=== PATIENT | female | born 1970 | race Caucasian/White ===

== ENCOUNTER 2025-04-21 22:04 | Inpatient (IN) | payer MEDICARE, SELFPAY ==
--- OUTSIDE RECORDS SUMMARY | 2025-03-25 06:20 | XMS_ITS ---
Author Organization [facility] Address [address] [place] [phone] Care Team Providers Care Education Associate Name Role Phone Brenden MENDEZ, Krysta Primary Care Provider Unavailab florentin MirandacolinRaul negron Unavailable [phone] Deandra Riley Unavailable [phone] REASON FOR VISIT hepatic lesion Encounters Encounter Location Date Provider Diagnosis [facility] [address] [place] [phone] 03/25/2025 Deandra Riley Plan Of Treatment No Information Progress Notes * Gloria ST ADOB: [birth year] (54 yo F)Acc No.[id number]:03/25/2025 Progress Notes Patient: Gloria MONTILLA Provider: BABS Calderón :1970 A ge:54 Y S ex:Female Date:03/25/2025 Phone: Address:[address] [place] [address], [address] [place], [place] [phone] Pcp:Krysta Wilcox NP Subjective: * Chief Complaints: * 1 . Hepatic lesion. * Medical History: * Implants: Objective: * Vitals: * Physical Examination: Assessment: Plan: * Treatment: * * Electronic signature of BABS Pulliam on 04/22/2025 at 12:15 AM EDT Sign off status: Pending * Provider: BABS Calderón Date: 0 03/25/2025 Generated for Bronson mark/Azalia/eTransmitting on: 0 04/22/2025 12:15 AM EDT
--- OUTSIDE RECORDS SUMMARY | 2025-04-03 05:30 | XMS_ITS ---
Author Organization [facility] Address [address] [place] [phone] Care Team Providers Care Stick Feeder Name Role Phone Brenden MENDEZ, Krysta Primary Care Provider Unavailab florentin Raul Rust Unavailable [phone] Alka Gonzalez Unavailable [phone] REASON FOR VISIT [facility] 03/11 SOB, [facility] DC 03/24 Encounters Encounter Location Date Provider Diagnosis [facility] [address] [place] [phone] 04/03/2025 Alka Gonzalez Plan Of Treatment No Information Progress Notes * Gloria ST ADOB: [birth year] (54 yo F)Acc No.[id number]:04/03/2025 Patient: Gloria MONTILLA Provider: Nixon Gonzalez NP :1970 A ge:54 Y S ex:Female Date:04/03/2025 Phone: Address:[address] [place] [address], [address] [place] [phone] Pcp:Krysta Wilcox NP Subjective: * Chief Complaints: * 1 . [facility] 03/11 SOB, [facility] DC 03/24. * Medical History: * Implants: Objective: * Vitals: * Physical Examination: Assessment: Plan: * Treatment: * * Electronic signature of DENEEN Dickson, [id number] on 04/22/2025 at 12:15 AM EDT Sign off status: Pending * Provider: Nixon Gonzalez NP Date: 0 04/03/2025 Generated for Bronson mark/Azalia/Jamie on: 0 04/22/2025 12:15 AM EDT
--- OUTSIDE RECORDS SUMMARY | 2025-04-09 06:00 | XMS_ITS ---
Author Organization [facility] Address [address] [place] [phone] Care Team Providers Care Cable Puller Name Role Phone Brenden MENDEZ, Krysta Primary Care Provider Unavailab florentin MirandacolinRaul negron Unavailable [phone] Deandra Riley Unavailable [phone] REASON FOR VISIT hepatic lesion Encounters Encounter Location Date Provider Diagnosis [facility] [address] [place] [phone] 04/09/2025 Deandra Riley Plan Of Treatment No Information Progress Notes * Gloria ROSE ADOB: [birth year] (54 yo F)Acc No.[id number]:04/09/2025 Progress Notes Patient: Gloria MONTILLA Provider: BABS Calderón :1970 A ge:54 Y S ex:Female Date:04/09/2025 Phone: Address:[address] [place] [address], [address] [place], [place] [phone] Pcp:Krysta Wilcox NP Subjective: * Chief Complaints: * 1 . Hepatic lesion. * Medical History: * Implants: Objective: * Vitals: * Physical Examination: Assessment: Plan: * Treatment: * * Electronic signature of BABS Pulliam on 04/22/2025 at 12:14 AM EDT Sign off status: Pending * Provider: BABS Calderón Date: 0 04/09/2025 Generated for Bronson mark/Azalia/eTransmitting on: 04/22/2025 12:14 AM EDT
[2025-04-21 22:12] VITALS: BP 145/106; PULSE 114; PULSE 115; RESP 18; TEMP 37.3; O2SAT 98; BMI 45.5
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
[2025-04-21 22:55] VITALS: RESP 16
[2025-04-21 23:19] LABS: MANUAL DIFF FLAG NO
[2025-04-21 23:20] LABS: Hematocrit 40.1 % (37.0-47.0); Hemoglobin 13.1 g/dl (12.0-16.0); Imm Gran Abs Auto 0.09 X10*3/uL (0.00-0.03); Imm Gran Pct Auto 0.7 % (0.0-0.4); Lymphocytes Absolute Auto 2.2 X10*3/uL (1.2-4.9); Mean Corpuscular HGB Conc 32.7 g/dl (31.0-35.0); Mean Corpuscular Hemoglobin 27.5 pg (27.0-33.0); Mean Corpuscular Volume 84.2 fL (80.0-98.0); NRBC Abs Auto 0.000 X10*3/uL (0.0-0.012); NRBC Pct Auto 0.0 /100WBC (0.0-0.2); Platelet Count 265 X10*3/uL (160-400); Red Blood Count 4.76 X10*6/uL (4.20-5.50); White Blood Count 12.5 X10*3/uL (4.8-10.8)
[2025-04-21 23:23] LABS: Appearance Urine Clear; Glucose Urine UA Negative (Negative); PH 5.5 (5.0-9.0); Specific Gravity - Urine 1.015 (1.005-1.025); UMIC TRIGGER UACC YES
[2025-04-21 23:28] LABS: UACC Culture Trigger YES
[2025-04-21 23:32] LABS: UPreg QC Valid YES
[2025-04-21 23:33] LABS: Cannabinoid Screen Urine Not Detected (Not Detect)
[2025-04-21 23:35] LABS: Alanine Aminotransferase 28 U/L (0-31); Albumin Level 4.3 g/dL (3.5-5.0); Alkaline Phosphatase 137 U/L (39-117); Anion Gap 16 (12-20); Aspartate Amino Transferase 29 U/L (5-31); Blood Urea Nitrogen 16 mg/dL (9-16); Calcium 9.7 mg/dL (8.4-10.2); Carbon Dioxide 25 mmol/L (22-29); Chloride 101 mmol/L (96-108); Creatinine Clr Calc Pharmacy 76.9; Estimated Glomerular Filt Rate 53; Potassium 3.5 mmol/L (3.3-5.1); Sodium 138 mmol/L (135-145); Total Protein 7.3 g/dL (6.5-8.0)
--- OUTSIDE RECORDS SUMMARY | 2025-04-22 00:11 | XMS_ITS | Encounter Summary ---
Author Organization Nataliya Finch [facility] Address [address] [place] [address] Care Team Providers Care Snow Removing Supervisor Name Role Phone Estela Oglesby Primary Care Provider [phone] Encounter Details Date Type Department Care Team (Late st Contact Info) Description 01/03/2024 Lab [facility] Orders Alicia Hood MD [address] [place] [phone] Social History Tobacco Use Types Packs/Day Years Used Date Smoking Tobacco: Never Assessed Comments Unknown Sex and Gender Information Value Date Recorded Sex Assigned at Not on file Legal Sex Female 5:26 PM EST Gender Identity Not on file Sexual Orientation Not on file documented as of this encounter Plan of Treatment Not on file documented as of this encounter Procedures Procedure Name Priority Date/Time Associated Diagnosis Comments CULTURE, AEROBIC, URINE Routine 01/03/2024 11:40 AM EDT documented in this encounter Results * Culture, Aerobic, Urine (01/03/2024 11:40 AM EDT) Culture 10,000-50,000 CFU/mL mixed urogenital dmitri, probable contamination JORDAN 01/04/2024 12:42 PM EDT [facility] Urine MID-STREAM URINE SPECIMEN / Unknown 01/03/2024 11:40 AM EDT 01/03/2024 3:49 PM EDT us Alicia Hood MD MICROBIOLOGY - GENERAL ORDER MACKENZIE Final Result [facility] [address] [place] [address], documented in this encounter Visit Diagnoses Not on filedocumented in this encounter Care Teams Snow Removing Supervisor Relationship Specialty Start Date End Date Estela Oglesby [address] [place] [phone] PCP - General 01/02/24 documented as of this encounter
--- OUTSIDE RECORDS SUMMARY | 2025-04-22 00:11 | XMS_ITS | Encounter Summary ---
Author Organization [facility] Address [address] [place] [address] Care Team Providers Care Storage Consultant Name Role Phone Jaylyn Andrews MD Unavailable [phone] Irena Rodriguez MD Unavailable Ashtyn Love RN Unavailable Grupo Albarran NP Primary Care Provider [phone] Krysta Wilcox NP Primary Care Provider [phone] Encounter Details Date Type Department Care Team (Late st Contact Info) Description 01/27/2025 Lab Requisition [address] [address] Daniel Springer NP [address] [place] [phone] Major depressive disorder, recurrent severe without psychotic features (HCC) Social History Tobacco Use Types Packs/Day Years Used Date Smoking Tobacco: Former Cigarettes Q uit: 12/20/1990 Smokeless Tobacco: Never Alcohol Use Standard Drinks/Week Comments Never 0 (1 standard drink = 0.6 oz pur e alcohol) Housing Stability - SDOH Screener Answer Date Recorded What is your living situation today? Steady hous ing 04/11/2024 Do you need help with Housing/Prison resources? Not on file 04/11/2024 Patient indicated no issues from the most recent SDOH questionnaire Not on file 04/11/2024 Homeless diagnosis active in problem list or in an encounter in the past year? Not on file 04/11/2024 Transportation - SDOH Screener Answer D ate Recorded Do you have trouble getting transportation to medical appointments? No 04/11/2024 Do you need help with Transp ortation to medical appointments? Not on file 04/11/2024 Patient indicated no issues from the most recent SDOH questionnaire Not on file 04/11/2024 Food Insecurity - SDOH Screener Answer Date Recorded Within the past 12 months, t he food you bought just didn't last and you didn't have money to get more? Sometimes true Within the past 12 months, y ou worried whether your food would run out before you got money to buy more? Sometimes true 2023 Do you need help with Food resources? Not on shay e 04/11/2024 Patient indicated no issues from the most recent SDOH questionnaire Not on file 04/11/2024 Utilities - SDOH Screener Answer Date R ecorded Do you have trouble paying y our heating and/or electricity bill? No 04/11/2024 Do you need help with Utilities? Not on file 04/11/2024 Patient indicated no issues from the most recent SDOH questionnaire Not on file 04/11/2024 Comments No Sex and Gender Information Value Date Recorded Sex Assigned at Female 03/17/2024 11:06 AM EDT Legal Sex Female 7:42 PM EDT Gender Identity Female 03/17/2024 11:06 AM EDT Sexual Orientation Straight 03/17/2024 11 :06 AM EDT documented as of this encounter Plan of Treatment Upcoming Encounters Date Type Department Care Team (Late st Contact Info) Description 06/25/2025 9:40 AM EDT Office Visit [facility] [address] [place] [address] Arnel Causey MD [address] [place] [address] documented as of this encounter Procedures Procedure Name Priority Date/Time Associated Diagnosis Comments LIPID PROFILE, REFLEX DIRECT LDL Routine 01/27/2025 6:15 AM EDT TSH WITH REFLEX TO FREE T4 Routine 01/27/2025 6:15 AM EDT HEMOGLOBIN A1C Routine 01/27/2025 6:15 AM EDT URINE COMPLETE Routine 01/26/2025 12:40 PM EDT Major depressive disorder, recurrent severe without psychotic features (HCC) URINE CULTURE AND COLONY COUNT Routine 01/26/2025 12:40 PM EDT Major depressive disorder, recurrent severe without psychotic features (HCC) documented in this encounter Results * TSH with reflex to Free T4 (01/27/2025 6:15 AM EDT) TSH 1.973 0.550 - 4.780 uIU/mL 01/27/2025 9:59 AM EDT [facility] Blood Venipuncture / Unknown 01/27/2025 6:15 AM EDT 01/27/2025 9:06 AM EDT Narrative [facility] - 01/27/2025 9:59 AM EDT NOTE: Effective 10/28/24, the reference range has changed as follows: Old reference ranges: 0 up to 2 Years: 0.870-6.150 uIU/mL 2 Years up to 12 Years: 0.670-4.160 uIU/mL 12 Years up to 18 Years: 0.480-4.170 uIU/mL 18 Years +: 0.340-4.820 uIU/mL New Reference ranges: 0 up to 2 Years: 0.870-6.150 uIU/mL 2 Years up to 13 Years: 0.670-4.160 uIU/mL 13 Years up to 21 Years: 0.480-4.170 uIU/mL 21 Years +: 0.550-4.780 uIU/mL us Daniel [facility] LAB BLOOD ORDERABLES Final R esult [facility] [address] [place] [address] * Hemoglobin A1c (01/27/2025 6:15 AM EDT) Hemoglobin A1C 5.2 4.0 - 6.0 % 01/27/2025 10:06 AM EDT [facility] Estimated Average Glucose eAG 102.5 85.0 - 126.0 mg/dL 01/27/2025 10:06 AM EDT [facility] Blood Venipuncture / Unknown 01/27/2025 6:15 AM EDT 01/27/2025 9:06 AM EDT [facility] LAB BLOOD ORDERABLES Final R esult Performing Organization Address City/[facility] de Phone Number [facility] [address] [place] [phone] * (ABNORMAL) Lipid profile, reflex direct LDL (01/27/2025 6:15 AM EDT) Cholesterol 137 <200 mg/dL 01/27/2025 9:59 AM EDT [facility] Triglycerides 108 <150 mg/dL 01/27/2025 9:59 AM EDT [facility] HDL 34.2(L) >=60.0 mg/dL 01/27/2025 9:59 AM EDT [facility] LDL Calculated 81 0 - 100 mg/dL 01/27/2025 9:59 AM EDT [facility] Cardiac Risk Factor 4.0 0.0 - 4.4 01/27/2025 9:59 AM EDT [facility] Blood Venipuncture / Unknown 01/27/2025 6:15 AM EDT 01/27/2025 9:06 AM EDT Narrative [facility] - 01/27/2025 9:59 AM EDT Cardiac Risk Factor: Males Females 2x Average Risk 9.6 7.1 3x Average Risk 23.4 11.0 [facility] LAB BLOOD ORDERABLES Final R esult Performing Organization Address [facility] Co de Phone Number [facility] [address] [place] [phone] * Urine Culture and [place] Count (01/26/2025 12:40 PM EDT) Culture 10,000 - 50,000 colonies/ml Mixed Gram Positive Organisms SUSCEPTIBIL ITY TESTING 01/28/2025 11:01 AM EDT [facility] Urine Urine specimen obtained by clean catch procedure / Unknown Collection / Unknown 01/26/2025 12:40 PM EDT 01/27/2025 9:51 AM EDT Narrative [facility] - 01/28/2025 11:01 AM EDT Unable to determine if a potential pathogen is present due to the presence of multiple colonizing Organisms. If Clinically indicated, a Repeat Culture is recommended. Daniel Springer NP MICROBIOLOGY - GENERAL ORDER [place]ACK[place]ZIE Final Result [facility] [address] [place] [address] * (ABNORMAL) Urine Complete (01/26/2025 12:40 PM EDT) Clarity, UA Turbid(A) Clear 01/27/2025 9:51 AM EDT [facility] Color Yellow Colorless, Yellow, Light-Yello w, Dark-Yellow 01/27/2025 9:51 AM EDT [facility] Specific [place] 1.018 1.000 - 1.025 01/27/2025 9:51 AM EDT [facility] pH 5.5 5.0 - 8.0 01/27/2025 9:51 AM EDT [facility] Protein Negative Negative, 10 , 20 mg/dL 01/27/2025 9:51 AM EDT [facility] Glucose Normal Normal, 30 , 50 mg/dL 01/27/2025 9:51 AM EDT [facility] Ketones Negative Negative, Trace mg/dL 01/27/2025 9:51 AM EDT [facility] Blood Negative Negative, 0.03 mg/dL 01/27/2025 9:51 AM EDT [facility] Bilirubin UA Negative Negative mg/dL 01/27/2025 9:51 AM EDT [facility] Urobilinogen Normal Normal mg/dL 01/27/2025 9:51 AM EDT [facility] Nitrite Negative Negative 01/27/2025 9:51 AM EDT [facility] Leukocyte Esterase 75(A) Negative, 25 Yoon/uL 01/27/2025 9:51 AM EDT [facility] WBC 6-10(A) 0 - 2 HPF 01/27/2025 9:51 AM EDT [facility] RBC 0-2 0-2 HPF HPF 01/27/2025 9:51 AM EDT [facility] Squam Epithelial Moderate(A) Few HPF 025 9:51 AM EDT [facility] Mucus Few Few HPF 01/27/2025 9:51 AM EDT [facility] Bacteria Few(A) None Seen HPF 01/27/2025 9:51 AM EDT [facility] Urine Urine specimen obtained by clean catch procedure / Unknown Collection / Unknown 01/26/2025 12:40 PM EDT 01/27/2025 9:06 AM EDT Narrative [facility] - 01/27/2025 9:51 AM EDT A urine culture is being performed on this specimen due to established reflex criteria [facility] DOUBLE END TENONER OPERATOR URINE ORDERABLES Final Resul t [facility] [address] [place] [phone] documented in this encounter Visit Diagnoses Diagnosis Major depressive disorder, recurrent severe without psychotic features (HCC) documented in this encounter Care Teams Storage Consultant Relationship Specialty Start Date End Date Ha-Jaylyn Saunders MD PCP - Family Medicine 03/01/14 Grupo Goncalves NP [address] [place] [address] PCP - General Nurse Practitioner 11/10/23 03/22/25 Krysta Wilcox NP [address] [place] [address] PCP - General Family Medicine 03/23/25 Irena Rodriguez MD [address] [place] [address] [place] [address] Physician Hematology and Oncology 12/27/21 Ashtyn Love, RN Registered Nurse 12/27/21 documented as of this encounter
--- OUTSIDE RECORDS SUMMARY | 2025-04-22 00:11 | XMS_ITS | Clinical Summary ---
Author Organization [facility] Address [address] [place] [id number] Care Team Providers Care Formula Mixer Name Role Phone Estela Oglesby Primary Care Provider [phone] Allergies Active Allergy Reactions Criticality Noted Date Comments Ciprofloxacin Hives Identified As: From Cipro Iodinated Contrast Media Anaphylaxis Identified As: Contrast, CT, iodinated Olanzapine Swelling Identified As: From Zyprexa Ondansetron Rash Identified As: From Zofran Penicillins Rash Risperidone Hives Identified As: From Risperdal Sertraline Other (See Comments) Identified As: From Zoloft; Other Reaction(s): Depression Shellfish Derived Anaphylaxis Sulfamethoxazole Rash Identified As: From Bactrim Trimethoprim Rash Identified As: From Bactrim Medications isosorbide mononitrate ER (IMDUR) 30 MG 24 hr tablet 30 MG PO QAM 4 Active carvediloL (COREG) 6.25 MG tablet 6.25 MG PO DAILY 4 Active bumetanide (BUMEX) 2 MG tablet 2 MG PO DAILY 4 Active atorvaSTATin (LIPITOR) 40 MG tablet 40 MG PO QPM 4 Active ezetimibe (ZETIA) 10 mg tablet 10 MG PO QAM 4 Active aspirin 81 MG EC tablet 81 MG PO DAILY 4 Active budesonide-glyco pyr-formoterol (BREZTRI AEROSPHERE) 160-9-4.8 mcg/actuation HFAA 1 INH INHALATION BID 4 Active spironolactone (ALDACTONE) 25 MG tablet 25 MG PO QAM 4 Active ARIPiprazole (ABILIFY) 10 MG tablet 25 MG PO QAM 4 Active nitroglycerin (NITROSTAT) 0.4 MG SL tablet 0.4 MG SUBLINGUAL Q5M PRN Chest Pain 4 Active pantoprazole (PROTONIX) [address] tablet 40 MG PO QAM 4 Active Active Problems Problem Noted Date Diagnosed Date Depression, unspecified 01/02/2024 Social History Tobacco Use Types Packs/Day Years Used Date Smoking Tobacco: Never Assessed Comments Unknown Sex and Gender Information Value Date Recorded Sex Assigned at Not on file Legal Sex Female 5:26 PM EST Gender Identity Not on file Sexual Orientation Not on file Last Filed Vital Signs Vital Sign Reading Time Taken Comments Blood Pressure - - Pulse - - Temperature - - Respiratory Rate - - Oxygen Saturation - - Inhaled Oxygen Concentration - - Weight 121 kg (266 lb 12.1 oz) 01/02/2024 4:09 P M EDT Height 152.4 cm (5') 01/02/2024 4:09 PM EDT Body Mass Index 52.1 01/02/2024 4:09 PM EDT Plan of Treatment Health Maintenance Due Date Last Done Comments Blood Pressure 1971 Lipid Panel 1971 Depression Screening 1975 Hepatitis C Screening 1989 DTaP,Tdap,and Td Vaccines (1 - Tdap) 1990 Pap Smear 1992 Cervical Cancer Screening 2001 HPV/Cotest 2001 Breast Cancer Screening 2011 CT Colonography 2016 Colonoscopy 2016 Colorectal Cancer Screening 2016 FIT 2016 FOBT 2016 Multitarget Stool DNA (Cologuard) 2016 Sigmoidoscopy 2016 Pneumococcal Vaccine (1 of 1 - PCV) 2021 Zoster Vaccine (1 of 2) 2021 COVID-19 Vaccine ( - 2023-2 5 season) 2024 Influenza Vaccine (#1) 2025 Meningococcal B Vaccines Aged Out No longer eligible based on patient's age to complete this topic Meningococcal Vaccines Aged Out No lo nger eligible based on patient's age to complete this topic Pneumococcal Vaccine: Pediat rics (0 to 5 Years) and At-Risk Patients (6 to 64 Years) Aged Out No longer eligible b ased on patient's age to complete this topic Care Teams Formula Mixer Relationship Specialty Start Date End Date Estela Oglesby [address] [place] [phone] PCP - General 01/02/24
--- OUTSIDE RECORDS SUMMARY | 2025-04-22 00:11 | XMS_ITS | Encounter Summary ---
Author Organization [facility] Address [address] [place] [address] Care Team Providers Care Stone Spreader Operator Name Role Phone Jaylyn Andrews MD Unavailable [phone] Irena Rodriguez MD Unavailable Ashtyn Love RN Unavailable Grupo Albarran NAPHTHA WASHING SYSTEM OPERATOR Primary Care Provider [phone] Krysta Wilcox NAPHTHA WASHING SYSTEM OPERATOR Primary Care Provider [phone] Encounter Details Date Type Department Care Team (Late st Contact Info) Description 03/18/2025 Pharmacy Visit [facility] [address] [place] [address] Social History Tobacco Use Types Packs/Day Years Used Date Smoking Tobacco: Former Cigarettes Q uit: 12/20/1990 Smokeless Tobacco: Never Alcohol Use Standard Drinks/Week Comments Never 0 (1 standard drink = 0.6 oz pur e alcohol) Housing Stability - SDOH Screener Answer Date Recorded What is your living situation today? Steady hous ing 03/17/2025 Do you need help with Housing/Mcc resources? Not on file 03/17/2025 Patient indicated no issues from the most recent SDOH questionnaire Not on file 03/17/2025 Homeless diagnosis active in problem list or in an encounter in the past year? Not on file 03/17/2025 Transportation - SDOH Screener Answer D ate Recorded Do you have trouble getting transportation to medical appointments? No 03/17/2025 Do you need help with Transp ortation to medical appointments? Not on file 03/17/2025 Patient indicated no issues from the most recent SDOH questionnaire Not on file 03/17/2025 Food Insecurity - SDOH Screener Answer Date Recorded Within the past 12 months, t he food you bought just didn't last and you didn't have money to get more? Often true 03/17/2025 Within the past 12 months, y ou worried whether your food would run out before you got money to buy more? Often true 2024 Do you need help with Food resources? Not on shay e 03/17/2025 Patient indicated no issues from the most recent SDOH questionnaire Not on file 03/17/2025 Utilities - SDOH Screener Answer Date R ecorded Do you have trouble paying y our heating and/or electricity bill? No 03/17/2025 Do you need help with Utilities? Not on file 03/17/2025 Patient indicated no issues from the most recent SDOH questionnaire Not on file 03/17/2025 Comments No Sex and Gender Information Value [...] Description 06/25/2025 9:40 AM EDT Office Visit [facility] [address] [place] [address] Arnel Causey MD [address] [place] [address] documented as of this encounter Visit Diagnoses Not on filedocumented in this encounter Care Teams Stone Spreader Operator Relationship Specialty Start Date End Date Jaylyn Andrews MD PCP - Family Medicine 03/01/14 Grupo Goncalves NP [address] [place] [address] PCP - General Nurse Practitioner 11/10/23 03/22/25 Krysta Wilcox NP [address] [place] [address] PCP - General Family Medicine 03/23/25 Irena Rodriguez MD [address] [place] [address] [place] [address] Physician Hematology and Oncology 12/27/21 Ashtyn Love, RN Registered Nurse 12/27/21 documented as of this encounter
--- OUTSIDE RECORDS SUMMARY | 2025-04-22 00:12 | XMS_ITS | Encounter Summary ---
Author Organization [facility] Address [address] [place] [address] Phone Care Team Providers Care Histologic Aide Name Role Phone Luci Chilel MD Primary Care Provider Luz Mccartney MD Unavailable Unavailable Krysta Wilcox NP Unavailable Encounter Details Date Type Department Care Team (Late st Contact Info) Description 05/28/2018 Orders Only [facility] [address] [place] [id number] Luz Mccartney MD Malignant neoplasm of central portion of right female breast, unspecified estrogen receptor status (Primary Dx) Social History Tobacco Use Types Packs/Day Years Used Date Smoking Tobacco: Never Smokeless Tobacco: Never Alcohol Use Standard Drinks/Week Comments No 0 (1 standard drink = 0.6 oz pur e alcohol) sober since 10/2013 Comments Unknown Sex and Gender Information Value Date Recorded Sex Assigned at Female 01/05/2025 9:33 AM EDT Legal Sex Female 7:09 PM EST Gender Identity Female 01/05/2025 2:04 PM EDT Sexual Orientation Straight 01/05/2025 2: 04 PM EDT documented as of this encounter Plan of Treatment Scheduled Orders Name Type Priority Associated Diagnoses Orde r Schedule SURGICAL PATHOLOGY SPECIMEN EXAM Pathology and Cytology STAT Malignant neoplasm of central portion of right female breast, unspecified estrogen receptor status 1 Occurrences starting 05/28/2018 until 05/28/2019 documented as of this encounter Visit Diagnoses Diagnosis Malignant neoplasm of central portion of right female breast, unspecified estrogen receptor status- Primary documented in this encounter Care Teams Histologic Aide Relationship Specialty Start Date End Date Luci Chilel MD PCP - General Internal Medicine 04/11/18 02/10/23 Krysta Wilcox NP [address] [place] [address] PCP - Insurance 01/05/25 Luz Mccartney MD Resident Oncology 05/28/18 documented as of this encounter
--- OUTSIDE RECORDS SUMMARY | 2025-04-22 00:12 | XMS_ITS | Encounter Summary ---
Author Organization [facility] Address [address] [facility] 7[address] [place] [address] Care Team Providers Care Staff Registered Nurse Name Role Phone WilcoxKrysta aldridge [facility] Primary Care Provider Reason for Visit * Reason Onset Date Comments Shortness of Breath 03/06/2025 Encounter Details Date Type Department Care Team (Late st Contact Info) Description 03/06/2025 Telephone HF [facility] [address] [facility], [address] [place] [address] Krysta iWlcox [facility] [address] [place] [address] Shortness of Breath Social History Tobacco Use Types Packs/Day Years Used Date Smoking Tobacco: Never Smokeless Tobacco: Never Alcohol Use Standard Drinks/Week Comments Never 0 (1 standard drink = 0.6 oz pur e alcohol) Alcohol Answer Date Recorded Q1: How often do you have a drink containing alc ohol? 1 12/09/2024 Q2: How many drinks containi ng alcohol do you have on a typical day when you are drinking? 0 12/09/2024 Q3: How often do you have six or more drinks on one occasion? 1 12/09/2024 Depression Answer Date Recorded Patient Health Questionnaire-9 Score 6 10/31/2023 Patient Health Questionnaire-9 Score 6 10/31/2023 Last PHQ-9: Questionnaire Data Not on file 0 10/31/2023 Housing Stability Answer Date Recorded What is your housing situation today? I have grace sparrow 02/16/[address] you li ve. Do you have problems with any of the following? None of the above 02/16/2025 Food Insecurity Answer Date Recorded Within the past 12 months, y ou worried that your food would run out before you got money to buy more: Never True 02/16/2025 Within the past 12 months,th e food you bought just didn't last and you didn't have enough money to get more: Never True Transportation Answer Date Recorded In the past 12 months, has l ack of transportation kept you from medical appts, meetings, work or from getting things needed for daily living? No 02/16/2025 Utilities Answer Date Recorded In the past 12 months, has t he electric, gas, oil or water company threatened to shut off services in your home? No 02/16/2025 Depression Answer Date Recorded Patient Health Questionnaire-2 Score 1 11/28/2024 Internet Access Answer Date Recorded Internet Access Q1 Yes 02/16/2025 Internet Access Q2 Not on file 02/16/2025 Comments No Sex and Gender Information Value Date Recorded Sex Assigned at Female 07/30/2023 12:25 PM EST Legal Sex Female 9:27 AM EDT Gender Identity Female 07/30/2023 12:25 PM EST Sexual Orientation Don't know 07/30/2023 12 :25 PM EST documented as of this encounter Miscellaneous Notes * Telephone Encounter - Ester Quintero LPN - 03/06/2025 5:06 PM EDT Patient walked into clinic just now asking for appointment of which none were available at this time. She states she was just discharged from [facility] in [place] this morning. States on discharge her BP was 150/86. She believes she has a CHF exacerbation and states she is swollen.Patients Pulse 117 but she is moving around the waiting room at this time and is obese. O2 96. States she has no had her inhaler all week due to hospitalization but she does have it now. Advised her to use albuterol inhaler at this time, she also takes carvidolol which she has not yet taken. She will take her medications, does not wish to go to ER at this time. Patient given appointment for tomorrow morning and is aware if chest pain, or SOB not relieved by inhaler to report to ED via 911. documented in this encounter Plan of Treatment Not on file documented as of this encounter Visit Diagnoses Not on filedocumented in this encounter Additional Health Concerns Assessment Noted Time PHQ-9 Depression Total Score: 6 10/31/19 24 11:02 AM EST documented as of this encounter Care Teams Staff Registered Nurse Relationship Specialty Start Date End Date Krysta Wilcox FNP- [address] [place] [phone] PCP - General Family Medicine 06/11/23 documented as of this encounter
--- OUTSIDE RECORDS SUMMARY | 2025-04-22 00:12 | XMS_ITS | Encounter Summary ---
Author Organization [facility] Address [address] [facility] 7[address] [place] [address] Care Team Providers Care Gluer And Wedger Name Role Phone WilcoxKrysta aldridge [facility] Primary Care Provider Encounter Details Date Type Department Care Team (Late st Contact Info) Description 02/16/2025 Results Follow-Up HF [facility] PRIMARY/PEDS [address] [facility], [address] [place] [address] Krysta Wilcox FNP-BC [address] [place] [address] NT-proBNP, Hepatitis A Antibody, Total Social History Tobacco Use Types Packs/Day Years [...] PM EST documented as of this encounter Plan of Treatment Not on file documented as of this encounter Visit Diagnoses Not on filedocumented in this encounter Additional Health Concerns Assessment Noted Time PHQ-9 Depression Total Score: 6 10/31/19 24 11:02 AM EST documented as of this encounter Care Teams Gluer And Wedger Relationship Specialty Start Date End Date Krysta Wilcox FNP- [address] [place] [address] PCP - General Family Medicine 06/11/23 documented as of this encounter
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
--- OUTSIDE RECORDS SUMMARY | 2025-04-22 00:12 | XMS_ITS | Encounter Summary ---
Author Organization [facility] r Address [address] [place] [address] Phone Care Team Providers Care Size Painter Name Role Phone Luci Chilel MD Primary Care Provider [phone] Luz Mccartney MD Unavailable Unavailable Krysta Wilcox NP Unavailable Encounter Details Date Type Department Care Team (Late st Contact Info) Description 12/13/2016 Orders Only [facility] [address] [place] [phone] Luz Mccartney MD Social History Tobacco Use Types Packs/Day Years Used Date Smoking Tobacco: Never Comments Unknown Sex and Gender Information Value Date Recorded Sex Assigned at Female 01/05/2025 9:33 AM EDT Legal Sex Female 7:09 PM EST Gender Identity Female 01/05/2025 2:04 PM EDT Sexual Orientation Straight 01/05/2025 2: 04 PM EDT documented as of this encounter Plan of Treatment Not on file documented as of this encounter Procedures Procedure Name Priority Date/Time Associated Diagnosis Comments PATHOLOGY, OUTSIDE CONSULT Routine 12/13/2016 12:00 AM EDT documented in this encounter Results * Pathology, Outside Consult (12/13/2016 12:00 AM EDT) Surgical Pathology Consultation Report Date Taken: 12/13/2016 Date Received: 05/28/2018 Physicians: Luz Mccartney MD Outside Institution: [facility] DEPARTMENT OF PATHOLOGY [address] [place] [address] Specimen(s) Received RIGHT BREAST ASPIRATE MASS @ 9 O'CLOCK, 5.0 cm FROM NIPPLE, CYTOSPIN AND CELL BLOCK ([id number]) Final Diagnosis RIGHT BREAST ASPIRATE MASS @ 9 O'CLOCK, 5.0 cm FROM NIPPLE, CYTOSPIN AND CELL BLOCK ([id number]): NECROINFLAMMATORY DEBRIS. NEGATIVE FOR MALIGNANCY. CYTOKERATIN IMMUNOHISTOCHEMICAL STAIN PERFORMED AT OUTSIDE INSTITUTION SUPPORTS THE DIAGNOSIS. Report Electronically Signed Robert Teague MD Clinical diagnosis and History Right breast seroma/mass @ 9 o'clock, 5.0 cm from nipple Slide Block Description Received from [facility] thru the office of Dr. Luz Mccartney are three slides labeled ([id number]) belonging to the above named patient with their pathology report. By the signature above, the senior pathologist certifies that s/he personally conducted the evaluation of the described specimen(s) and rendered the diagnosis(es) related thereto. COPATH 12/13/2016 05/28/2018 5:4 6 PM EDT us Luz Mccartney MD PATHOLOGY/CYTOLOGY ORDERABLES Fi nal Result [facility] Department of Anatomic Pathology CLIA:[id number] [address] [place] [address], documented in this encounter Visit Diagnoses Not on filedocumented in this encounter Care Teams Size Painter Relationship Specialty Start Date End Date Luci Chilel MD PCP - General Internal Medicine 04/11/18 02/10/23 Krysta Wilcox NP [address] [place] [address] [address] [place] [address] PCP - Insurance 01/05/25 Luz Mccartney MD Resident Oncology 05/28/18 documented as of this encounter
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
--- OUTSIDE RECORDS SUMMARY | 2025-04-22 00:12 | XMS_ITS | Encounter Summary ---
Author Organization [employer] Address [address] [facility] 7t [place] [address] Care Team Providers Care Assistant Project Manager Name Role Phone WilcoxKrysta aldridge [facility] Primary Care Provider [phone] Reason for Visit * Reason Onset Date Comments Referral 02/11/2025 Encounter Details Date Type Department Care Team (Late st Contact Info) Description 02/11/2025 Telephone HF [facility] PRIMARY/PEDS [address], [address] [place] [address] Krysta [facility] [address] [place] [address] Referral Social History Tobacco Use Types Packs/Day Years [...] What is your housing situation today? I do not have housing (Staying with others, in a hotel, in a chcf, living outside on the street, on a beach, in a car, or in a park 01/10/[address] you li ve. Do you have problems with any of the following? None of the above 01/10/2024 Food Insecurity Answer Date Recorded Within the past 12 months, y ou worried that your food would run out before you got money to buy more: Sometimes True 2023 Within the past 12 months,th e food you bought just didn't last and you didn't have enough money to get more: Sometimes True 01/10/2024 Transportation Answer Date Recorded In the past 12 months, has l ack of transportation kept you from medical appts, meetings, work or from getting things needed for daily living? No 10/31/2023 Utilities Answer Date Recorded In the past 12 months, has t he electric, gas, oil or water company threatened to shut off services in your home? No 10/31/2023 Depression Answer Date Recorded Patient Health Questionnaire-2 Score 1 11/28/2024 Comments No Sex and Gender Information Value Date Recorded Sex Assigned at Female 07/30/2023 12:25 PM EST Legal Sex Female 9:27 AM EDT Gender Identity Female 07/30/2023 12:25 PM EST Sexual Orientation Don't know 07/30/2023 12 :25 PM EST documented as of this encounter Miscellaneous Notes * Telephone Encounter - Alisha Bender NP - 02/17/2025 1:16 PM EDT Reviewing labs that were ordered at her last visit with m 12/19/24. I saw note pt was seen in ER forchest pain. Has follow up with you scheduled on 03/16. * Telephone Encounter - Ester Quintero LPN - 02/17/2025 10:49 AM EDT Patient has an appointment with Juanita on 03/17/25. Does she need us to place a new referral for this? * Telephone Encounter - Chelo Dudley - 02/11/2025 9:00 AM EDT Patient calling requesting new referral for PSY therapy. Pt last saw Dulce Valdes And Sara Hansen documented in this encounter Plan of Treatment Not on file documented as of this encounter Visit Diagnoses Not on filedocumented in this encounter Additional Health Concerns Assessment Noted Time PHQ-9 Depression Total Score: 6 10/31/19 24 11:02 AM EST documented as of this encounter Care Teams Assistant Project Manager Relationship Specialty Start Date End Date Krysta Wilcox FNP-BC [address] [place] [address] PCP - General Family Medicine 06/11/23 documented as of this encounter
--- OUTSIDE RECORDS SUMMARY | 2025-04-22 00:13 | XMS_ITS | Encounter Summary ---
Author Organization [email or web address] Address [address] [facility] 7t [place] [address] Care Team Providers Care Parts Control Clerk Name Role Phone Krysta Wilcox [facility] Primary Care Provider Encounter Details Date Type Department Care Team (Late st Contact Info) Description 02/17/2025 Results Follow-Up [facility] PRIMARY/PEDS [address], [address] [place] [address] Alisha Puckett I., COMMUNITY SERVICE TECHNICIAN [address] [place] [address] Hepatitis B Surface Antigen, Hepatitis B Core Antibody, Total, Hepatitis C Ab w/Reflex to HCV Quant NAAT if Positive, Additional followed-up results: 3 Social History Tobacco Use Types Packs/Day Years [...] documented as of this encounter Care Teams Parts Control Clerk Relationship Specialty Start Date End Date Krysta Wilcox FNP-REJI [address] [place] [address] PCP - General Family Medicine 06/11/23 documented as of this encounter
--- OUTSIDE RECORDS SUMMARY | 2025-04-22 00:13 | XMS_ITS | Encounter Summary ---
Author Organization [email or web address] Address [address] [facility] 7t [place] [address] Care Team Providers Care Information Systems Director Name Role Phone WilcoxrKysta aldridge [facility] Primary Care Provider Encounter Details Date Type Department Care Team (Late st Contact Info) Description 04/21/2025 Telephone HF [facility] PRIMARY/PEDS [address] [address] [facility], [address] [place] [address] Krysta Wilcox FNP-BC [address] [place] [address] Social History Tobacco Use Types Packs/Day Years [...] encounter Miscellaneous Notes * Telephone Encounter - Zahida Marquez - 04/21/2025 11:46 AM EDT Working on work queue Called multiple times but was declined each time Will be sending letter to home documented in this encounter Plan of Treatment Not on file documented as of this encounter Visit Diagnoses Not on filedocumented in this encounter Additional Health Concerns Assessment Noted Time PHQ-9 Depression Total Score: 6 10/31/19 24 11:02 AM EST documented as of this encounter Care Teams Information Systems Director Relationship Specialty Start Date End Date Krysta Wilcox FNP-BC [address] [place] [address] PCP - General Family Medicine 06/11/23 documented as of this encounter
--- OUTSIDE RECORDS SUMMARY | 2025-04-22 00:13 | XMS_ITS | Encounter Summary ---
Author Organization [facility] Address [address] [place] [address] Care Team Providers Care Cement Mixer Name Role Phone Jaylyn Andrews MD Unavailable Irena Rodriguez MD Unavailable Ashtyn Love RN Unavailable [facility] Krysta Ordoñez UNDERWRITING SALES REPRESENTATIVE Primary Care Provider [employer] UNDERWRITING SALES REPRESENTATIVE Primary Care Provider [phone] Krysta Wilcox UNDERWRITING SALES REPRESENTATIVE Primary Care Provider Encounter Details Date Type Department Care Team (Late st Contact Info) Description 08/30/2023 Ancillary Orders [facility] [address] [place] [address] Ian Jose MD [address] [place] [address] - Rad. [place], [place] [id number] Encounter for medical screening examination (Primary Dx) Social History Tobacco Use Types Packs/Day Years Used Date Smoking Tobacco: Former Cigarettes Q uit: 12/20/1990 Smokeless Tobacco: Never Alcohol Use Standard Drinks/Week Comments Never 0 (1 standard drink = 0.6 oz pur e alcohol) Comments No Sex and Gender Information Value [...] Description 06/25/2025 9:40 AM EDT Office Visit [facility] [address] [place] [address] Arnel Causey MD [address] [place] [address] documented as of this encounter Results * ARLEEN outside imaging (08/30/2023 2:06 PM EST) Narrative SYSTEMGENERATED, DOCUMENTATION - 08/30/2023 2:06 PM EST If you receive this notification, it is due to a request to upload outside imaging from another organization. The date of this result may or may not coincide with your last visit to our organization. There is no need for any action on your part. us Ian Jose MD IMG MAMMOGRAPHY ORDERABLES Final Result documented in this encounter Visit Diagnoses Diagnosis Encounter for medical screening examination Encounter for medical screening examination- Primary documented in this encounter Additional Health Concerns Infection Onset Date Last Indicated Resolved Time PUI COVID 01/23/2025 01/24/2025 01/24/2025 12:4 2 AM EDT documented as of this encounter Care Teams Cement Mixer Relationship Specialty Start Date End Date Ha-Jaylyn Saunders MD PCP - Family Medicine 03/01/14 Krysta Wilcox UNDERWRITING SALES REPRESENTATIVE [address] [place] [address] PCP - General Family Medicine 09/03/23 11/09/23 Grupo Goncalves NP [address] [place] [address] PCP - General Nurse Practitioner 11/10/23 03/22/25 Krysta Wilcox NP [address] [place] [address] PCP - General Family Medicine 03/23/25 Irena Rodrigeuz MD [address] [place] [address] [place] [address] Physician Hematology and Oncology 12/27/21 Ashtyn Love, RN Registered Nurse 12/27/21 documented as of this encounter
--- OUTSIDE RECORDS SUMMARY | 2025-04-22 00:13 | XMS_ITS | Clinical Summary ---
Author Organization [facility] Address [address] [facility] [address] [place] [address] Phone Care Team Providers Care Phlebotomy Technician Name Role Phone Self-Referred, Patient Unavailable Unavailab Danie Penny MD Unavailable Estela Oglesby DO Primary Care Provider Active Problems Problem Noted Date Diagnosed Date Malignant neoplasm of centra l portion of right female breast 10/31/2016 Social History Tobacco Use Types Packs/Day Years Used Date Smoking Tobacco: Never Assessed Education Answer Date Recorded Are you interested in more education? Not on shay e 01/06/2023 Are you concerned about learning? Not on file 01/06/2023 No 01/06/2023 No 01/06/2023 Digital Access Answer Date Recorded No 01/21/2023 No 01/21/2023 No 01/21/2023 Reliable internet access at home? Not on file 01/21/2023 Device with a working camera? Not on file Comments Unknown Sex and Gender Information Value Date Recorded Sex Assigned at Female 01/16/2022 1:07 PM EDT Legal Sex Female 7:00 PM EST Gender Identity Female 01/16/2022 1:07 PM EDT Sexual Orientation Straight 01/16/2022 1: 07 PM EDT Plan of Treatment Health Maintenance Due Date Last Done Comments LIPID PANEL 1971 DEPRESSION SCREENING 1983 SMOKING Hx and SMOKELESS TOBACCO SCREENING 1984 HIV ONE-TIME SCREENING (18-6 5 YEARS) 1989 PNEUMOCOCCAL VACCINES (50+ years) (1 of 2 - PCV) 1990 ZOSTER VACCINES (1 of 2) 1990 PAP SMEAR 1992 COLOGUARD 2016 COLONOSCOPY 2016 COLORECTAL CANCER SCREENING 2016 FIT TEST 2016 FOBT 2016 SIGMOIDOSCOPY 2016 VIRTUAL COLONOSCOPY 2016 Adult Td,Tdap Booster 07/31/2017 07/31/2007 MAMMOGRAM 12/17/2020 12/17/2018, 08/07/2007 COVID-19 VACCINE (2023-2 5 season) 2024 05/23/2021, 04/22/2021 HEPATITIS C SCREENING Completed 06/02/2018 HEPATITIS A VACCINES Aged Out No long er eligible based on patient's age to complete this topic HIB VACCINES Aged Out No longer eligi ble based on patient's age to complete this topic MENINGOCOCCAL VACCINES (ACWY) Aged Out No longer eligible based on patient's age to complete this topic MENINGOCOCCAL VACCINES (B) Aged Out N o longer eligible based on patient's age to complete this topic Medical Devices Not on file Procedures Procedure Name Priority Date/Time Associated Diagnosis Comments BI MAMMOGRAM DIAGNOSTIC (BILATERAL) Routine 08/07/2007 11:03 AM EST from Last 3 Months or Most Recently Relevant to Health Maintenance Results * Mammogram Diagnostic No CAD (Bilateral) (08/07/2007 11:03 AM EST) Anatomical Region Laterality Modality Breast Left, Breast Right, Breast Bilateral Bila teral Mammography 08/07/2007 11:0 3 AM EST Narrative 08/07/2007 11:03 AM EST Exam Number: [id number] Report Status: Signed Type: SONAM DIGITAL DX MAMMOGRAM Date/Time: 08/07/2007 11:03 Ordering Provider: Associated Reports: [id number]: ADD ON CODE DIAGNOSTIC CAD [id number]: BREAST ULTRASOUND CARL ROSE [id number] DR REYNALDO HUNG [facility] [id number] UNIDENTIFIED, 1970 36 08/07/2007 1312-83 : Reason For Today's Visit? RIGHT BREAST MASS EXAM# TYPE/EXAM RESULT [id number] ARLEEN/SONAM DIGITAL DX MAMMOGRAM BIRADS 2 BENIGN FINDINGS [id number] ARLEEN/ADD ON CODE DIAGNOSTIC CAD BIRADS 2 BENIGN FINDINGS [id number] ARLEEN/BREAST ULTRASOUND BIRADS 2 BENIGN FINDINGS BILATERAL DIGITAL MAMMOGRAM WITH CAD: The patient presents for her baseline mammogram as well as for evaluation of a palpable lump at 7 o'clock in the right breast. Digital mammograms were obtained. The films were reviewed with the [employer] Computer Aided Detection Scanner (Version 5.3). No previous films are available for comparison. A BB was placed to joe the palpable finding in the inferolateral right breast and in addition to the routine views, a laterally exaggerated CC view of the left breast was performed. The breast tissue is heterogeneously dense, an appearance which lowers the sensitivity of mammography. There are no suspicious masses, suspicious clustered microcalcifications, areas of distortion or other signs of malignancy. BILATERAL BREAST ULTRASOUND: Ultrasound examination of the right breast was performed for followup of the palpable lump. On physical exam, there is soft nodularity, but I could not palpate a discrete mass. The ultrasound showed dense fibroglandular tissue. There was no evidence of a discrete solid mass. Ultrasound of the lateral left breast was performed for followup of dense breast tissue shown on the mammogram. Again, the ultrasound showed dense fibroglandular tissue with no focal solid lesions. IMPRESSION: Dense breast tissue. No evidence of malignancy. No abnormality was identified mammographically nor on followup ultrasound exam of the right breast. The patient will schedule a followup appointment with Dr. Sargnet for a followup physical exam. BIRADS 2 - Benign findings. The results were conveyed to the patient today at the time of the appointment and a letter given explaining the findings and follow up recommendation. [Dictation ID#[id number]] Reported By: BRADFORD FIELDS MD CC: Procedure Note Sys, Conversion Provider Not In - 05/25/2015 Exam Number: [id number] Report Status: Signed Type: SONAM DIGITAL DX MAMMOGRAM Date/Time: 08/07/2007 11:03 Ordering Provider: Associated Reports: [id number]: ADD ON CODE DIAGNOSTIC CAD [id number]: BREAST ULTRASOUND CARL ROSE [id number] DR REYNALDO HUNG [facility] [id number] [place], 1970 37 08/07/2007 1312-83 : Reason For Today's Visit? RIGHT BREAST MASS EXAM# TYPE/EXAM RESULT [id number] ARLEEN/SONAM DIGITAL DX MAMMOGRAM BIRADS 2 BENIGN FINDINGS [id number] [facility]/ADD ON CODE DIAGNOSTIC CAD BIRADS 2 BENIGN FINDINGS [id number] ARLEEN/BREAST ULTRASOUND BIRADS 2 BENIGN FINDINGS BILATERAL DIGITAL MAMMOGRAM WITH CAD: The patient presents for her baseline mammogram as well as for evaluation of a palpable lump at 7 o'clock in the right breast. Digital mammograms were obtained. The films were reviewed with the [employer] Computer Aided Detection Scanner (Version 5.3). No previousfilms are available for comparison. A BB was placed to joe the palpable finding in the inferolateral right breast and in addition to the routine views, a laterally exaggerated CC view of the left breast was performed. The breast tissue is heterogeneously dense, an appearance which lowers the sensitivity of mammography. There are no suspicious masses,suspicious clustered microcalcifications, areas of distortion or other signsof malignancy. BILATERAL BREAST ULTRASOUND: Ultrasound examination of the right breast was performed for followup of the palpable lump. Onphysical exam, there is soft nodularity, but I could not palpate a discrete mass. The ultrasound showed dense fibroglandular tissue. Therewas no evidence of a discrete solid mass. Ultrasound of the lateralleft breast was performed for followup of dense breast tissue shown onthe mammogram. Again, the ultrasound showed dense fibroglandulartissue with no focal solid lesions. IMPRESSION: Dense breast tissue. No evidence of malignancy. No abnormality was identified mammographically nor on followupultrasound exam of the right breast. The patient will schedule a followup appointment with Dr. Sargent for a followup physical exam. BIRADS 2 - Benign findings. The results were conveyed to the patient today at the time of the appointment and a letter given explaining the findings and followup recommendation. [Dictation ID#[id number]] Reported By: BRADFORD FIELDS MD CC: us Conversion Provider Not In Sys IMG MG EXAMS F inal Result from Last 3 Months or Most Recently Relevant to Health Maintenance Insurance MEDICARE PART A & B [facility] MEDICARE PART A & B [place] & B HEALTH MEDICARE PART A & [place] & B Member Subscriber Plan / Payer (Ef fective 2011-Present) Name:Carl Rose Member ID:[id number] Relation to Subscriber:Self Name:Carl Rose Subscriber ID:[id number] Payer ID:[id number] Group ID:Not on file Type:Medicare Address: [employer] [place] [phone] [place] Care Teams Phlebotomy Technician Relationship Specialty Start Date End Date Estela Oglesby DO [address] [place] [id number] [email or web address] PCP - General Internal Medicine 01/16/22 Self-Referred, Patient Referring Physician 03/14/18 Danie Garcia MD [address] [place] [id number] [email or web address] Primary Oncologist Oncology 03/19/18 Additional Source Comments The information contained in this document represents components of the legal health record. It is not the complete legal health record.[facility]
--- OUTSIDE RECORDS SUMMARY | 2025-04-22 00:13 | XMS_ITS | Encounter Summary ---
Author Organization [facility] Address [address] [place] [address] Care Team Providers Care Link Knitting Machine Operator Name Role Phone Jaylyn Andrews MD Unavailable Irena Rodriguez MD Unavailable Ashtyn Love RN Unavailable [facility] Krysta Ordoñez NETEZZA ARCHITECT Primary Care Provider [phone] Grupo Goncalves NETEZZA ARCHITECT Primary Care Provider [phone] Krysta Wilcox NETEZZA ARCHITECT Primary Care Provider Encounter Details Date Type Department Care Team (Late st Contact Info) Description 08/30/2023 Ancillary Orders [facility] - [facility] [address] [place] [address] Ian Jose MD [address] [place] [address] - Rad. [place], [place] [phone] Encounter for medical screening examination (Primary Dx) [...] Description 06/25/2025 9:40 AM EDT Office Visit [facility] [address] [place] [address] Arnel Causey MD [address] [place] [address] documented as of this encounter Results * Ultrasound outside imaging (08/30/2023 2:06 PM EST) Narrative [...] your part. us Ian Jose MD IMG US ORDERABLES Final Res ult documented in this encounter Visit Diagnoses Diagnosis Encounter for medical screening examination- Primary Encounter for medical screening examination documented in this encounter Additional Health Concerns Infection Onset Date Last Indicated Resolved Time PUI COVID 01/23/2025 01/24/2025 01/24/2025 12:4 2 AM EDT documented as of this encounter Care Teams Link Knitting Machine Operator Relationship Specialty Start Date End Date Jaylyn Andrews MD PCP - Family Medicine 03/01/14 Krysta Wilcox NP [address] [place] [address] PCP - General Family Medicine 09/03/23 11/09/23 Grupo Goncalves NP [address] [place] [address] PCP - General Nurse Practitioner 11/10/23 03/22/25 Krysta Wilcox NP [address] [place] [address] PCP - General Family Medicine 03/23/25 Irena Rodriguez MD [address] [place] [address] - [place] [address] Physician Hematology and Oncology 12/27/21 Ashtyn Love, RN Registered Nurse 12/27/21 documented as of this encounter
--- OUTSIDE RECORDS SUMMARY | 2025-04-22 00:13 | XMS_ITS | Patient Health Record ---
Author Organization [facility] Address [address] [place] [address] Care Team Providers Care Policy Loan Calculator Name Role Phone Brenden MENDEZ, Krysta Primary Care Provider Unavailab Raul Ruiz Unavailable [phone] Alka Gonzalez Unavailable [phone] Deandra Riley Unavailable [phone] Allergies Allergen (clinical drug ingredient) Drug/Non Drug Allergy documented on EMR Reaction Allergy Type Onset Date Status sulfamethoxazole / trimethoprim bactrim (uncoded) rash Allergy Active ct prep (uncoded) Unknown Allergy Active dye used scans (uncoded) anaphylaxis Allergy Active nuclear dye (uncoded) anaphylectic Allergy Active risperidone risperidal (uncoded) boils Allergy Active Shellfish (FN) shellfish (uncoded) anaphylaxis Allergy Active stress test dye (uncoded) anaphylectic Allergy Active sertraline zoloft (uncoded) Unknown Allergy Ac tive olanzapine zyprexa (uncoded) lower extremity edema Allergy Active Penicillin anaphylaxis Drug Allergy Acti ve Medications Medication SIG (Take, Route, Frequency, Duration) Notes Start Date End Date Status Isosorbide Mononitrate ER 30 MG 1 tablet in the morning Orally Once a day; Duration: 90 days Active Nitroglycerin 0.4 MG as directed Sublingual Active Meclizine HCl 12.5 MG 2 tablets as neede d Orally Once a day; Duration: 30 day(s) Active Bumetanide 1 MG 1 tablet Orally twic e a day; Duration: 90 days Active ARIPiprazole 20 MG 1 tablet Orally Once a day 08/30/2015 Active Ezetimibe 10 MG 1 tablet Orally Once a day; Duration: 90 days Active Doxazosin Mesylate 4 MG TAKE 1 TABLET BY MOUTH AT BEDTIME FOR PTSD; Duration: 30 Active Aspirin 81mg 1 tablet orally once daily Active Breztri Aerosphere 160-9-4.8 MCG/ACT Inhalation; Duration: 60 Days Active Atorvastatin Calcium 40 MG 1 tablet Oral ly Once a day; Duration: 30 day(s) Active Immunizations Vaccine Route Administration Date Status Comme nts Flu Given Out of Office Unknown 06/06/2015 Administered @ [facility] reported by patient Social History Tobacco use other than smoking: Question Answer Notes Are you an other tobacco user? No Section Notes: pt is unemployed. pt is unemployed. pt is unemployed. pt is unemployed. pt is unemployed. pt is unemployed. pt is unemployed. pt is unemployed. pt is unemployed. pt is unemployed. pt is unemployed. Problems Problem Type SNOMED Code ICD Code Onset Dates Problem Status W/U Status Risk Notes Problem Leukocytosis (249885517) Leukocytosis (D72.829) Active confirmed Problem Constipation by delayed colonic transit (34809666) Constipation by delayed colonic transit (K59.01) Active confirmed Problem Asthma (898814628) Asthma (J45.909) Active conf irmed Problem Morbid obesity (814428467) Morbid obesity with BMI of 45.0-49.9, adult (E66.01) Active confirmed Problem Body mass index 40+ - severely obese (416673792) BMI 45.0-49.9, adult (Z68.42) Active confirmed Problem Morbid obesity (734865847) Morbid obesity (E66.01) Active confirmed Problem Personal history of primary malignant neoplasm of breast (867068983) History of breast cancer (Z85.3) Active confirmed Problem Body mass index 40+ - severely obese (648749239) Body mass index (BMI) of 45.0-49.9 in adult (Z68.42) Active confirmed Problem Morbid obesity (disorder) (717702791) Morbid (severe) obesity due to excess calories (E66.01) Active confirmed Problem Hyperlipidaemia (33397367) HLD (hyperlipidemia) (E78.5) Active confirmed Problem Idiopathic urticaria (98048397) Idiopathic urticaria (L50.1) Active confirmed Problem Acute non-ST segment elevation myocardial infarction (198930007) NSTEMI (non-ST elevated myocardial infarction) (I21.4) Active confirmed Problem Anemia (646617128) Anemia, unspecified (D64.9) Active confirmed Problem Biliary sludge (disorder) (22374161) Biliary sludge determined by ultrasound (K83.8) Active confirmed Problem Abnormal uterine bleeding (25409282272335) Abnormal uterine and vaginal bleeding, unspecified (N93.9) Active confirmed Problem Allergy to drug (finding) (960938060) Drug allergy, antibiotic (Z88.1) Active confirmed Problem Morbid obesity (007831603) Morbid obesity due to excess calories (E66.01) Active confirmed Problem Malignant neoplasm of female breast (512788766) Malignant neoplasm of unspecified site of right female breast (C50.911) Active confirmed Problem Obesity (092804547) Obesity, unspecified (E66.9) Active confirmed Problem Affective psychosis (203323611) Unspecified mood [affective] disorder (F39) Active confirmed Problem Posttraumatic stress disorder (76566646) Post-traumatic stress disorder, chronic (F43.12) Active confirmed Problem Edema (99888566) Edema, unspecif ied (R60.9) Active confirmed Problem Allergy to penicillin (67342434) Allergy status to penicillin (Z88.0) Active confirmed Problem Gastroesophageal reflux disease without esophagitis (714596882) Gastroesophageal reflux disease without esophagitis (K21.9) Active confirmed Problem Lesion of liver (391944129) Liver lesion (K76.9) Active confirmed Problem Atherosclerotic heart disease of [place] coronary artery without angina pectoris (480355309752878) Coronary artery disease involving [place] coronary artery of [place] heart without angina pectoris (I25.10) Active confirmed Problem Severe obesity (43896840664690) Severe obesity (E66.01) Active confirmed Problem Acute exacerbation of chronic congestive heart failure (disorder) (196810153) Acute on chronic heart failure with preserved ejection fraction (I50.33) Active confirmed Encounters Encounter Location Date Provider Diagnosis [facility] [address] [place] [address], [place] [id number] 07/08/2024 Raul Rust [facility] [address], [place] [id number] 03/13/2025 Deandra Riley Plan Of Treatment Pending Test Test Name Order Date MAMMOGRAM SCREENING 04/22/2014 Urinalysis Dipstick w/ Reflex to Micro a nd Culture ([facility]) 11/05/2014 Urinalysis Non-Microscopic ([facility]) Office 11/05/2014 Endometiral Biopsy 09/17/2014 Q-ATISSUE PATHOLOGY 09/17/2014 Vitamin D, 25 Hydroxy([facility]) 2014 CBC with Differential (AUTO) 08/12/2015 Future Test Test Name Order Date BMP([facility]) 06/29/2015 Lipid Profile ([facility]) 06/29/2015 Hemogram and Platelet([facility]) 2014 MRI ABDOMEN W/WO CONTRAST (04179) 2018 HIDA w/ CCK 09/04/2018 HELICOBACTER PYLORI AG, EIA, STOOL (H-PY RAFAEL) 04/16/2020 Skin Test, Penicillin---donovan penicillin test template (with or without oral challenge) 04/16/2020 Skin Test, Drug--I will send you the template (with or without oral challenge 04/16/2020 Skin Patch test--attach the patch test t emplate 04/16/2020 CMP/HEPATIC([facility]) 12/23/2021 CBC with Differential (AUTO) 12/23/2021 Hepatitis Panel ([facility]) 12/26/2021 REBECA IFA SCREEN W/REFL TO TITER AND PATTE RN, IFA 12/26/2021 IRON, TIBC AND FERRITIN PANEL ([facility]) 12/26/2021 [id number] QN 12/26/2021 MITOCHONDRIAL ANTIBODY W/REFL TITER 05/0 09/2021 SMOOTH MUSCLE AB W/REFL TITER 12/26/2021 CERULOPLASMIN 12/26/2021 Insurance Providers Payer Name Payer Address Payer Phone Subscriber Number Group Number Insured Name Patient Relationship to Insured Coverage Start Date Coverage End Date [facility] [address] [place] [phone] [id number] Gloria Rose Self - patient is the insured 3 Medicaid [address] [place] [address] [id number] Gloria Rose Self - patient is the insured [employer] [address] [place] [address] [id number] Gloria Rose Self - patient is the insured [place] [address] [place] [phone] [id number] Gloria Rose Self - patient is the insured 1 Medical (General) History Medical History History ICD Code anemia obesity anxiety depression substance abuse stress mood disorder cellulitis post traumatic stress disorder Surgical History Surgery Date(Month/Year) R breast reexcision 10/23/2017 partial mastectomy R breast partial lumpectomy 09/20/2016 section lt eye (staff infection) paritall abdominal hysterect yumi and bilateral salpingectomy [facility] Dr Ramya Malone 12/08/14 Hospitalization History Reason Date(Month/Year) angina [facility] 10/2017 [facility]- cellulitis of the right breast 12/14 16 depression , at [place] 04/2014 childbirth suicide attempt overdose on klonopin 2012
--- OUTSIDE RECORDS SUMMARY | 2025-04-22 00:13 | XMS_ITS | Encounter Summary ---
Author Organization [facility] [address] [place] [address] Care Team Providers Care Office Assistant Receptionist Name Role Phone Ha-Jaylyn Saunders MD Unavailable [phone] Irena Rodriguez MD Unavailable Ashtyn Love RN Unavailable [facility] Krysta Ordoñez DOUGHNUT FRYER Primary Care Provider Grupo Goncalves D[employer]NUT FRYER Primary Care Provider Krysta Wilcox DOUGHNUT FRYER Primary Care Provider Encounter Details Date Type Department Care Team (Late st Contact Info) Description 07/03/2023 Lab Requisition [address] [address] Rater, Pascual Hart MD [address] [place] [id number] Major depressive disorder, recurrent severe without psychotic features (HCC); Post-traumatic stress disorder, unspecified Social History Tobacco Use Types Packs/Day Years [...] Description 06/25/2025 9:40 AM EDT Office Visit [facility] [address] [place] [id number] Arnel Causey MD [address] [place] [address] documented as of this encounter Procedures Procedure Name Priority Date/Time Associated Diagnosis Comments LIPID PROFILE, REFLEX DIRECT LDL Routine 07/03/2023 8:40 AM EST Major depressive disorder, recurrent severe without psychotic features (HCC) Post-traumatic stress disorder, unspecified HEMOGLOBIN A1C Routine 07/03/2023 8:40 AM EST documented in this encounter Results * Hemoglobin A1c (07/03/2023 8:40 AM EST) Hemoglobin A1C 5.1 4.0 - 6.0 % 07/03/2023 10:50 AM EST [facility] Estimated Average Glucose eAG 99.7 85.0 - 126.0 mg/dL 07/03/2023 10:50 AM EST [facility] Blood Venipuncture / Unknown 07/03/2023 8:40 AM EST 07/03/2023 9:49 AM EST Pascual Burroughs MD LAB BLOOD ORDERABLES Kayla l Result [facility] [address] [place] [id number] * (ABNORMAL) Lipid profile, reflex direct LDL (07/03/2023 8:40 AM EST) Cholesterol 165 <200 mg/dL 07/03/2023 10:54 AM EST [facility] Triglycerides 122 <150 mg/dL 07/03/2023 10:54 AM EST [facility] HDL 47.3(L) >=60.0 mg/dL 07/03/2023 10:54 AM EST [facility] LDL Calculated 93 0 - 100 mg/dL 07/03/2023 10:54 AM EST [facility] Cardiac Risk Factor 3.5 0.0 - 4.4 07/03/2023 10:54 AM EST [facility] Blood Venipuncture / Unknown 07/03/2023 8:40 AM EST 07/03/2023 9:49 AM EST Narrative [facility] - 07/03/2023 10:54 AM EST Cardiac Risk Factor: Males Females 2x Average Risk 9.6 7.1 3x Average Risk 23.4 11.0 Pascual Burroughs MD LAB BLOOD ORDERABLES Kayla l Result [facility] [address] [place] [address] documented in this encounter Visit Diagnoses Diagnosis Major depressive disorder, recurrent severe without psychotic features (HCC) Post-traumatic stress disorder, unspecified documented in this encounter Additional Health Concerns Infection Onset Date Last Indicated Resolved Time PUI COVID 01/23/2025 01/24/2025 01/24/2025 12:4 2 AM EDT documented as of this encounter Care Teams Office Assistant Receptionist Relationship Specialty Start Date End Date Bonner-Jaylyn Saunders MD PCP - Family Medicine 03/01/14 Krysta Wilcox NP [address] [place] [address] PCP - General Family Medicine 09/03/23 11/09/23 Grupo Goncalves NP [address] [place] [address] PCP - General Nurse Practitioner 11/10/23 03/22/25 Krysta Wilcox NP [address] [place] [address] PCP - General Family Medicine 03/23/25 Irena Rodriguez MD [address] [place] [address] [place] [address] Physician Hematology and Oncology 12/27/21 Ashtyn Love, RN Registered Nurse 12/27/21 documented as of this encounter
--- OUTSIDE RECORDS SUMMARY | 2025-04-22 00:13 | XMS_ITS | Clinical Summary ---
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 1.0 - 2.3 02/16/2025 4:09 PM [facility] Bilirubin, Total 1.0 0.2 - 1.0 mg/dL 02/16/2025 4:09 PM [facility] AST 32 13 - 40 U/L 02/16/2025 4:09 PM [facility] Alkaline Phosphatase 160(H) 46 - 116 IU/L 02/16/2025 4:09 PM [facility] ALT 33 7 - 40 U/L 02/16/2025 4:09 PM [facility] Venous blood specimen / Unknown 02/16/2025 10:41 AM EDT 02/16/2025 3:02 PM EDT us Alisha Bender NP LAB BLOOD ORDERABLES Fin al Result [facility] [phone] [facility] [address] [place] [address] from Last 3 Months Insurance [facility] Care Teams Director Supplier Quality Relationship Specialty Start Date End Date Krysta Wilcox FNP-BC [address] [place] [address] [address] [place] [address] PCP - General Family Medicine 06/11/23
--- OUTSIDE RECORDS SUMMARY | 2025-04-22 00:13 | XMS_ITS | Encounter Summary ---
Author Organization [facility] [address] [place] [address] Care Team Providers Care Instrument Person Name Role Phone Ha-Jaylyn Saunders MD Unavailable Irena Rodriguez MD Unavailable Ashtyn Love RN Unavailable [facility] Krysta Ordoñez SHOP LEAD Primary Care Provider Grupo Goncalves SHOP LEAD Primary Care Provider [phone] Krysta Wilcox SHOP LEAD Primary Care Provider [phone] Encounter Details Date Type Department Care Team (Late st Contact Info) Description 08/30/2023 Lab Requisition [address] [address] Rater, Pascual Hart MD [address] [place] [address] Major depressive disorder, recurrent severe without psychotic [...] Description 06/25/2025 9:40 AM EDT Office Visit [facility] [address] [place] [phone] Arnel Causey MD [address] [place] [address] documented as of this encounter Procedures Procedure Name Priority Date/Time Associated Diagnosis Comments LIPID PROFILE, REFLEX DIRECT LDL Routine 08/30/2023 7:51 AM EST Major depressive disorder, recurrent severe without psychotic features (HCC) Post-traumatic stress disorder, unspecified HEMOGLOBIN A1C Routine 08/30/2023 7:51 AM EST VALPROIC ACID LEVEL Routine 08/30/2023 7 :51 AM EST documented in this encounter Results * (ABNORMAL) Valproic Acid Level (08/30/2023 7:51 AM EST) Valproic Acid <3.0(L) 50.0 - 100.0 ug/mL 08/30/2023 12:27 PM EST [facility] Blood Venipuncture / Unknown 08/30/2023 7:51 AM EST 08/30/2023 11:22 AM EST us Pascual Burroughs MD LAB BLOOD ORDERABLES Kayla l Result [facility] [address] [place] [address] * Hemoglobin A1c (08/30/2023 7:51 AM EST) Hemoglobin A1C 5.1 4.0 - 6.0 % 08/30/2023 1:57 PM EST [facility] Estimated Average Glucose eAG 99.7 85.0 - 126.0 mg/dL 08/30/2023 1:57 PM EST [facility] Blood 08/30/2023 7:51 AM EST 08/30/2023 11:22 AM EST Pascual Burroughs MD LAB BLOOD ORDERABLES Kayla l Result Performing Organization Address [facility] Co de Phone Number [facility] [address] [place] [address] * (ABNORMAL) Lipid profile, reflex direct LDL (08/30/2023 7:51 AM EST) Cholesterol 156 <200 mg/dL 08/30/2023 12:27 PM EST [facility] Triglycerides 119 <150 mg/dL 08/30/2023 12:27 PM EST [facility] HDL 48.2(L) >=60.0 mg/dL 08/30/2023 12:27 PM EST [facility] LDL Calculated 84 0 - 100 mg/dL 08/30/2023 12:27 PM EST [facility] Cardiac Risk Factor 3.2 0.0 - 4.4 08/30/2023 12:27 PM EST [facility] Blood Venipuncture / Unknown 08/30/2023 7:51 AM EST 08/30/2023 11:22 AM EST Narrative [facility] - 08/30/2023 12:27 PM EST Cardiac Risk Factor: Males Females 2x Average Risk 9.6 7.1 3x Average Risk 23.4 11.0 Pascual Burroughs MD LAB BLOOD ORDERABLES Kayla l Result Performing Organization Address [facility] Co de Phone Number [facility] [address] [place] [address] documented in this encounter Visit Diagnoses Diagnosis Major depressive disorder, recurrent severe without psychotic features (HCC) Post-traumatic stress disorder, unspecified documented in this encounter Additional Health Concerns Infection Onset Date Last Indicated Resolved Time PUI COVID 01/23/2025 01/24/2025 01/24/2025 12:4 2 AM EDT documented as of this encounter Care Teams Instrument Person Relationship Specialty Start Date End Date Jaylyn Andrews MD PCP - Family Medicine 03/01/14 Krysta Wilcox, SHOP LEAD [address] [place] [address] PCP - General Family Medicine 09/03/23 11/09/23 Grupo Goncalves NP [address] [place] [address] PCP - General Nurse Practitioner 11/10/23 03/22/25 Krysta Wilcox SHOP LEAD [address] [place] [address] PCP - General Family Medicine 03/23/25 Irena Rodriguez MD [address] [place] [address] [place] [address] Physician Hematology and Oncology 12/27/21 Ashtyn Love, RN Registered Nurse 12/27/21 documented as of this encounter
--- OUTSIDE RECORDS SUMMARY | 2025-04-22 00:14 | XMS_ITS | Encounter Summary ---
Author Organization [facility] [address] [place] [address] Care Team Providers Care Political Science Faculty Member Name Role Phone Ha-Jaylyn Saunders MD Unavailable [phone] Irena Rodriguez MD Unavailable Ashtyn Love RN Unavailable UnavailKrysta Laurent ASSOCIATE SOFTWARE DEVELOPER Primary Care Provider [phone] Encounter Details Date Type Department Care Team (Late st Contact Info) Description 03/29/2025 Lab Requisition [address] [phone] Lio Ruiz MD [address] [place] [phone] Alcohol abuse, in remission; Major depressive disorder, recurrent, severe with psychotic symptoms (HCC) Social History Tobacco Use Types Packs/Day Years Used Date Smoking Tobacco: Former Cigarettes Q uit: 12/20/1990 Smokeless Tobacco: Never Alcohol Use Standard Drinks/Week Comments Never 0 (1 standard drink = 0.6 oz pur e alcohol) Housing Stability - SDOH Screener Answer Date Recorded What is your living situation today? Steady hous ing 03/17/2025 Do you need help with Housing/Prison resources? Not on file 03/17/2025 Patient indicated [...] Description 06/25/2025 9:40 AM EDT Office Visit [facility] [address] [place] [phone] [place] [address] [place] [address] documented as of this encounter Procedures Procedure Name Priority Date/Time Associated Diagnosis Comments URINE CULTURE AND COLONY COUNT Routine 03/28/2025 6:00 AM EDT Alcohol abuse, in remission Major depressive disorder, recurrent, severe with psychotic symptoms (HCC) documented in this encounter Results * Urine Culture and [place] Count (03/28/2025 6:00 AM EDT) Culture 10,000 - 50,000 colonies/ml Mixed Gram Positive Organisms SUSCEPTIBIL ITY TESTING 03/30/2025 8:06 AM EDT [facility] Urine Urine specimen obtained by clean catch procedure / Unknown Non-SHG Collection / Unknown 03/28/2025 6:00 AM EDT 03/29/2025 10:40 AM EDT Narrative [facility] - 03/30/2025 8:06 AM EDT Greater than 3 organism types present. Organisms present in low colony counts are not considered significant. No further work up will be performed. Lio Ruiz MD MICROBIOLOGY - GENERAL ORDERABLE S Final Result [facility] [address] [place] [address] documented in this encounter Visit Diagnoses Diagnosis Alcohol abuse, in remission Nondependent alcohol abuse, in remission Major depressive disorder, recurrent, severe with psychotic symptoms (HCC) documented in this encounter Care Teams Political Science Faculty Member Relationship Specialty Start Date End Date Ha-Jaylyn Saunders MD PCP - Family Medicine 03/01/14 Krysta Wilcox ASSOCIATE SOFTWARE DEVELOPER [address] [place] [address] PCP - General Family Medicine 03/23/25 Irena Rodriguez MD [address] [place] [address] Cancer [place] [address] Physician Hematology and Oncology 12/27/21 Ashtyn Love, RN Registered Nurse 12/27/21 documented as of this encounter
--- OUTSIDE RECORDS SUMMARY | 2025-04-22 00:14 | XMS_ITS | Encounter Summary ---
Author Organization [facility] [address] [place] [address] Care Team Providers Care Veneer Matcher Name Role Phone Ha-Jaylyn Saunders MD Unavailable Irena Rodriguez MD Unavailable Ashtyn Love RN Unavailable [facility] Estela Oglesby MD Primary Care Provider Krysta Wilcox RASPER MACHINE OPERATOR Primary Care Provider Grupo Goncalves RASPER MACHINE OPERATOR Primary Care Provider Krysta Wilcox RASPER MACHINE OPERATOR Primary Care Provider Encounter Details Date Type Department Care Team (Late st Contact Info) Description 03/17/2022 Lab Requisition [address] [phone] Estela Oglesby MD [address] [facility] [place], [place] [phone] Congenital malformation of urinary system, unspecified Social History Tobacco Use Types Packs/Day [...] Description 06/25/2025 9:40 AM EDT Office Visit [facility] [address] [place] [phone] Arnel Causey MD [address] [place] [address] documented as of this encounter Procedures Procedure Name Priority Date/Time Associated Diagnosis Comments URINE CULTURE AND COLONY COUNT Routine 03/17/2022 8:05 AM EDT Congenital malformation of urinary system, unspecified documented in this encounter Results * Urine Culture and [place] Count (03/17/2022 8:05 AM EDT) Culture No Growth at 18-24 hrs. SUSCEPTIBILI TY TESTING 03/18/2022 8:21 AM EDT [facility] Urine specimen (specimen) Urine specimen / Unknown Collection / Unknown 03/17/2022 8:05 AM EDT 03/17/2022 12:48 PM EDT Narrative [facility] - 03/18/2022 8:21 AM EDT < 1,000 colonies/ml or No Growth us Estela Oglesby MD MICROBIOLOGY - GENERAL ORDERA BLES Final Result [facility] [address] [place] [address] documented in this encounter Visit Diagnoses Diagnosis Congenital malformation of urinary system, unspecified documented in this encounter Additional Health Concerns Infection Onset Date Last Indicated Resolved Time PUI COVID 11/19/2022 11/19/2022 11/19/2022 10:5 4 AM EDT PUI COVID 01/23/2025 01/24/2025 01/24/2025 12:4 2 AM EDT documented as of this encounter Care Teams Veneer Matcher Relationship Specialty Start Date End Date Jaylyn Andrews MD PCP - Family Medicine 03/01/14 Estela Oglesby MD [address] [facility] [place] [address] PCP - General Internal Medicine 02/03/22 02/18/23 Krysta Wilcox, RASPER MACHINE OPERATOR [address] [place] [address] PCP - General Family Medicine 09/03/23 11/09/23 Grupo Goncalves NP [address] [place] [address] PCP - General Nurse Practitioner 11/10/23 03/22/25 Krysta Wilcox, RASPER MACHINE OPERATOR [address] [place] [address] PCP - General Family Medicine 03/23/25 Irena Rodriguez MD [address] [place] [address] [place] [address] Physician Hematology and Oncology 12/27/21 Ashtyn Love, RN Registered Nurse 12/27/21 documented as of this encounter
--- OUTSIDE RECORDS SUMMARY | 2025-04-22 00:14 | XMS_ITS | Encounter Summary ---
Author Organization [facility] Address [address] [place] [address] Care Team Providers Care Citizen Participation Specialist Name Role Phone Ha-Jaylyn Saunders MD Unavailable [phone] Irena Rodriguez MD Unavailable Ashtyn Love RN Unavailable Estela Boyle MD Primary Care Provider Krysta Wilcox OPTICS ENGINEER Primary Care Provider [phone] Grupo Goncalves NP Primary Care Provider Krysta Wilcox OPTICS ENGINEER Primary Care Provider Encounter Details Date Type Department Care Team (Late st Contact Info) Description 03/21/2022 Orders Only [facility] [address] [facility], [address] [place] [address] Maureen Mesa NP [address] [place] [address] Social History Tobacco Use Types Packs/Day Years [...] Description 06/25/2025 9:40 AM EDT Office Visit [facility] [address] [place] [phone] Arnel Causey MD [address] [place] [address] documented as of this encounter Procedures Procedure Name Priority Date/Time Associated Diagnosis Comments STRESS TEST WITH MYOCARDIAL PERFUSION Routine 02/21/2021 CARDIAC ECHO COMPLETE Routine 02/19/2021 documented in this encounter Results * Nuclear Medicine Stress Test with SPECT (02/21/2021) Anatomical Region Laterality Modality Heart Other us Maureen Mesa NP CV STRESS ORDERABLES Final Result * Cardiac echo complete (02/19/2021) Anatomical Region Laterality Modality Heart (Echo) Ultrasound us Estela Oglesby MD CV ECHO ORDERABLES Final Resu lt documented in this encounter Visit Diagnoses Not on filedocumented in this encounter Additional Health Concerns Infection Onset Date Last Indicated Resolved Time PUI COVID 11/19/2022 11/19/2022 11/19/2022 10:5 4 AM EDT PUI COVID 01/23/2025 01/24/2025 01/24/2025 12:4 2 AM EDT documented as of this encounter Care Teams Citizen Participation Specialist Relationship Specialty Start Date End Date Ha-Jaylyn Saunders MD PCP - Family Medicine 03/01/14 Estela Oglesby MD [address] [place] [address] PCP - General Internal Medicine 02/03/22 02/18/23 Krysta Wilcox, OPTICS ENGINEER [address] [place] [address] PCP - General Family Medicine 09/03/23 11/09/23 Grupo Goncalves NP [address] [place] [address] PCP - General Nurse Practitioner 11/10/23 03/22/25 Krysta Wilcox NP [address] [place] [address] PCP - General Family Medicine 03/23/25 Irena Rodriguez MD [address] [place] [address] [place] [address] Physician Hematology and Oncology 12/27/21 Ashtyn Love, RN Registered Nurse 12/27/21 documented as of this encounter
--- OUTSIDE RECORDS SUMMARY | 2025-04-22 00:14 | XMS_ITS | Encounter Summary ---
Author Organization [facility] Address [address] [place] [address] Care Team Providers Care Wellness Specialist Name Role Phone Ha-Jaylyn Saunders MD Unavailable [phone] Irena Rodriguez MD Unavailable Ashtyn Love RN Unavailable UnavailKrysta Laurent COMPUTER SYSTEMS ENGINEER Primary Care Provider [phone] Encounter Details Date Type Department Care Team (Late st Contact Info) Description 04/02/2025 Lab Requisition [address] [phone] Pascual Quezada MD [address] [place] [address] Alcohol abuse, in remission; Major depressive disorder, [...] ing 03/17/2025 Do you need help with Housing/Care Home resources? Not on file 03/17/2025 Patient indicated [...] Description 06/25/2025 9:40 AM EDT Office Visit [facility] [address] [place] [phone] [place] [address] [place] [address] documented as of this encounter Procedures Procedure Name Priority Date/Time Associated Diagnosis Comments PROTIME-INR Routine 04/02/2025 6:20 AM EDT Alcohol abuse, in remission Major depressive disorder, recurrent, severe with psychotic symptoms (HCC) documented in this encounter Results * Protime-INR (04/02/2025 6:20 AM EDT) Protime 12.0 9.4 - 12.5 seconds 04/02/2025 10:25 AM EDT [facility] INR 1.03 0.79 - 1.06 04/02/2025 10:25 AM EDT [facility] Blood Venipuncture / Unknown 04/02/2025 6:20 AM EDT 04/02/2025 9:56 AM EDT Narrative [facility] - 04/02/2025 10:25 AM EDT New reference range reflects new method INR Recommendations for Oral Anticoagulant Therapy Populations INR Value Low Intensity OAC Therapy 1.5-2.0 Mod Intensity OAC Therapy 2.0-3.0 High Intensity OAC Therapy 2.5-4.0 us Pascual Quezada MD LAB BLOOD ORDERABLES Final Result Performing Organization Address City/State/[facility] Co de Phone Number [facility] [address] [place] [address] documented in this encounter Visit Diagnoses Diagnosis Alcohol abuse, in remission Nondependent alcohol abuse, in remission Major depressive disorder, recurrent, severe with psychotic symptoms (HCC) documented in this encounter Care Teams Wellness Specialist Relationship Specialty Start Date End Date Ha-Jaylyn Saunders MD PCP - Family Medicine 03/01/14 Krysta Wilcox COMPUTER SYSTEMS ENGINEER [address] [place] [address] PCP - General Family Medicine 03/23/25 Irena Rodriguez MD [address] [place] [address] - Cancer [facility] [place] [address] Physician Hematology and Oncology 12/27/21 Ashtyn Love, RN Registered Nurse 12/27/21 documented as of this encounter
--- OUTSIDE RECORDS SUMMARY | 2025-04-22 00:14 | XMS_ITS | Encounter Summary ---
Author Organization [facility] Address [address] [place] [address] Care Team Providers Care Director Stage Name Role Phone Ha-Jaylyn Saunders MD Unavailable [phone] Irena Rodriguez MD Unavailable Ashtyn Love RN Unavailable UnavailKrysta Laurent ROSE GROWER Primary Care Provider [phone] Encounter Details Date Type Department Care Team (Late st Contact Info) Description 04/02/2025 Lab Requisition [address] [address] Pascual Quezada MD [address] [place] [address] Alcohol abuse, in remission; Major depressive disorder, [...] ing 03/17/2025 Do you need help with Housing/Detention resources? Not on file 03/17/2025 Patient indicated [...] Description 06/25/2025 9:40 AM EDT Office Visit [facility] [address] [place] [phone] [place] [address] [place] [address] documented as of this encounter Procedures Procedure Name Priority Date/Time Associated Diagnosis Comments COMP METABOLIC PANEL W/ LIPASE Routine 04/02/2025 6:20 AM EDT Alcohol abuse, in remission Major depressive disorder, recurrent, severe with psychotic symptoms (HCC) documented in this encounter Results * (ABNORMAL) Comp Metabolic Panel W/ Lipase (04/02/2025 6:20 AM EDT) Sodium 141 136 - 145 mEq/L 04/02/2025 11:00 AM EDT [facility] Potassium 3.8 3.5 - 5.1 mEq/L 04/02/2025 11:00 AM EDT [facility] Chloride 103 98 - 109 mEq/L 04/02/2025 11:00 AM EDT [facility] CO2 26 20 - 31 mEq/L 04/02/2025 11:00 AM EDT [facility] Anion Gap 12 4 - 15 mEq/L 04/02/2025 11:00 AM EDT [facility] Glucose 79 70 - 100 mg/dL 04/02/2025 11:00 AM EDT [facility] Creatinine 0.85 0.50 - 1.00 mg/dL 04/02/2025 11:00 AM T [facility] eGFR (Female) >60 60 - 115 mL/min 04/02/2025 11:00 AM EDT [facility] BUN 7(L) 9 - 23 mg/dL 04/02/2025 11:00 AM EDT [facility] Calcium 9.1 8.3 - 10.6 mg/dL 04/02/2025 11:00 AM EDT [facility] Albumin 4.3 3.2 - 4.8 g/dL 04/02/2025 11:00 AM T [facility] A/G Ratio 1.7 1.0 - 2.3 04/02/2025 11:00 AM EDT [facility] Total Bilirubin 0.7 0.2 - 1.0 mg/dL 04/02/2025 11:00 AM EDT [facility] AST 28 13 - 40 U/L 04/02/2025 11:00 AM EDT [facility] Alkaline Phosphatase 105 46 - 116 IU/L 04/02/2025 11:00 AM EDT [facility] ALT 35 7 - 40 U/L 04/02/2025 11:00 AM EDT [facility] Lipase 45 12 - 53 U/L 04/02/2025 11:00 AM EDT [facility] Total Protein 6.8 5.7 - 8.2 g/dL 04/02/2025 11:00 AM EDT [facility] Blood Venipuncture / Unknown 04/02/2025 6:20 AM EDT 04/02/2025 9:57 AM EDT us Pascual Quezada MD LAB BLOOD ORDERABLES Final Result [facility] [address] [place] [address] documented in this encounter Visit Diagnoses Diagnosis Alcohol abuse, in remission Nondependent alcohol abuse, in remission Major depressive disorder, recurrent, severe with psychotic symptoms (HCC) documented in this encounter Care Teams Director Stage Relationship Specialty Start Date End Date Bonner-Jaylyn Saunders MD PCP - Family Medicine 03/01/14 Krysta Wilcox ROSE GROWER [address] [place] [address] PCP - General Family Medicine 03/23/25 Irena Rodriguez MD [address] [place] [address] - [place] [address] Physician Hematology and Oncology 12/27/21 Ashtyn Love, RN Registered Nurse 12/27/21 documented as of this encounter
--- OUTSIDE RECORDS SUMMARY | 2025-04-22 00:14 | XMS_ITS | Clinical Summary ---
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 Discharge Disposition: Home or Self Care 03/16/2025 Travel 03/12/2025 12:14 AM EDT - 03/12/2025 1:44 AM EDT Emergency [address] [phone] Veronica Narvaez NP Alves, Emily S, PA Peripheral edema (Primary Dx) Discharge Disposition: Home or Self Care 03/11/2025 Travel 02/24/2025 Social Work [facility] [address] [place] [phone] Divya Fields, HOUSEHOLD COOK 02/17/2025 2:16 AM EDT - 02/17/2025 3:59 AM EDT Emergency [address] [phone] Venecia West NP Larock, Alicia, NP Chest pain (Primary Dx); Bilateral lower extremity edema Discharge Disposition: Home or Self Care 02/16/2025 10:40 AM EDT Lab [facility] [address] [facility], [address] [place] [address] Encounter for screening for other viral diseases; Obesity, class 3; Body mass index (BMI) 50.0-59.9, adult (HCC); Mixed hyperlipidemia; Other specified soft tissue disorders; Other forms of dyspnea 02/16/2025 Travel 02/16/2025 Telephone [facility] [address] [place] [phone] Valerie Vieira LICSW 02/16/2025 Orders Only [address] [phone] Krysta Wilcox, PAPER PRODUCTS SUPERVISOR Other specified soft tissue disorders; Other forms of dyspnea 02/16/2025 Orders Only [address] [phone] Krysta Wilcox P, PAPER PRODUCTS SUPERVISOR Other specified soft tissue disorders 02/16/2025 Orders Only [address] [phone] Krysta Wilcox, PAPER PRODUCTS SUPERVISOR Other specified soft tissue disorders 02/16/2025 Orders Only [address] [phone] Krysta Wilcox, PAPER PRODUCTS SUPERVISOR Encounter for screening for other viral diseases 02/16/2025 Orders Only [address] [phone] Krysta Wilcox, PAPER PRODUCTS SUPERVISOR Encounter for screening for other viral diseases 02/16/2025 Orders Only [address] [phone] Krysta Wilcox, PAPER PRODUCTS SUPERVISOR Encounter for screening for other viral diseases 02/16/2025 Orders Only [facility] [address] [phone] Krysta Wilcox NP Encounter for screening for other viral diseases 02/16/2025 Orders Only [address] [phone] Krysta Wilcox NP Encounter for screening for other viral diseases 02/16/2025 Orders Only [address] [phone] Krysta Wilcox, ANDREA Encounter for screening for other viral diseases 01/27/2025 Lab Requisition [address] [phone] Daniel Springer NP Major depressive disorder, recurrent severe without psychotic features (HCC) 01/23/2025 11:27 PM EDT - 01/26/2025 6:27 AM EDT Hospital Encounter [address] [phone] Yaniv Post, Zahida Martínez, Girma Raymond MD Suicidal ideation (Primary Dx) Discharge Disposition: Psychiatric Hospital other [facility] 01/23/2025 Travel from Last 3 Months Immunizations Immunization Administration Dates Next Due MMR 07/31/2007 TDAP 07/31/2007 Family History Medical History Relation Name Comments Breast cancer Sister Relation Name Status Comments Sister Social History Tobacco Use Types Packs/Day Years Used Date Smoking Tobacco: Former Cigarettes Q uit: 12/20/1990 Smokeless Tobacco: Never Tobacco Cessation:Counseling Given: No Alcohol Use Standard Drinks/Week Comments Never 0 (1 standard drink = 0.6 oz pur e alcohol) Housing Stability - SDOH Screener Answer Date Recorded What is your living situation today? Steady hous ing 03/17/2025 Do you need help with Housing/Correction resources? Not on file 03/17/2025 Patient indicated [...] Orientation Straight 03/17/2024 11 :06 AM EDT Last Filed Vital Signs Vital Sign Reading Time Taken Comments Blood Pressure 135/82 04/10/2025 8:43 PM EDT Pulse 85 04/10/2025 8:43 PM EDT Temperature 36.9 C (98.4 F) 04/10/2025 12:37 PM EDT Respiratory Rate 18 04/10/2025 8:43 PM EDT Oxygen Saturation 99% 04/10/2025 8:43 PM EDT Inhaled Oxygen Concentration - - Weight 118 kg (260 lb) 04/09/2025 7:17 AM EDT Height 152.4 cm (5') 04/09/2025 7:17 AM EDT Body Mass Index 50.78 04/09/2025 7:17 AM EDT Plan of Treatment Upcoming Encounters Date Type Department Care Team (Late st Contact Info) Description 06/25/2025 9:40 AM EDT Office Visit [facility] [address] [place] [phone] Arnel Causey MD [address] [place] [address] Health Maintenance Due Date Last Done Comments Hepatitis B Screening [address] CT Colonography 2016 Colonoscopy 2016 Colorectal Cancer Screening 2016 FIT-DNA 2016 FOBT 2016 Sigmoidoscopy 2016 Breast Cancer Screening 03/14/2023 03/13/2022 COVID-19 Vaccine ( season) 2024 Influenza Vaccine (#1) 2025 12/18/2024 Annual Physical 12/09/2025 12/09/2024 Cholesterol Screening 03/30/2030 03/30/2025 , 02/16/2025, 01/27/2025, Additional history exists DTaP,Tdap,and Td Vaccines (3 - Td or Tdap) 12/18/2034 12/18/2024, 07/31/2007 Pneumococcal Vaccines 50+ yrs Completed 12/18/2024 Zoster Standard Vaccine Completed 02/16/2025, 12/18 HIB Vaccines Aged Out No longer eligi ble based on patient's age to complete this topic Hepatitis A Vaccine Aged Out No longe r eligible based on patient's age to complete this topic Procedures Procedure Name Priority Date/Time Associated Diagnosis Comments URINE MICROSCOPIC (SEDIMENT ONLY) STAT 04/10/2025 4:48 AM EDT URINALYSIS, REFLEX TO CULTURE STAT 04/10/2025 4:48 AM EDT URINE CULTURE AND COLONY COUNT STAT 04/10/2025 4:48 AM EDT ED CRITICAL CARE Routine 04/09/2025 3:48 PM EDT TOXICOLOGY SCREEN, URINE (NON FCU) STAT 04/09/2025 2:17 PM EDT TOXICOLOGY SCREEN, URINE STAT 04/09/2025 2:17 PM EDT SALICYLATE LEVEL STAT 04/09/2025 8:41 AM EDT ACETAMINOPHEN LEVEL STAT 04/09/2025 8 :41 AM EDT ETHANOL STAT 04/09/2025 8:41 AM EDT COMPREHENSIVE METABOLIC PANEL STAT 04/09/2025 8:41 AM EDT CBC AND AUTO DIFFERENTIAL STAT 04/09/2025 8:41 AM EDT ECG 12-LEAD STAT 04/08/2025 9:28 AM EDT XR CHEST 2 VW Urgent 04/08/2025 6:46 AM EDT MAGNESIUM STAT 04/07/2025 11:47 PM EDT HCG QUANTITATIVE SERUM STAT 04/07/2025 11:47 PM EDT PROTIME-INR STAT 04/07/2025 11:47 PM EDT TROPONIN I HIGH SENSITIVITY STAT 04/07/2025 11:47 PM EDT LIPASE STAT 04/07/2025 11:47 PM EDT COMPREHENSIVE METABOLIC PANEL STAT 04/07/2025 11:47 PM EDT CBC AND AUTO DIFFERENTIAL STAT 04/07/2025 11:47 PM EDT TROPONIN I HIGH SENSITIVITY STAT 04/07/2025 7:36 PM EDT HCG QUALITATIVE SERUM STAT 04/07/2025 7:36 PM EDT US VAS VENOUS DUPLEX LOWER EXTREMITY BILATERAL STAT 04/07/2025 5:48 PM EDT ECG 12-LEAD STAT 04/07/2025 4:14 PM EDT XR CHEST 2 VW Urgent 04/07/2025 4:11 PM EDT TROPONIN I HIGH SENSITIVITY STAT 04/07/2025 4:06 PM EDT NT-PROBNP STAT 04/07/2025 4:06 PM EDT MAGNESIUM STAT 04/07/2025 4:06 PM EDT LIPASE STAT 04/07/2025 4:06 PM EDT COMPREHENSIVE METABOLIC PANEL STAT 04/07/2025 4:06 PM EDT CBC AND AUTO DIFFERENTIAL STAT 04/07/2025 4:06 PM EDT US VAS VENOUS DUPLEX LOWER EXTREMITY BILATERAL STAT 04/02/2025 10:32 PM EDT PROTIME-INR STAT 04/02/2025 9:43 PM EDT MAGNESIUM STAT 04/02/2025 9:43 PM EDT LIPASE STAT 04/02/2025 9:43 PM EDT COMPREHENSIVE METABOLIC PANEL STAT 04/02/2025 9:43 PM EDT CBC AND AUTO DIFFERENTIAL STAT 04/02/2025 9:43 PM EDT COMP METABOLIC PANEL W/ LIPASE Routine 04/02/2025 6:20 AM EDT Alcohol abuse, in remission Major depressive disorder, recurrent, severe with psychotic symptoms (HCC) PROTIME-INR Routine 04/02/2025 6:20 AM EDT Alcohol abuse, in remission Major depressive disorder, recurrent, severe with psychotic symptoms (HCC) HIV 1/2 AG+AB (4TH GEN) W/ REFLEX Routine 03/30/2025 7:13 AM EDT Alcohol abuse, in remission Major depressive disorder, recurrent, severe with psychotic symptoms (HCC) TSH WITH REFLEX TO FREE T4 Routine 03/30/2025 7:13 AM EDT HEMOGLOBIN A1C Routine 03/30/2025 7:13 AM EDT LIPID PROFILE, REFLEX DIRECT LDL Routine 03/30/2025 7:13 AM EDT Alcohol abuse, in remission Major depressive disorder, recurrent, severe with psychotic symptoms (HCC) URINE CULTURE AND COLONY COUNT Routine 03/28/2025 6:00 AM EDT Alcohol abuse, in remission Major depressive disorder, recurrent, severe with psychotic symptoms (HCC) CBC AND AUTO DIFFERENTIAL Routine 03/26/2025 8:49 AM EDT BASIC METABOLIC PANEL Routine 03/26/2025 8:49 AM EDT CARDIAC ECHO COMPLETE Routine 03/25/2025 1:15 PM EDT US VAS VENOUS DUPLEX LOWER EXTREMITY BILATERAL Urgent 03/25/2025 10:46 AM EDT CBC AND AUTO DIFFERENTIAL Routine 03/25/2025 9:24 AM EDT BASIC METABOLIC PANEL Routine 03/25/2025 9:24 AM EDT RED TOP Routine 03/24/2025 12:26 PM EDT EXTRA TUBES Routine 03/24/2025 12:26 PM EDT CBC AND AUTO DIFFERENTIAL Routine 03/24/2025 12:26 PM EDT PROTIME-INR Routine 03/24/2025 12:26 PM EDT BASIC METABOLIC PANEL Routine 03/24/2025 12:26 PM EDT TROPONIN I HIGH SENSITIVITY STAT 03/24/2025 12:26 PM EDT NM LUNG SCAN PERFUSION PARTICULATE Routine 03/24/2025 10:52 AM EDT OXYGEN VIA NASAL CANNULA (0-6 LPM) Routine 03/24/2025 5:11 AM EDT XR CHEST 2 VW Urgent 03/24/2025 4:17 AM EDT URINALYSIS, REFLEX TO CULTURE STAT 03/24/2025 3:08 AM EDT ECG 12-LEAD STAT 03/24/2025 2:34 AM EDT MAGNESIUM Add-On 03/23/2025 11:48 PM EDT NT-PROBNP STAT 03/23/2025 11:48 PM EDT TROPONIN I HIGH SENSITIVITY STAT 03/23/2025 11:48 PM EDT COMPREHENSIVE METABOLIC PANEL STAT 03/23/2025 11:48 PM EDT CBC AND AUTO DIFFERENTIAL STAT 03/23/2025 11:48 PM EDT OXYGEN VIA NASAL CANNULA (0-6 LPM) STAT 03/23/2025 11:31 PM EDT LAVENDER TOP Routine 03/20/2025 8:10 AM EDT EXTRA TUBES Routine 03/20/2025 8:10 AM EDT MAGNESIUM Routine 03/20/2025 8:10 AM EDT BASIC METABOLIC PANEL Routine 03/20/2025 8:10 AM EDT URINE MICROSCOPIC (NO REFLEX TO URINE CULT) Routine 03/19/2025 10:04 AM EDT URINALYSIS (NO REFLEX TO CULTURE) Routine 03/19/2025 10:04 AM EDT MAGNESIUM Routine 03/19/2025 6:04 AM EDT BASIC METABOLIC PANEL Routine 03/19/2025 6:04 AM EDT XR RIBS BILATERAL 4+ VW W PA CHEST Routine 03/18/2025 3:14 PM EDT LAVENDER TOP Routine 03/18/2025 7:13 AM EDT EXTRA TUBES Routine 03/18/2025 7:13 AM EDT MAGNESIUM Routine 03/18/2025 7:13 AM EDT BASIC METABOLIC PANEL Routine 03/18/2025 7:13 AM EDT LAVENDER TOP Routine 03/17/2025 6:28 AM EDT EXTRA TUBES Routine 03/17/2025 6:28 AM EDT MAGNESIUM Timed 03/17/2025 6:28 AM EDT BASIC METABOLIC PANEL Timed 03/17/2025 6:28 AM EDT RESPIRATORY MULTIPLEX PANEL - SARS/FLU/RSV Routine 03/17/2025 2:10 AM EDT BLOOD CULTURE Routine 03/17/2025 12:31 AM EDT BLOOD CULTURE Routine 03/17/2025 12:25 AM EDT US VAS VENOUS DUPLEX LOWER EXTREMITY BILATERAL STAT 03/16/2025 8:09 PM EDT XR CHEST 2 VW Urgent 03/16/2025 7:28 PM EDT ECG 12-LEAD STAT 03/16/2025 6:52 PM EDT LIGHT BLUE TOP STAT 03/16/2025 2:56 PM EDT D-DIMER QUANTITATIVE STAT 03/16/2025 2:56 PM EDT LAVENDER TOP STAT 03/16/2025 2:55 PM EDT RED TOP STAT 03/16/2025 2:55 PM EDT GREEN PST TOP STAT 03/16/2025 2:55 PM EDT NT-PROBNP STAT 03/16/2025 2:55 PM EDT EXTRA TUBES STAT 03/16/2025 2:55 PM EDT TROPONIN I HIGH SENSITIVITY STAT 03/16/2025 2:55 PM EDT LIPASE STAT 03/16/2025 2:55 PM EDT COMPREHENSIVE METABOLIC PANEL STAT 03/16/2025 2:55 PM EDT CBC AND AUTO DIFFERENTIAL STAT 03/16/2025 2:55 PM EDT XR CHEST 2 VW Urgent 03/12/2025 1:04 AM EDT RED TOP Routine 03/11/2025 7:41 PM EDT EXTRA TUBES Routine 03/11/2025 7:41 PM EDT NT-PROBNP STAT 03/11/2025 7:37 PM EDT LIPASE STAT 03/11/2025 7:37 PM EDT COMPREHENSIVE METABOLIC PANEL STAT 03/11/2025 7:37 PM EDT CBC AND AUTO DIFFERENTIAL STAT 03/11/2025 7:37 PM EDT TROPONIN I HIGH SENSITIVITY STAT 02/17/2025 3:11 AM EDT XR CHEST 1 VW PORTABLE Urgent 02/17/2025 2:52 AM EDT ECG 12-LEAD STAT 02/17/2025 1:37 AM EDT NT-PROBNP STAT 02/16/2025 6:56 PM EDT TROPONIN I HIGH SENSITIVITY STAT 02/16/2025 6:56 PM EDT NT-PROBNP Routine 02/16/2025 10:41 AM EDT Other specified soft tissue disorders Other forms of dyspnea HEPATITIS B SURFACE ANTIBODY Routine 02/16/2025 10:41 AM EDT Encounter for screening for other viral diseases HEPATITIS A ANTIBODY TOTAL Routine 02/16/2025 10:41 AM EDT Encounter for screening for other viral diseases HIV 1/2 AG+AB (4TH GEN) W/ REFLEX Routine 02/16/2025 10:41 AM EDT Encounter for screening for other viral diseases LIPID PANEL Routine 02/16/2025 10:41 AM EDT Mixed hyperlipidemia CBC AND AUTO DIFFERENTIAL Routine 02/16/2025 10:41 AM EDT Obesity, class 3 Body mass index (BMI) 50.0-59.9, adult (HCC) COMPREHENSIVE METABOLIC PANEL Routine 02/16/2025 10:41 AM EDT Obesity, class 3 Body mass index (BMI) 50.0-59.9, adult (HCC) HEPATITIS C AB W/REFLEX TO HCV QUANT NAAT IF POSITIVE Routine 02/16/2025 10:41 AM EDT Encounter for screening for other viral diseases HEPATITIS B CORE ANTIBODY TOTAL Routine 02/16/2025 10:41 AM EDT Encounter for screening for other viral diseases HEPATITIS B SURFACE ANTIGEN Routine 02/16/2025 10:41 AM EDT Encounter for screening for other viral diseases TSH WITH REFLEX TO FREE T4 Routine 01/27/2025 6:15 AM EDT HEMOGLOBIN A1C Routine 01/27/2025 6:15 AM EDT LIPID PROFILE, REFLEX DIRECT LDL Routine 01/27/2025 6:15 AM EDT URINE COMPLETE Routine 01/26/2025 12:40 PM EDT Major depressive disorder, recurrent severe without psychotic features (HCC) URINE CULTURE AND COLONY COUNT Routine 01/26/2025 12:40 PM EDT Major depressive disorder, recurrent severe without psychotic features (HCC) TOXICOLOGY SCREEN, URINE (NON FCU) STAT 01/24/2025 5:01 AM EDT TOXICOLOGY SCREEN, URINE STAT 01/24/2025 5:01 AM EDT XR CHEST 2 VW Urgent 01/24/2025 12:10 AM EDT RESPIRATORY MULTIPLEX PANEL - SARS/FLU/RSV STAT 01/24/2025 12:03 AM EDT LAVENDER TOP STAT 01/23/2025 11:12 PM EDT RED TOP STAT 01/23/2025 11:12 PM EDT GREEN PST TOP STAT 01/23/2025 11:12 PM EDT COMPREHENSIVE METABOLIC PANEL STAT 01/23/2025 11:12 PM EDT CBC AND AUTO DIFFERENTIAL STAT 01/23/2025 11:12 PM EDT HCG QUANTITATIVE SERUM STAT 01/23/2025 11:12 PM EDT SALICYLATE LEVEL STAT 01/23/2025 11:1 2 PM EDT ACETAMINOPHEN LEVEL STAT 01/23/2025 1 1:12 PM EDT ETHANOL STAT 01/23/2025 11:12 PM EDT EXTRA TUBES STAT 01/23/2025 11:12 PM EDT ARLEEN JUDITH DIAGNOSTIC LEFT Routine 03/13/2022 12:07 PM EDT Abnormal mammogram of left breast from Last 3 Months or Most Recently Relevant to Health Maintenance Results * (ABNORMAL) Urine Microscopic (sediment only) (04/10/2025 4:48 AM EDT) WBC 21-30(A) 0 - 2 HPF 04/10/2025 6:15 AM EDT [facility] RBC 3-5(A) 0-2 HPF HPF 04/10/2025 6:15 AM EDT [facility] Squam Epithelial Many(A) Few HPF 04/10/2025 6:15 AM EDT [facility] Mucus Few Few HPF 04/10/2025 6:15 AM EDT [facility] Bacteria Few(A) None Seen HPF 04/10/2025 6:15 AM EDT [facility] Ca Oxalate Crystals Few(A) None Seen HPF 04/10/2025 6:15 AM EDT [facility] Urine Urine specimen obtained by clean catch procedure / Unknown Collection / Unknown 04/10/2025 4:48 AM EDT 04/10/2025 5:41 AM EDT us Toi Mcelroy MD URINE ORDERABLES Final Result [facility] [address] [place] [phone] * (ABNORMAL) Urinalysis, Reflex to Culture (04/10/2025 4:48 AM EDT) Only the most recent of2 resultswithin the time period is included. Color Yellow Colorless, Yellow, Light-Yellow , Dark-Yellow 04/10/2025 5:59 AM EDT [facility] Clarity, UA Turbid(A) Clear 04/10/2025 5:59 AM EDT [facility] Specific [place] 1.026(H) 1.000 - 1.025 04/10/2025 5:59 AM EDT [facility] pH 5.0 5.0 - 8.0 04/10/2025 5:59 AM EDT [facility] Protein Negative Negative, 10 , 20 mg/dL 04/10/2025 5:59 AM EDT [facility] Glucose Normal Normal, 30 , 50 mg/dL 04/10/2025 5:59 AM EDT [facility] Ketones Negative Negative, Trace mg/dL 04/10/2025 5:59 AM EDT [facility] Blood Negative Negative, 0.03 mg/dL 04/10/2025 5:59 AM EDT [facility] Bilirubin UA Negative Negative mg/dL 04/10/2025 5:59 AM EDT [facility] Urobilinogen Normal Normal mg/dL 04/10/2025 5:59 AM EDT [facility] Nitrite Negative Negative 04/10/2025 5:59 AM EDT [facility] Leukocyte Esterase 500(A) Negative, 25 Yoon/uL 04/10/2025 5:59 AM EDT [facility] Urine Urine specimen obtained by clean catch procedure / Unknown Collection / Unknown 04/10/2025 4:48 AM EDT 04/10/2025 5:41 AM EDT [facility] - 04/10/2025 5:59 AM EDT A urine culture is being performed on this specimen due to established reflex criteria us Toi Mcelroy MD URINE ORDERABLES Final Result Performing Organization Address [facility] de Phone Number [facility] [address] [place] [phone] * Urine Culture and [place] Count (04/10/2025 4:48 AM EDT) Only the most recent of3 resultswithin the time period is included. Culture < 10,000 colonies/ml Mixed Gram Positive Organisms SUSCEPTIBIL ITY TESTING 04/11/2025 8:33 AM EDT [facility] Urine Urine specimen obtained by clean catch procedure / Unknown Collection / Unknown 04/10/2025 4:48 AM EDT 04/10/2025 5:59 AM EDT Narrative [facility] - 04/11/2025 8:33 AM EDT Organisms present in low colony counts are not considered significant. No further work up will be performed. us Toi Mcelory MD MICROBIOLOGY - GENERAL ORDERABLE S Final Result Performing Organization Address [facility] Phone Number [facility] [address] [place] [phone] * Critical Care (04/09/2025 3:48 PM EDT) Narrative Pascual Reyez MD - 04/09/2025 3:48 PM EDT Pascual Reyez MD 04/09/2025 3:48 PM Critical Care Performed by: Pascual Reyez MD Authorized by: Pascual Reyez MD Critical Care Provider Statement: Critical care time (minutes): 30 Additional Notes and Comments: 30 minutes, excluding billable procedures. The high probability of sudden, clinically significant, or life-threatening deterioration required my full and direct attention, intervention and personal management while the patient was critical. I provided critical care services including: Interpreting diagnostic studies; Medication orders and management; Vital sign assessment monitoring and review; Re-evaluation; Obtaining additional history from family / physician / EMS; Documentation time; Old chart review; Order Packer Or Packager collaboration on finding and tx options; Chart data review. The aggregate critical time was 30 minutes in direct care for this patient either at the bedside or elsewhere in the Emergency Department. This time is in addition to time spent performing other reported procedures. us Pascual Reyez MD PROCEDURE/MINOR SURGICAL OR DERABLES Final Result * Toxicology screen, urine (04/09/2025 2:17 PM EDT) Only the most recent of2 resultswithin the time period is included. Amphetamine Qualitative, Ur None Detected None Detected 04/09/2025 3:24 PM EDT [facility] Barbiturates Qualitative, Ur None Detected None Detected 04/09/2025 3:24 PM EDT [facility] Benzodiazepines Qualitative, Ur None Detected None Detected 04/09/2025 3:24 PM EDT [facility] Methadone Qualitative, Ur None Detected None Detected 04/09/2025 3:24 PM EDT [facility] Opiates Qualitative, Ur None Detected None Detected 04/09/2025 3:24 PM EDT [facility] Cannabinoids Qualitative, Ur None Detected None Detected 04/09/2025 3:24 PM EDT [facility] Cocaine Qualitative, Ur None Detected None Detected 04/09/2025 3:24 PM EDT [facility] Oxycodone Qualitative Urine None Detected None Detected 04/09/2025 3:24 PM EDT [facility] Buprenorphine Qualitative Urine None Detected None Detected 04/09/2025 3:24 PM EDT [facility] Fentanyl Qualitative, Ur None Detected None Detected 04/09/2025 3:24 PM EDT [facility] Creatinine, Urine 81.0 20.0 - 400.0 mg/dL 04/09/2025 3:24 PM EDT [facility] Urine Collection / Unknown 04/09/2025 2:17 PM EDT 04/09/2025 2:30 PM EDT Narrative [facility] - 04/09/2025 3:24 PM EDT This urine immunoassay drug method is for medical SCREENING only and should not be used for non-medical (employment,legal) purposes. The test result(s) may be affected by dietary and over the counter medications. Negative cut-offs for these tests are set to detect DRUG ABUSE. Therapeutic levels of these drugs may not be detected. (The negative cut-offs for the drug classes are: Cocaine, Methadone, Opiates 300 ng/ml; Barbituates, Benzodiazepines 200 ng/ml; Amphetamines 1000 ng/ml; Cannabinoids 50 ng/ml; Buprenorphine 5 ng/ml; Oxycodone 100 ng/ml; Fentanyl 1 ng/ml). As this is a screening methodology, any positive results are UNCONFIRMED. Confirmation of positive results may be requested from the laboratory within 5 days. All test results should be interpreted in context of the patient's clinical condition. us Pascual Reyez MD URINE ORDERABLES Final Resu lt [facility] [address] [place] [address] * (ABNORMAL) CBC and Auto Differential (04/09/2025 8:41 AM EDT) Only the most recent of12 resultswithin the time period is included. WBC 9.1 4.8 - 11.2 10*3/ L 04/09/2025 9:43 AM EDT [facility] RBC 4.41 3.60 - 5.40 10*6/ L 04/09/2025 9:43 AM EDT [facility] HGB 12.5 12.0 - 15.8 g/dL 04/09/2025 9:43 AM EDT [facility] HCT 37.9 36.0 - 48.0 % 04/09/2025 9:43 AM EDT [facility] MCV 85.9 82.0 - 98.0 fL 04/09/2025 9:43 AM EDT [facility] MCH 28.3 27.0 - 35.0 pg 04/09/2025 9:43 AM EDT [facility] MCHC 33.0 32.0 - 37.0 g/dL 04/09/2025 9:43 AM EDT [facility] RDW 15.1(H) 12.0 - 15.0 % 04/09/2025 9:43 AM EDT [facility] PLT 210 150 - 400 10*3/ L 04/09/2025 9:43 AM EDT [facility] Comment:This is an appended report. These results have been appended to a previously preliminary verified report. MPV 11.5 7.0 - 14.0 fL 04/09/2025 9:43 AM EDT [facility] Neut % 71.6 45.0 - 85.0 % 04/09/2025 9:43 AM EDT [facility] Immature Granulocytes % 0.4 0 - 5.0 % 04/09/2025 9:43 AM EDT [facility] Lymph % 18.4 15.0 - 45.0 % 04/09/2025 9:43 AM EDT [facility] [place] % 6.3 0.0 - 12.0 % 04/09/2025 9:43 AM EDT [facility] Eos % 2.9 0.0 - 7.0 % 04/09/2025 9:43 AM EDT [facility] Baso % 0.4 0.0 - 3.0 % 04/09/2025 9:43 AM EDT [facility] NRBC% 0 0 /100 WBC /100 WBC 04/09/2025 9:43 AM EDT [facility] Neut # 6.5 2.2 - 9.5 10*3/ L 04/09/2025 9:43 AM EDT [facility] Immature Granulocytes Absolute 0.04 0.00 - 0.56 10*3/ L 04/09/2025 9:43 AM EDT [facility] Lym # 1.7 0.7 - 5.0 10*3/ L 04/09/2025 9:43 AM EDT [facility] [place] # 0.6 0.0 - 1.3 10*3/ L 04/09/2025 9:43 AM EDT [facility] Eos # 0.3 0.0 - 0.4 10*3/ L 04/09/2025 9:43 AM EDT [facility] Baso # 0.0 0.0 - 0.3 10*3/ L 04/09/2025 9:43 AM EDT [facility] Blood Structure of part of left upper limb / Unknown Venipuncture / Unknown 04/09/2025 8:41 AM EDT 04/09/2025 8:44 AM EDT Narrative [facility] - 04/09/2025 9:43 AM EDT Checked by review of manley smear Pascual Reyez MD LAB BLOOD ORDERABLES Final Result Performing Organization Address [facility] de Phone Number [facility] [address] [place] [phone] * Ethanol (04/09/2025 8:41 AM EDT) Only the most recent of2 resultswithin the time period is included. Ethanol Lvl <3 <10 mg/dL 04/09/2025 9:25 AM EDT [facility] Blood Structure of part of left upper limb / Unknown Venipuncture / Unknown 04/09/2025 8:41 AM EDT 04/09/2025 8:44 AM EDT Pascual Reyez MD LAB BLOOD ORDERABLES Final Result Performing Organization Address [facility] de Phone Number [facility] [address] [place] [address] [phone] * (ABNORMAL) Acetaminophen level (04/09/2025 8:41 AM EDT) Only the most recent of2 resultswithin the time period is included. Acetaminophen Level <2(L) 10 - 20 ug/mL 04/09/2025 9:25 AM EDT [facility] Blood Structure of part of left upper limb / Unknown Venipuncture / Unknown 04/09/2025 8:41 AM EDT 04/09/2025 8:44 AM EDT Pascual Reyez MD LAB BLOOD ORDERABLES Final Result Performing Organization Address [facility] de Phone Number [facility] [address] [place] [phone] * Salicylate level (04/09/2025 8:41 AM EDT) Only the most recent of2 resultswithin the time period is included. Salicylate 5.0 <30.0 mg/dL 04/09/2025 9:25 AM EDT [facility] Blood Structure of part of left upper limb / Unknown Venipuncture / Unknown 04/09/2025 8:41 AM EDT 04/09/2025 8:44 AM EDT us Pascual Reyez MD LAB BLOOD ORDERABLES Final Result [facility] [address] [place] [address] [phone] * (ABNORMAL) Comprehensive metabolic panel (04/09/2025 8:41 AM EDT) Only the most recent of9 resultswithin the time period is included. Sodium 138 136 - 145 mEq/L 04/09/2025 9:25 AM EDT [facility] Potassium 3.8 3.5 - 5.1 mEq/L 04/09/2025 9:25 AM EDT [facility] Chloride 101 98 - 109 mEq/L 04/09/2025 9:25 AM EDT [facility] CO2 28 20 - 31 mEq/L 04/09/2025 9:25 AM EDT [facility] Anion Gap 9 4 - 15 mEq/L 04/09/2025 9:25 AM EDT [facility] Glucose 109(H) 70 - 100 mg/dL 04/09/2025 9:25 AM EDT [facility] Creatinine 0.95 0.50 - 1.00 mg/dL 04/09/2025 9:25 AM EDT [facility] eGFR (Female) >60 60 - 115 mL/min 04/09/2025 9:25 AM EDT [facility] BUN 15 9 - 23 mg/dL 04/09/2025 9:25 AM EDT [facility] Calcium 9.2 8.3 - 10.6 mg/dL 04/09/2025 9:25 AM EDT [facility] Total Protein 6.3 5.7 - 8.2 g/dL 04/09/2025 9:25 AM EDT [facility] Albumin 4.2 3.2 - 4.8 g/dL 04/09/2025 9:25 AM EDT [facility] A/G Ratio 2.0 1.0 - 2.3 04/09/2025 9:25 AM EDT [facility] Total Bilirubin 1.9(H) 0.2 - 1.0 mg/dL 04/09/2025 9:25 AM EDT [facility] AST 47(H) 13 - 40 U/L 04/09/2025 9:25 AM EDT [facility] Alkaline Phosphatase 125(H) 46 - 116 IU/L 04/09/2025 9:25 AM EDT [facility] ALT 34 7 - 40 U/L 04/09/2025 9:25 AM EDT [facility] Blood Structure of part of left upper limb / Unknown Venipuncture / Unknown 04/09/2025 8:41 AM EDT 04/09/2025 8:44 AM EDT Pascual Reyez MD LAB BLOOD ORDERABLES Final Result [facility] [address] [place] [address] [phone] * ECG 12-LEAD (04/08/2025 9:28 AM EDT) Only the most recent of5 resultswithin the time period is included. Narrative Deandra Read MD - 04/08/2025 9:28 AM EDT Deandra Read MD 04/08/2025 9:29 AM EKG electrocardiogram Date/Time: 04/08/2025 9:28 AM Performed by: Deandra Read MD Authorized by: Triage Protocol EmergencyMD Measurements: BPM: 82 Findings: Rate: normal Rhythm: Sinus rhythm Normal intervals noted Conduction: normal ST Segments: normal T Waves: normal Clinical impression: normal ECG Interpreted by ED physician Comparison to Previous ECG: Comparison from 04/07/2025 similar to previous ECG Triage Protocol Emergency ECG ORDERABLES Fin al Result * X-ray chest 2 views (04/08/2025 6:46 AM EDT) Only the most recent of6 resultswithin the time period is included. Anatomical Region Laterality Modality Chest, Ortho Chest Digital Radio graphy 04/08/2025 9:26 AM EDT Impressions 04/08/2025 9:27 AM EDT IMPRESSION: 1. No acute intrathoracic pathology. RS: [id number] Narrative 04/08/2025 9:27 AM EDT HISTORY: sob TECHNIQUE: Frontal and lateral views of the chest. COMPARISON: 04/07/2025 FINDINGS: Lines/tubes: None. Lungs: The lungs are well inflated and clear. There is no evidence of pneumonia or pulmonary edema. Pleura: There is no pleural effusion or pneumothorax. Heart and mediastinum: The heart and the mediastinum are normal. Bones: No acute abnormality. Procedure Note Yaniv Gordon MD - 04/08/2025 HISTORY: sob TECHNIQUE: Frontal and lateral views of the chest. COMPARISON: 04/07/2025 FINDINGS: Lines/tubes: None. Lungs: The lungs are well inflated and clear. There is no evidence ofpneumonia or pulmonary edema. Pleura: There is no pleural effusion or pneumothorax. Heart and mediastinum: The heart and the mediastinum are normal. Bones: No acute abnormality. IMPRESSION: 1. No acute intrathoracic pathology. RS: [id number] us Triage Protocol Emergency MD IMG DIAGNOSTIC IMAG ING ORDERABLES Final Result * Troponin I High Sensitivity (04/07/2025 11:47 PM EDT) Only the most recent of8 resultswithin the time period is included. Troponin I High Sensitivity 3 0 - 34 pg/mL 04/08/2025 12:34 AM EDT [facility] Blood Structure of part of left upper limb / Unknown Venipuncture / Unknown 04/07/2025 11:47 PM EDT 04/08/2025 12:08 AM EDT Narrative [facility] - 04/08/2025 12:34 AM EDT Definite Rule Out 0 Hour: <3 pg/mL Definite Rule In 0 Hour: >=120 pg/mL Low Risk: <10 pg/mL OR Change of <20 at 1 Hour for patients below the reference range Moderate Risk: Change of <15 at 1 Hour if 0 Hour Result was as below: Female 34-115 pg/mL Male 53-115 pg/mL High Risk: >115 OR Change of >=15 at 1 hour from 0 hour result. Correlate with ECG, HEART Score, and clinical findings. us Triage Protocol Emergency MD LAB BLOOD ORDERABLE S Final Result Performing Organization Address [facility] de Phone Number [facility] [address] [place] [address] * Protime-INR (04/07/2025 11:47 PM EDT) Only the most recent of4 resultswithin the time period is included. Protime 12.1 9.4 - 12.5 seconds 04/08/2025 12:52 AM EDT [facility] INR 1.04 0.79 - 1.06 04/08/2025 12:52 AM EDT [facility] Blood Structure of part of left upper limb / Unknown Venipuncture / Unknown 04/07/2025 11:47 PM EDT 04/08/2025 12:09 AM EDT Narrative [facility] - 04/08/2025 12:52 AM EDT New reference range reflects new method INR Recommendations for Oral Anticoagulant Therapy Populations INR Value Low Intensity OAC Therapy 1.5-2.0 Mod Intensity OAC Therapy 2.0-3.0 High Intensity OAC Therapy 2.5-4.0 us Triage Protocol Emergency MD LAB BLOOD ORDERABLE S Final Result Performing Organization Address [facility] Co de Phone Number [facility] [address] [place] [address] * hCG, quantitative, (04/07/2025 11:47 PM EDT) Only the most recent of2 resultswithin the time period is included. Beta-hCG, Total 3.4 <4.2 mIU/ml 04/08/2025 12:38 AM EDT [facility] Blood Structure of part of left upper limb / Unknown Venipuncture / Unknown 04/07/2025 11:47 PM EDT 04/08/2025 12:08 AM EDT Narrative [facility] - 04/08/2025 12:38 AM EDT Reference Ranges: Non < 4.2 mIU/mL Indeterminante 4.2-25 mIU/mL Approximate Last Menstrual Period: 0.2-1 Week 5-50 mIU/mL 1-2 Weeks 50-500 mIU/mL 2-3 Weeks 100-5,000 mIU/mL 3-4 Weeks 500-10,000 mIU/mL 4-5 Weeks 1,000-50,000 mIU/mL 5-6 Weeks 10,000-100,000 mIU/mL 6-8 Weeks 15,000-200,000 mIU/mL 2-3 Months 10,000-100,000 mIU/mL us Triage Protocol Emergency MD LAB BLOOD ORDERABLE S Final Result Performing Organization Address City/[facility] Co de Phone Number [facility] [address] [place] [phone] * Magnesium (04/07/2025 11:47 PM EDT) Only the most recent of8 resultswithin the time period is included. Magnesium 1.9 1.6 - 2.6 mg/dL 04/08/2025 12:38 AM EDT [facility] Blood Structure of part of left upper limb / Unknown Venipuncture / Unknown 04/07/2025 11:47 PM EDT 04/08/2025 12:08 AM EDT us Triage Protocol Emergency MD LAB BLOOD ORDERABLE S Final Result Performing Organization Address City/[facility] Co de Phone Number [facility] [address] [place] [address] [phone] * Lipase (04/07/2025 11:47 PM EDT) Only the most recent of5 resultswithin the time period is included. Lipase 32 12 - 53 U/L 04/08/2025 12:38 AM EDT [facility] Blood Structure of part of left upper limb / Unknown Venipuncture / Unknown 04/07/2025 11:47 PM EDT 04/08/2025 12:08 AM EDT us Triage Protocol Emergency MD LAB BLOOD ORDERABLE S Final Result Performing Organization Address [facility] Co de Phone Number [facility] [address] [place] [phone] * hCG, serum, qualitative (04/07/2025 7:36 PM EDT) hCG Qual Negative Negative 04/07/2025 8:01 PM EDT [facility] Blood Venipuncture / Unknown 04/07/2025 7:36 PM EDT 04/07/2025 7:36 PM EDT us Danyel Naik MD LAB BLOOD ORDERABLES Final Resu lt Performing Organization Address City/[facility] Co de Phone Number [facility] [address] [place] [address] [phone] * US VAS venous duplex lower extremity bilateral (04/07/2025 5:48 PM EDT) Only the most recent of4 resultswithin the time period is included. Anatomical Region Laterality Modality Vascular, Leg Ultrasound 04/07/2025 5:52 PM EDT Impressions 04/07/2025 5:56 PM EDT IMPRESSION: No evidence of acute deep venous thrombosis of the right or left lower extremity. A follow-up exam is suggested if symptoms persist. RS: [id number] Narrative 04/07/2025 5:56 PM EDT BILATERAL LEG VENOUS ULTRASOUND, 04/07/2025 5:48 PM TECHNIQUE: Real-time ultrasound was performed utilizing spectral and color Doppler with compression and augmentation techniques. Flow Doppler wave form tracings are obtained. HISTORY: Bilateral lower extremity swelling. COMPARISON: 04/02/2025. FINDINGS: The bilateral common femoral, superficial femoral, profunda and popliteal veins are normally compressible with normal color flow. Included calf veins appear patent. Procedure Note Alka Cr DO - 04/07/2025 BILATERAL LEG VENOUS ULTRASOUND, 04/07/2025 5:48 PM TECHNIQUE: Real-time ultrasound was performed utilizing spectral andcolor Doppler with compression and augmentation techniques. Flow Dopplerwave form tracings are obtained. HISTORY: Bilateral lower extremity swelling. COMPARISON: 04/02/2025. FINDINGS: The bilateral common femoral, superficial femoral, profunda and poplitealveins are normally compressible with normal color flow. Included calf veins appear patent. IMPRESSION: No evidence of acute deep venous thrombosis of the right or left lowerextremity. A follow-up exam is suggested if symptoms persist. RS: [id number] us Danyel Naik MD CV VASCULAR ORDERABLES Final Re sult * (ABNORMAL) NT-PROBNP (04/07/2025 4:06 PM EDT) Only the most recent of6 resultswithin the time period is included. NT-proBNP 273(H) <125 pg/mL 04/07/2025 4:31 PM EDT [facility] Blood Venipuncture / Unknown 04/07/2025 4:06 PM EDT 04/07/2025 4:07 PM EDT Narrative [facility] - 04/07/2025 4:31 PM EDT PLEASE NOTE NEW DIAGNOSTIC VALUES INTERPRETIVE COMMENTS Age < 50 NT- ProBNP >450 pg/mL. CHF LIKELY Age 50-75 NT- ProBNP >900 pg/mL. CHF LIKELY Age > 75 NT- ProBNP >1800 pg/mL. CHF LIKELY Rule out decision limit for NT-proBNP for cardiogenic acute dyspnea in all ages in ED and inpatient cohorts is <300 pg/mL us Danyel Naik MD LAB BLOOD ORDERABLES Final Resu lt [facility] [address] [place] [address] * (ABNORMAL) Comp Metabolic Panel W/ Lipase (04/02/2025 6:20 AM EDT) Sodium 141 136 - 145 mEq/L 04/02/2025 11:00 AM EDT [facility] Potassium 3.8 3.5 - 5.1 mEq/L 04/02/2025 11:00 AM EDT [facility] Chloride 103 98 - 109 mEq/L 04/02/2025 11:00 AM EDT [facility] CO2 26 20 - 31 mEq/L 04/02/2025 11:00 AM EDT [facility] Anion Gap 12 4 - 15 mEq/L 04/02/2025 11:00 AM EDT [facility] Glucose 79 70 - 100 mg/dL 04/02/2025 11:00 AM EDT [facility] Creatinine 0.85 0.50 - 1.00 mg/dL 04/02/2025 11:00 AM EDT [facility] eGFR (Female) >60 60 - 115 mL/min 04/02/2025 11:00 AM EDT [facility] BUN 7(L) 9 - 23 mg/dL 04/02/2025 11:00 AM EDT [facility] Calcium 9.1 8.3 - 10.6 mg/dL 04/02/2025 11:00 AM T [facility] Albumin 4.3 3.2 - 4.8 g/dL 04/02/2025 11:00 AM T [facility] A/G Ratio 1.7 1.0 - 2.3 04/02/2025 11:00 AM EDT [facility] Total Bilirubin 0.7 0.2 - 1.0 mg/dL 04/02/2025 11:00 AM EDT [facility] AST 28 13 - 40 U/L 04/02/2025 11:00 AM EDT [facility] Alkaline Phosphatase 105 46 - 116 IU/L 04/02/2025 11:00 AM EDT [facility] ALT 35 7 - 40 U/L 04/02/2025 11:00 AM T [facility] Lipase 45 12 - 53 U/L 04/02/2025 11:00 AM EDT [facility] Total Protein 6.8 5.7 - 8.2 g/dL 04/02/2025 11:00 AM EDT [facility] Blood Venipuncture / Unknown 04/02/2025 6:20 AM EDT 04/02/2025 9:57 AM EDT Pascual Quezada MD LAB BLOOD ORDERABLES Final Result Performing Organization Address City/[facility] Co de Phone Number [facility] [address] [place] [address] * HIV 1/2 AG+AB (4th Gen) w/Reflex (03/30/2025 7:13 AM EDT) Only the most recent of2 resultswithin the time period is included. HIV 1-2 AG/AB (4th Gen) Nonreactive Nonreactive 03/30/2025 10:55 AM EDT [facility] Blood Venipuncture / Unknown 03/30/2025 7:13 AM EDT 03/30/2025 9:40 AM EDT Daniel Springer NP LAB BLOOD ORDERABLES Final R esult Performing Organization Address [facility] Co de Phone Number [facility] [address] [place] [address] [phone] * (ABNORMAL) Lipid profile, reflex direct LDL (03/30/2025 7:13 AM EDT) Only the most recent of2 resultswithin the time period is included. Cholesterol 119 <200 mg/dL 03/30/2025 10:28 AM EDT [facility] Triglycerides 88 <150 mg/dL 03/30/2025 10:28 AM EDT [facility] HDL 36.4(L) >=60.0 mg/dL 03/30/2025 10:28 AM EDT [facility] LDL Calculated 65 0 - 100 mg/dL 03/30/2025 10:28 AM EDT [facility] Cardiac Risk Factor 3.3 0.0 - 4.4 03/30/2025 10:28 AM EDT [facility] Blood Venipuncture / Unknown 03/30/2025 7:13 AM EDT 03/30/2025 9:40 AM EDT Narrative [facility] - 03/30/2025 10:28 AM EDT Cardiac Risk Factor: Males Females 2x Average Risk 9.6 7.1 3x Average Risk 23.4 11.0 [facility] LAB BLOOD ORDERABLES Final R esult Performing Organization Address [facility] de Phone Number [facility] [address] [place] [address] [phone] * TSH with reflex to Free T4 (03/30/2025 7:13 AM EDT) Only the most recent of2 resultswithin the time period is included. TSH 1.976 0.550 - 4.780 uIU/mL 03/30/2025 10:29 AM EDT [facility] Blood Venipuncture / Unknown 03/30/2025 7:13 AM EDT 03/30/2025 9:40 AM EDT Narrative [facility] - 03/30/2025 10:29 AM EDT NOTE: Effective 10/28/24, the reference [...] 0.480-4.170 uIU/mL 21 Years +: 0.550-4.780 uIU/mL [facility] LAB BLOOD ORDERABLES Final R esult Performing Organization Address City/[facility] Co de Phone Number [facility] [address] [place] [address] [phone] * Hemoglobin A1c (03/30/2025 7:13 AM EDT) Only the most recent of2 resultswithin the time period is included. Hemoglobin A1C 5.3 4.0 - 6.0 % 03/30/2025 10:50 AM EDT [facility] Estimated Average Glucose eAG 105.4 85.0 - 126.0 mg/dL 03/30/2025 10:50 AM EDT [facility] Blood 03/30/2025 7:13 AM EDT 03/30/2025 9:40 AM EDT [facility] LAB BLOOD ORDERABLES Final R esult [facility] [address] [place] [address] [phone] * (ABNORMAL) Basic metabolic panel (03/26/2025 8:49 AM EDT) Only the most recent of7 resultswithin the time period is included. Pathologist [facility] Sodium 135(L) 136 - 145 mEq/L 03/26/2025 9:24 AM EDT [facility] Potassium 3.5 3.5 - 5.1 mEq/L 03/26/2025 9:24 AM EDT [facility] Chloride 100 98 - 109 mEq/L 03/26/2025 9:24 AM EDT [facility] CO2 28 20 - 31 mEq/L 03/26/2025 9:24 AM EDT [facility] Anion Gap 7 4 - 15 mEq/L 03/26/2025 9:24 AM EDT [facility] Glucose 116(H) 70 - 100 mg/dL 03/26/2025 9:24 AM EDT [facility] Creatinine 0.97 0.50 - 1.00 mg/dL 03/26/2025 9:24 AM EDT [facility] eGFR (Female) >60 60 - 115 mL/min 03/26/2025 9:24 AM EDT [facility] BUN 12 9 - 23 mg/dL 03/26/2025 9:24 AM EDT [facility] Calcium 9.2 8.3 - 10.6 mg/dL 03/26/2025 9:24 AM EDT [facility] Blood Structure of part of left upper limb / Unknown Venipuncture / Unknown 03/26/2025 8:49 AM EDT 03/26/2025 9:01 AM EDT us Miriam Bunch MD LAB BLOOD ORDERABLES Final Res ult [facility] [address] [place] [address] [phone] * (ABNORMAL) CARDIAC ECHO COMPLETE (03/25/2025 1:15 PM EDT) IVS 1.21(A) 0.6 - 1.1 cm [facility] LVIDD 4.52 3.5 - 6.0 cm [facility] LVIDS 2.39 2.1 - 4.0 cm [facility] LVOT Diam 1.95 cm [facility] PW 0.63 0.6 - 1.1 cm [facility] LVOT Pk Grad 7.90 mmHg [facility] LVOT Pk Lisandro 1.41 m/s [facility] RV AP4 Mid 2.05 cm [facility] RV AP4 Base 3.28 cm [facility] RV S' Lisandro 0.20 m/s [facility] LA Size 3.37 cm [facility] LA Volume 24.99 mL [facility] RA Area 8.96 cm2 [facility] AV Pk Grad 18.22 mmHg [facility] AV Pk Lisandro 2.13 m/s [facility] MV Pk A Lisandro 1.07 m/s [facility] MV Decel Time 213.78 msec [facility] MV Pk E Lisandro 0.92 m/s [facility] E/E' Ratio 7.67 [facility] Average TDI e' 0.12 m/s [facility] Lateral TDI e' 0.13 m/s [facility] Medial TDI e' 0.11 m/s [facility] PV Pk Grad 9.53 mmHg [facility] PV pk lisandro 1.54 m/s [facility] TR Pk Grad 30.36 mmHg [facility] TR max lisandro - rest 2.76 m/s [facility] Prox Asc Aorta 2.89 cm [facility] Sinus Diameter 2.94 cm [facility] IVC Proximal 1.54 cm [facility] Patient Height 60 [facility] FS 47.12(A) 28 - 44 % [facility] TDI e' 0.12 m/s [facility] E/A Ratio 0.86 [facility] LA Vol Ind 11.68 mL/m2 [facility] Velocity Ratio (DI) 0.66 [facility] Sinus Diameter - Index 1.37 cm/m2 [facility] Prox Asc Aorta - Index 1.35 cm/m2 [facility] Sinus Area to Height Ratio 4.45 cm2/m [facility] Prox Asc Aorta to Height Ratio 4.30 cm2/m [facility] Lateral TDI e' - null value 0 m/s [facility] Medial TDI e' - null value 0 m/s [facility] Septal TDI e' - null value 0 m/s [facility] Average TDI e' - null value 0 m/s [facility] LVOT Area 2.98 cm2 [facility] BSA 2.14 m2 [facility] Est. RAP 3.00 mmHg [facility] PASP 33.00 mmHg [facility] Anatomical Region Laterality Modality Heart (Echo) Ultrasound Narrative 03/25/2025 2:05 PM EDT Left Ventricle: Normal cavity size. Normal (60-65%) ejection fraction. Mild concentric left ventricular hypertrophy noted. Tricuspid Valve: Normal tricuspid valve structure. Trace regurgitation noted. Estimated pulmonary artery pressure is normal. No significant change when compared to prior study. Left Ventricle Normal cavity size. Normal (60-65%) ejection fraction. Mild concentric left ventricular hypertrophy noted. No regional wall motion abnormalities noted. Abnormal diastolic function. Right Ventricle Normal cavity size and systolic function. Left Atrium Normal cavity size. No atrial septal defect or shunt flow is demonstrated by color flow Doppler. Right Atrium Normal cavity size. IVC/SVC Size and degree of collapse consistent with normal estimated right atrial pressure (3 mm Hg). Mitral Valve Normal valve structure. No regurgitation noted. No stenosis noted. Tricuspid Valve Normal tricuspid valve structure. Trace regurgitation noted. Estimated pulmonary artery pressure is normal. No stenosis noted. Aortic Valve The valve appears trileaflet and has focal thickening. No regurgitation noted. No stenosis noted. Pulmonic Valve Normal valve structure. Trace regurgitation noted. No stenosis noted. Pericardium No pericardial effusion. Aorta Normal aortic root and proximal ascending aorta size. General Study Information Technologist-entered indication(s): SOB, Pt verbally abusive to obgyn hospitalist physician. Best obtaininable images. Image quality: Fair. Cardiac rhythm observed: Sinus tachycardia. Previous study date: 11/19/2022 Wall Scoring Resting Score Index: 1.00 The left ventricular wall motion is normal. Silver Lopez MD CV ECHO ORDERABLES Final Resul t * Red Top (03/24/2025 12:26 PM EDT) Only the most recent of4 resultswithin the time period is included. Extra Tube Auto resulted. 03/24/2025 4:26 PM EDT [facility] Comment:Hold for add-ons. Blood 03/24/2025 12:2 6 PM EDT 03/24/2025 12:55 PM EDT Ruben Mays MD LAB BLOOD ORDERABLES Final Resul t [facility] [address] [place] [phone] * NM lung perfusion only (03/24/2025 10:52 AM EDT) Anatomical Region Laterality Modality Chest Nuclear Medicine 03/24/2025 11:4 3 AM EDT Impressions 03/24/2025 11:43 AM EDT IMPRESSION: Low probability of pulmonary embolus. RS: [id number] Narrative 03/24/2025 11:43 AM EDT CLINICAL INFORMATION: Pulmonary embolism (PE) suspected, positive D-dimer COMPARISON: Most recent prior examination PROCEDURE: NM LUNG SCAN PERFUSION ONLY TECHNIQUE: 4.4 mCi of Tc-99m MAA was injected intravenously with the patient supine. Then images over the lungs were obtained in the 8 standard projections. FINDINGS: There is normal perfusion throughout both lungs with no segmental perfusion defects. Procedure Note Pascual Cohn MD - 03/24/2025 CLINICAL INFORMATION: Pulmonary embolism (PE) suspected, positive D-dimer COMPARISON: Most recent prior examination PROCEDURE: NM LUNG SCAN PERFUSION ONLY TECHNIQUE: 4.4 mCi of Tc-99m MAA was injected intravenously with the patient supine.Then images over the lungs were obtained in the 8 standard projections. FINDINGS: There is normal perfusion throughout both lungs with no segmentalperfusion defects. IMPRESSION: Low probability of pulmonary embolus. RS: [id number] Miriam Bunch MD IMG NM ORDERABLES Final Result * Lavender Top (03/20/2025 8:10 AM EDT) Only the most recent of5 resultswithin the time period is included. Extra Tube Auto resulted. 03/20/2025 12:11 PM EDT [facility] Comment:Hold for add-ons. Blood Venipuncture / Unknown 03/20/2025 8:10 AM EDT 03/20/2025 8:42 AM EDT Cesia Anguiano MD LAB BLOOD ORDERABLES Final Resul t Performing Organization Address [facility] de Phone Number [facility] [address] [place] [phone] * (ABNORMAL) Urine Microscopic (sediment only) (03/19/2025 10:04 AM EDT) WBC 3-5(A) 0 - 2 HPF 03/19/2025 11:36 AM EDT [facility] RBC 3-5(A) 0-2 HPF HPF 03/19/2025 11:36 AM EDT [facility] Squam Epithelial Few Few HPF 03/19/2025 11:36 AM EDT [facility] Mucus Few Few HPF 03/19/2025 11:36 AM EDT [facility] Bacteria Few(A) None Seen HPF 03/19/2025 11:36 AM EDT [facility] Urine Urine specimen obtained by clean catch procedure / Unknown Collection / Unknown 03/19/2025 10:04 AM EDT 03/19/2025 11:11 AM EDT Jennifer Fraser MD URINE ORDERABLES Final Result Performing Organization Address City/[facility] Co de Phone Number [facility] [address] [place] [address] * (ABNORMAL) Urinalysis (NO reflex to culture) (03/19/2025 10:04 AM EDT) Color Light-Yello w Colorless, Yellow, Light-Yello w, Dark-Yellow 03/19/2025 11:34 AM EDT [facility] Clarity, UA Clear Clear 03/19/2025 11:34 AM EDT [facility] Specific [place] 1.013 1.000 - 1.025 03/19/2025 11:34 AM EDT [facility] pH 7.0 5.0 - 8.0 03/19/2025 11:34 AM EDT [facility] Protein Negative Negative, 10 , 20 mg/dL 03/19/2025 11:34 AM EDT [facility] Glucose Normal Normal, 30 , 50 mg/dL 03/19/2025 11:34 AM EDT [facility] Ketones Negative Negative, Trace mg/dL 03/19/2025 11:34 AM EDT [facility] Blood Negative Negative, 0.03 mg/dL 03/19/2025 11:34 AM EDT [facility] Bilirubin UA Negative Negative mg/dL 03/19/2025 11:34 AM EDT [facility] Urobilinogen Normal Normal mg/dL 03/19/2025 11:34 AM EDT [facility] Nitrite Negative Negative 03/19/2025 11:34 AM EDT [facility] Leukocyte Esterase 250(A) Negative, 25 Yoon/uL 03/19/2025 11:34 AM EDT [facility] Urine Urine specimen obtained by clean catch procedure / Unknown Collection / Unknown 03/19/2025 10:04 AM EDT 03/19/2025 11:11 AM EDT us Jennifer Fraser MD URINE ORDERABLES Final Result [facility] [address] [place] [address] * X-ray ribs bilateral 4+ vwithwith PA chest (03/18/2025 3:14 PM EDT) Anatomical Region Laterality Modality Chest, Ortho Chest Digital Radio graphy 03/18/2025 4:38 PM EDT Impressions 03/18/2025 4:39 PM EDT IMPRESSION: No acute cardiopulmonary disease. RS: [id number] Narrative 03/18/2025 4:39 PM EDT HISTORY: rib pain TECHNIQUE: XR RIBS BILATERAL 4+ VW W PA CHEST COMPARISON: Relevant prior comparisons were made. FINDINGS: LINES/TUBES: None. MEDIASTINUM: The cardiomediastinal silhouette is stably enlarged. LUNGS/AIRWAYS/PLEURA: Low lung volumes. Elevation of the right hemidiaphragm. No pleural effusion or pneumothorax. BONES/ SOFT TISSUES: Multilevel thoracic disc height loss and marginal endplate osteophytes are present. Procedure Note Angus Osborne MD - 03/18/2025 HISTORY: rib pain TECHNIQUE: XR RIBS BILATERAL 4+ VW W PA CHEST COMPARISON: Relevant prior comparisons were made. FINDINGS: LINES/TUBES: None. MEDIASTINUM: The cardiomediastinal silhouette is stably enlarged. LUNGS/AIRWAYS/PLEURA: Low lung volumes. Elevation of the righthemidiaphragm. No pleural effusion or pneumothorax. BONES/ SOFT TISSUES: Multilevel thoracic disc height loss and marginalendplate osteophytes are present. IMPRESSION: No acute cardiopulmonary disease. RS: [id number] Cesia Anguiano MD IMG DIAGNOSTIC IMAGING ORDERABLE S Final Result * Respiratory Multiplex Panel - SARS/FLU/RSV (03/17/2025 2:10 AM EDT) Only the most recent of2 resultswithin the time period is included. SARS CoV-2 PCR Negative Negative 03/17/2025 2:57 AM EDT [facility] FLU A PCR Negative Negative 03/17/2025 2:57 AM EDT [facility] FLU B PCR Negative Negative 03/17/2025 2:57 AM EDT [facility] RSV PCR Negative Negative 03/17/2025 2:57 AM EDT [facility] Nasopharyngeal Nasopharyngeal swab / Unknown Collection / Unknown 03/17/2025 2:10 AM EDT 03/17/2025 2:10 AM EDT Narrative [facility] - 03/17/2025 2:57 AM EDT The Xpert Xpress CoV-2/Flu/RSV plus test is only for use under the Food and Drug Administration's Emergency Use Authorization. Positive results are indicative of active infection, but do not rule out bacterial infection or co-infection with other pathogens not detected by the test. Negative results do not preclude SARS-CoV-2, influenza A virus, influenza B virus and/or RSV infection and should not be used as the sole basis for treatment or other patient management decisions. Negative results must be combined with clinical observations, patient history, and/or epidemiological information. Clinical correlation with patient history and other diagnostic information is necessary to determine patient infection status. The agent detected may not be the definite cause of the disease. Reference Range: Negative (This is the expected value, NOT your result) Jennifer Fraser MD MICROBIOLOGY - GENERAL ORDERABLE S Final Result Performing Organization Address City/[facility] Co de Phone Number [facility] [address] [place] [phone] * Blood culture, peripheral (03/17/2025 12:31 AM EDT) Only the most recent of2 resultswithin the time period is included. Culture No Growth at 120 hrs. 03/22/2025 12:41 AM EDT [facility] Blood Venipuncture / Unknown 03/17/2025 12:31 AM EDT 03/17/2025 12:31 AM EDT Jennifer Fraser MD MICROBIOLOGY - GENERAL ORDERABLE S Final Result Performing Organization Address [facility] Co de Phone Number [address] [address] * Light Blue Top (03/16/2025 2:56 PM EDT) Extra Tube Auto resulted. 03/16/2025 6:57 PM EDT [facility] Comment:Hold for add-ons. Blood Venipuncture / Unknown 03/16/2025 2:56 PM EDT 03/16/2025 2:56 PM EDT Triage Protocol Emergency MD LAB BLOOD ORDERABLE S Final Result Performing Organization Address [facility] Co de Phone Number [facility] [address] [place] [address] * (ABNORMAL) D-dimer, quantitative (03/16/2025 2:56 PM EDT) D-Dimer, Quant 0.76(H) 0.00 - 0.50 ug/ml FEU 03/16/2025 6:57 PM EDT [facility] Blood Venipuncture / Unknown 03/16/2025 2:56 PM EDT 03/16/2025 2:56 PM EDT Narrative [facility] - 03/16/2025 6:57 PM EDT Outpatients or ER patients with a low clinical probability of DVT or PE, a D- Dimer value of less than 0.50 ug/mL FEU excludes DVT or PE with high likelihood. Outpatients with moderate or high clinical probability likely require additional evaluations. Danyel Naik MD LAB BLOOD ORDERABLES Final Resu lt Performing Organization Address [facility] de Phone Number [facility] [address] [place] [phone] * Green PST Top (03/16/2025 2:55 PM EDT) Only the most recent of2 resultswithin the time period is included. Extra Tube Auto resulted. 03/16/2025 6:57 PM EDT [facility] Comment:Hold for add-ons. Blood Venipuncture / Unknown 03/16/2025 2:55 PM EDT 03/16/2025 2:55 PM EDT Triage Protocol Emergency LAB BLOOD ORDERABLE S Final Result Performing Organization Address City/[facility] Co de Phone Number [facility] [address] [place] [address] * X-ray chest 1 view portable (02/17/2025 2:52 AM EDT) Anatomical Region Laterality Modality Chest, Ortho Chest Digital Radio graphy 02/17/2025 9:14 AM EDT Impressions 02/17/2025 4:18 PM EDT FINDINGS / IMPRESSION: There is no discernible acute infiltrate. There are stable chronic elevation of the right hemidiaphragm The cardiomediastinal silhouette is stable. RS: [id number] Narrative 02/17/2025 4:18 PM EDT History: Shortness of breath Comparison: Multiple prior examinations. Procedure Note Elian Damon MD - 02/17/2025 History: Shortness of breath Comparison: Multiple prior examinations. FINDINGS / IMPRESSION: There is no discernible acute infiltrate. There are stable chronicelevation of the right hemidiaphragm The cardiomediastinal silhouette is stable. RS: [id number] us Agueda Quijano NP IMG DIAGNOSTIC IMAGING ORDERABL ES Final Result * Hepatitis C Ab w/reflex to HCV Quant NAAT if positive (02/16/2025 10:41 AM EDT) HCV Ab Nonreactive Nonreactive 02/16/2025 5:42 PM EDT [facility] Blood Topography unknown / Unknown Venipuncture / Unknown 02/16/2025 10:41 AM EDT 02/16/2025 10:41 AM EDT Narrative [facility] - 02/16/2025 5:42 PM EDT A Nonreactive result does not exclude exposure or infection with HCV as antibody levels can be below detectable limits. A Reactive result may be due to antibodies to HCV recombinant antigens which are unrelated to HCV infection. More specific testing should be considered if clinically indicated. us Alisha Bender NP LAB BLOOD ORDERABLES Kayla gautam Result [facility] [address] [place] [address] * Hepatitis A antibody, total (02/16/2025 10:41 AM EDT) Hep A Total Ab Nonreactive Nonreactive 02/16/2025 5:48 PM EDT [facility] Blood Topography unknown / Unknown Venipuncture / Unknown 02/16/2025 10:41 AM EDT 02/16/2025 10:41 AM EDT us Krysta Wilcox PAPER PRODUCTS SUPERVISOR LAB BLOOD ORDERABLES Final Res ult Performing Organization Address City/[facility]/ZIP Co de Phone Number [facility] [address] [place] [phone] * Hepatitis B Core Antibody Total (02/16/2025 10:41 AM EDT) Pathologist [facility] Hep B Core Total Ab Nonreactive Nonreactive 02/16/2025 5:41 PM EDT [facility] Blood Topography unknown / Unknown Venipuncture / Unknown 02/16/2025 10:41 AM EDT 02/16/2025 10:41 AM EDT us Alisha Bender PAPER PRODUCTS SUPERVISOR LAB BLOOD ORDERABLES Kayla l Result Performing Organization Address [facility] Co de Phone Number [facility] [address] [place] [phone] * Hepatitis B Surface Antibody (02/16/2025 10:41 AM EDT) Anti HBs Nonreactive Nonreactive 02/16/2025 5:08 PM EDT [facility] Blood Topography unknown / Unknown Venipuncture / Unknown 02/16/2025 10:41 AM EDT 02/16/2025 10:41 AM EDT us Krysta Wilcox PAPER PRODUCTS SUPERVISOR LAB BLOOD ORDERABLES Final Res ult Performing Organization Address City/[facility] Co de Phone Number [facility] [address] [place] [address] * Hepatitis B Surface Antigen (02/16/2025 10:41 AM EDT) Hepatitis B Surface Ag Nonreactive Nonreactive 02/16/2025 5:21 PM EDT [facility] Blood Topography unknown / Unknown Venipuncture / Unknown 02/16/2025 10:41 AM EDT 02/16/2025 10:41 AM EDT us Alisha Bender PAPER PRODUCTS SUPERVISOR LAB BLOOD ORDERABLES Kayla l Result [facility] [address] [place] [address] * (ABNORMAL) Lipid panel (02/16/2025 10:41 AM EDT) Pathologist [facility] Cholesterol 224(H) <200 mg/dL 02/16/2025 4:08 PM EDT [facility] Triglycerides 149 <150 mg/dL 02/16/2025 4:08 PM EDT [facility] HDL 45.2(L) >=60.0 mg/dL 02/16/2025 4:08 PM EDT [facility] LDL Calculated 149(H) 0 - 100 mg/dL 02/16/2025 4:08 PM EDT [facility] Cardiac Risk Factor 5.0(H) 0.0 - 4.4 02/16/2025 4:08 PM EDT [facility] Blood Topography unknown / Unknown Venipuncture / Unknown 02/16/2025 10:41 AM EDT 02/16/2025 10:41 AM EDT Narrative [facility] - 02/16/2025 4:08 PM EDT Cardiac Risk Factor: Males Females 2x Average Risk 9.6 7.1 3x Average Risk 23.4 11.0 us Alisha Bender NP LAB BLOOD ORDERABLES Kayla l Result [facility] [address] [place] [address] * (ABNORMAL) Urine Complete (01/26/2025 12:40 PM EDT) Clarity, UA Turbid(A) Clear 01/27/2025 9:51 AM EDT [facility] Color Yellow Colorless, Yellow, Light-Yello w, Dark-Yellow 01/27/2025 9:51 AM EDT [facility] Specific [place] 1.018 1.000 - 1.025 01/27/2025 9:51 AM EDT [facility] pH 5.5 5.0 - 8.0 01/27/2025 9:51 AM EDT [facility] Protein Negative Negative, 10 , 20 mg/dL 01/27/2025 9:51 AM EDT [facility] Glucose Normal Normal, 30 , 50 mg/dL 01/27/2025 9:51 AM EDT [facility] Ketones Negative Negative, Trace mg/dL 01/27/2025 9:51 AM EDT [facility] Blood Negative Negative, 0.03 mg/dL 01/27/2025 9:51 AM EDT [facility] Bilirubin UA Negative Negative mg/dL 01/27/2025 9:51 AM EDT [facility] Urobilinogen Normal Normal mg/dL 01/27/2025 9:51 AM EDT [facility] Nitrite Negative Negative 01/27/2025 9:51 AM EDT [facility] Leukocyte Esterase 75(A) Negative, 25 Yoon/uL 01/27/2025 9:51 AM EDT [facility] WBC 6-10(A) 0 - 2 HPF 01/27/2025 9:51 AM EDT [facility] RBC 0-2 0-2 HPF HPF 01/27/2025 9:51 AM EDT [facility] Squam Epithelial Moderate(A) Few HPF 025 9:51 AM EDT [facility] Mucus Few Few HPF 01/27/2025 9:51 AM EDT [facility] Bacteria Few(A) None Seen HPF 01/27/2025 9:51 AM EDT [facility] Urine Urine specimen obtained by clean catch procedure / Unknown Collection / Unknown 01/26/2025 12:40 PM EDT 01/27/2025 9:06 AM EDT Narrative [facility] - 01/27/2025 9:51 AM EDT A urine culture is being performed on this specimen due to established reflex criteria Daniel Springer NP URINE ORDERABLES Final Resul t [facility] [address] [place] [address] * ARLEEN judith diagnostic left (03/13/2022 12:07 PM EDT) Anatomical Region Laterality Modality Breast Left Mammography 03/13/2022 11:5 7 AM EDT Impressions 03/13/2022 1:51 PM EDT IMPRESSION: No mammographic evidence of malignancy. Patient should return in September for bilateral annual screening mammography. The patient's information was entered into a reminder system with a target due date for the next mammogram. BI-RADS description: 2 - Benign Finding. Narrative 03/13/2022 1:51 PM EDT HISTORY: Patient had an abnormal left breast mammogram. Patient had 2 biopsies in the left breast in February. Patient is preop for excision. Patient has history of invasive lobular carcinoma in the left breast and family history of breast cancer. FINDINGS: Unilateral left mammogram with 2-D and 3-D tomosynthesis images were obtained with comparison to September 2021, June 2020 and November 2019. This examination was reviewed with the aid of [employer] CAD software. The breast parenchyma is heterogeneously dense. There is a nodule in the upper outer quadrant left breast with 2 biopsy clips adjacent or within the nodule which is reportedly benign. There are benign calcifications scattered throughout the left breast. There are no new suspicious masses or cluster of calcifications identified. Ann Eugene MD PhD IMG MAMMOGRAPHY ORDERABLES Final Result from Last 3 Months or Most Recently Relevant to Health Maintenance Insurance [facility] Advance Directives For more information, please contact: [phone] * Full Code (Latest Code Status on File) Date Activated Date Inactivated Comments 03/24/2025 5:11 AM 03/26/2025 4:32 PM * Full Code Date Activated Date Inactivated Comments 03/16/2025 11:32 PM 03/23/2025 5:20 PM * Full Code Date Activated Date Inactivated Comments 09/04/2024 9:08 PM 09/05/2024 10:48 PM * Full Code Date Activated Date Inactivated Comments 04/11/2024 4:10 PM 04/17/2024 9:25 PM * Full Code Date Activated Date Inactivated Comments 11/18/2022 4:26 PM 11/22/2022 2:40 PM Care Teams Sales Associate Key Holder Relationship Specialty Start Date End Date Jaylyn Andrews MD PCP - Family Medicine 03/01/14 Krysta Wilcox, PAPER PRODUCTS SUPERVISOR [address] [place] [phone] PCP - General Family Medicine 03/23/25 Irena Rodriguez MD [address] [place] [address] [place] [address] Physician Hematology and Oncology 12/27/21 Ashtyn Love, RN Registered Nurse 12/27/21
--- OUTSIDE RECORDS SUMMARY | 2025-04-22 00:14 | XMS_ITS | Encounter Summary ---
Author Organization [facility] Address [address] [place] [address] Care Team Providers Care On Air Host Name Role Phone Ha-Jaylyn Saunders MD Unavailable [phone] Irena Rodriguez MD Unavailable Ashtyn Love RN Unavailable UnavailKrysta Laurent DIGITAL COMPUTER OPERATOR Primary Care Provider [phone] Encounter Details Date Type Department Care Team (Late st Contact Info) Description 03/30/2025 Lab Requisition [address] [phone] Daniel Springer NP [address] [place] [address] Alcohol abuse, in remission; Major depressive disorder, [...] ing 03/17/2025 Do you need help with Housing/Longterm resources? Not on file 03/17/2025 Patient indicated [...] Description 06/25/2025 9:40 AM EDT Office Visit [facility] [address] [place] [phone] [place] [address] [place] [phone] documented as of this encounter Procedures Procedure Name Priority Date/Time Associated Diagnosis Comments HIV 1/2 AG+AB (4TH GEN) W/ REFLEX Routine 03/30/2025 7:13 AM EDT Alcohol abuse, in remission Major depressive disorder, recurrent, severe with psychotic symptoms (HCC) LIPID PROFILE, REFLEX DIRECT LDL Routine 03/30/2025 7:13 AM EDT Alcohol abuse, in remission Major depressive disorder, recurrent, severe with psychotic symptoms (HCC) TSH WITH REFLEX TO FREE T4 Routine 03/30/2025 7:13 AM EDT HEMOGLOBIN A1C Routine 03/30/2025 7:13 AM EDT documented in this encounter Results * HIV 1/2 AG+AB (4th Gen) w/Reflex (03/30/2025 7:13 AM EDT) HIV 1-2 AG/AB (4th Gen) Nonreactive Nonreactive 03/30/2025 10:55 AM EDT [facility] Blood Venipuncture / Unknown 03/30/2025 7:13 AM EDT 03/30/2025 9:40 AM EDT [facility] LAB BLOOD ORDERABLES Final R esult Performing Organization Address City/State/[facility] Co de Phone Number [facility] [address] [place] [address] * TSH with reflex to Free T4 (03/30/2025 7:13 AM EDT) TSH 1.976 0.550 - 4.780 uIU/mL 03/30/2025 10:29 AM EDT [facility] Blood Venipuncture / Unknown 03/30/2025 7:13 AM EDT 03/30/2025 9:40 AM EDT Narrative [facility] - 03/30/2025 10:29 AM EDT NOTE: [...] 0.480-4.170 uIU/mL 21 Years +: 0.550-4.780 uIU/mL [facility] LAB BLOOD ORDERABLES Final R esult Performing Organization Address [facility] de Phone Number [facility] [address] [place] [phone] * Hemoglobin A1c (03/30/2025 7:13 AM EDT) Pathologist [facility] Hemoglobin A1C 5.3 4.0 - 6.0 % 03/30/2025 10:50 AM EDT [facility] Estimated Average Glucose eAG 105.4 85.0 - 126.0 mg/dL 03/30/2025 10:50 AM EDT [facility] Blood 03/30/2025 7:13 AM EDT 03/30/2025 9:40 AM EDT [facility] LAB BLOOD ORDERABLES Final R esult Performing Organization Address [facility] de Phone Number [facility] [address] [place] [phone] * (ABNORMAL) Lipid profile, reflex direct LDL (03/30/2025 7:13 AM EDT) [facility] Cholesterol 119 <200 mg/dL 03/30/2025 10:28 AM EDT [facility] Triglycerides 88 <150 mg/dL 03/30/2025 10:28 AM EDT [facility] HDL 36.4(L) >=60.0 mg/dL 03/30/2025 10:28 AM EDT [facility] LDL Calculated 65 0 - 100 mg/dL 03/30/2025 10:28 AM EDT [facility] Cardiac Risk Factor 3.3 0.0 - 4.4 03/30/2025 10:28 AM EDT [facility] Blood Venipuncture / Unknown 03/30/2025 7:13 AM EDT 03/30/2025 9:40 AM EDT Narrative [facility] - 03/30/2025 10:28 AM EDT Cardiac Risk Factor: Males Females 2x Average Risk 9.6 7.1 3x Average Risk 23.4 11.0 Daniel Springer NP LAB BLOOD ORDERABLES Final R esult [facility] [address] [place] [address] documented in this encounter Visit Diagnoses Diagnosis Alcohol abuse, in remission Nondependent alcohol abuse, in remission Major depressive disorder, recurrent, severe with psychotic symptoms (HCC) documented in this encounter Care Teams On Air Host Relationship Specialty Start Date End Date Jaylyn Andrews MD PCP - Family Medicine 03/01/14 Krysta Wilcox NP [address] [place] [phone] PCP - General Family Medicine 03/23/25 Irena Rodriguez MD [address] [place] [address] [place] [address] Physician Hematology and Oncology 12/27/21 Ashtyn Love, RN Registered Nurse 12/27/21 documented as of this encounter
--- OUTSIDE RECORDS SUMMARY | 2025-04-22 00:15 | XMS_ITS | Encounter Summary ---
Author Organization [employer] Address [address] [facility] 7t [place] [address] Care Team Providers Care Powertrain Control Systems Engineer Name Role Phone Krysta Wilcox [facility] Primary Care Provider Reason for Visit * Reason Comments Med Refill Encounter Details Date Type Department Care Team (Late st Contact Info) Description 07/27/2024 Refill HF FCC PRIMARY/PEDS [address] [facility], [address] [place] [address] WilcoxKrysta [facility] [address] [facility] [facility] [address] [place] [address] Dizziness Social History Tobacco Use Types Packs/Day Years Used Date Smoking Tobacco: Never Smokeless Tobacco: Never Alcohol Use Standard Drinks/Week Comments Never 0 (1 standard drink = 0.6 oz pur e alcohol) Depression Answer Date Recorded Patient Health Questionnaire-9 Score 6 10/31/2023 Patient Health Questionnaire-9 Score 6 10/31/2023 Last PHQ-9: Questionnaire Data Not on file 0 10/31/2023 Housing Stability Answer Date Recorded What is your housing situation today? I do not have housing (Staying with others, in a hotel, in a prison, living outside on the street, on a [...] Answer Date Recorded Patient Health Questionnaire-2 Score 2 10/31/2023 Comments No Sex and Gender Information Value Date Recorded Sex Assigned at Female 07/30/2023 12:25 PM EST Legal Sex Female 9:27 AM EDT Gender Identity Female 07/30/2023 12:25 PM EST Sexual Orientation Don't know 07/30/2023 12 :25 PM EST documented as of this encounter Miscellaneous Notes * Telephone Encounter - Alka Arnold LPN - 08/01/2024 10:43 AM EST Call to pt no answer left message to return call. * Telephone Encounter - Brandie Orantes LPN - 07/30/2024 4:28 PM EST Ok to refill? documented in this encounter Plan of Treatment Not on file documented as of this encounter Visit Diagnoses Diagnosis Dizziness Dizziness and giddiness documented in this encounter Additional Health Concerns Assessment Noted Time PHQ-9 Depression Total Score: 6 10/31/19 24 11:02 AM EST documented as of this encounter Care Teams Powertrain Control Systems Engineer Relationship Specialty Start Date End Date Krysta Wilcox FNP-BC [address] [place] [address] PCP - General Family Medicine 06/11/23 documented as of this encounter
--- OUTSIDE RECORDS SUMMARY | 2025-04-22 00:15 | XMS_ITS | Encounter Summary ---
Author Organization [facility] Address [address] [place] [address] Care Team Providers Care Wealth Management Manager Name Role Phone Jaylyn Andrews MD Unavailable [phone] Irena Rodriguez MD Unavailable Ashtyn Love RN Unavailable Grupo Albarran MACHINE MAINTENANCE SUPERVISOR Primary Care Provider [phone] Krysta Wilcox MACHINE MAINTENANCE SUPERVISOR Primary Care Provider [phone] Encounter Details Date Type Department Care Team (Late st Contact Info) Description 07/25/2024 Lab Requisition [address] [phone] Lio Ruiz MD [address] [place] [phone] Major depressive disorder, recurrent severe without psychotic features (HCC); Post-traumatic stress disorder, chronic Social History Tobacco Use Types Packs/Day Years Used Date Smoking Tobacco: Former Cigarettes Q uit: 12/20/1990 Smokeless Tobacco: Never Alcohol Use Standard Drinks/Week Comments Never 0 (1 standard drink = 0.6 oz pur e alcohol) Housing Stability - SDOH Screener Answer Date Recorded What is your living situation today? Steady hous ing 04/11/2024 Do you need help with Housing/Skilled Nursing resources? Not on file 04/11/2024 Patient indicated [...] Description 06/25/2025 9:40 AM EDT Office Visit [facility] [address] [place] [address] Arnel Causey MD [address] [place] [address] documented as of this encounter Procedures Procedure Name Priority Date/Time Associated Diagnosis Comments HEMOGLOBIN A1C Routine 07/25/2024 9:30 AM EST Major depressive disorder, recurrent severe without psychotic features (HCC) Post-traumatic stress disorder, chronic documented in this encounter Results * Hemoglobin A1c (07/25/2024 9:30 AM EST) Hemoglobin A1C 5.5 4.0 - 6.0 % 07/25/2024 12:19 PM EST [facility] Estimated Average Glucose eAG 111.2 85.0 - 126.0 mg/dL 07/25/2024 12:19 PM EST [facility] Blood Venipuncture / Unknown 07/25/2024 9:30 AM EST 07/25/2024 11:34 AM EST Lio Ruiz MD LAB BLOOD ORDERABLES Final Resul t [facility] [address] [place] [address] documented in this encounter Visit Diagnoses Diagnosis Major depressive disorder, recurrent severe without psychotic features (HCC) Post-traumatic stress disorder, chronic documented in this encounter Additional Health Concerns Infection Onset Date Last Indicated Resolved Time PUI COVID 01/23/2025 01/24/2025 01/24/2025 12:4 2 AM EDT documented as of this encounter Care Teams Wealth Management Manager Relationship Specialty Start Date End Date Ha-Jaylyn Saunders MD PCP - Family Medicine 03/01/14 Grupo Goncalves NP [address] [place] [address] PCP - General Nurse Practitioner 11/10/23 03/22/25 Krysta Wilcox NP [address] [place] [address] PCP - General Family Medicine 03/23/25 Irena Rodriguez MD [address] [place] [address] [place] [address] Physician Hematology and Oncology 12/27/21 Ashtyn Love, RN Registered Nurse 12/27/21 documented as of this encounter
--- OUTSIDE RECORDS SUMMARY | 2025-04-22 00:15 | XMS_ITS | Encounter Summary ---
Author Organization [facility] Address [address] [place] [address] Care Team Providers Care Peoplesoft Functional Analyst Name Role Phone Jaylyn Andrews MD Unavailable [phone] Irena Rodriguez MD Unavailable Ashtyn Love RN Unavailable Grupo Albarran NP Primary Care Provider [phone] Krysta Wilcox NP Primary Care Provider [phone] Encounter Details Date Type Department Care Team (Late st Contact Info) Description 12/11/2023 Lab Requisition [address] [phone] Radha Noble NP [address] [place] [phone] Major depressive disorder, recurrent, severe with psychotic symptoms (HCC); Post-traumatic stress disorder, chronic Social History [...] Description 06/25/2025 9:40 AM EDT Office Visit [facility] [address] [place] [address] Arnel Causey MD [address] [place] [address] documented as of this encounter Procedures Procedure Name Priority Date/Time Associated Diagnosis Comments LIPID PROFILE, REFLEX DIRECT LDL Routine 12/11/2023 7:40 AM EDT T3, FREE Routine 12/11/2023 7:40 AM EDT TSH WITH REFLEX TO FREE T4 Routine 12/11/2023 7:40 AM EDT T4, FREE Routine 12/11/2023 7:40 AM EDT HEMOGLOBIN A1C Routine 12/11/2023 7:40 AM EDT COMPREHENSIVE METABOLIC PANEL Routine 12/11/2023 7:40 AM EDT Major depressive disorder, recurrent, severe with psychotic symptoms (HCC) Post-traumatic stress disorder, chronic documented in this encounter Results * T4, Free (12/11/2023 7:40 AM EDT) Free T4 1.21 0.89 - 1.76 ng/dL 12/11/2023 10:45 AM EDT [facility] Blood Venipuncture / Unknown 12/11/2023 7:40 AM EDT 12/11/2023 9:50 AM EDT us Radha Noble NP LAB BLOOD ORDERABLES Final Resul t [facility] [address] [place] [address] * T3, Free (12/11/2023 7:40 AM EDT) T3, Free 3.34 2.30 - 4.20 pg/mL 12/11/2023 10:43 AM EDT [facility] Blood Venipuncture / Unknown 12/11/2023 7:40 AM EDT 12/11/2023 9:50 AM EDT Radha Noble NP LAB BLOOD ORDERABLES Final Resul t Performing Organization Address [facility] de Phone Number [facility] [address] [place] [phone] * TSH with reflex to Free T4 (12/11/2023 7:40 AM EDT) TSH 1.394 0.340 - 4.820 uIU/mL 12/11/2023 10:45 AM EDT [facility] Blood Venipuncture / Unknown 12/11/2023 7:40 AM EDT 12/11/2023 9:50 AM EDT Radha Noble NP LAB BLOOD ORDERABLES Final Resul t Performing Organization Address [facility] Phone Number [facility] [address] [place] [phone] * Hemoglobin A1c (12/11/2023 7:40 AM EDT) Hemoglobin A1C 5.1 4.0 - 6.0 % 12/11/2023 10:34 AM EDT [facility] Estimated Average Glucose eAG 99.7 85.0 - 126.0 mg/dL 12/11/2023 10:34 AM EDT [facility] Blood 12/11/2023 7:40 AM EDT 12/11/2023 9:50 AM EDT Radha Noble NP LAB BLOOD ORDERABLES Final Resul t Performing Organization Address [facility] Phone Number [facility] [address] [place] [phone] * (ABNORMAL) Lipid profile, reflex direct LDL (12/11/2023 7:40 AM EDT) Cholesterol 118 <200 mg/dL 12/11/2023 10:45 AM EDT [facility] Triglycerides 121 <150 mg/dL 12/11/2023 10:45 AM EDT [facility] HDL 44.6(L) >=60.0 mg/dL 12/11/2023 10:45 AM EDT [facility] LDL Calculated 49 0 - 100 mg/dL 12/11/2023 10:45 AM EDT [facility] Cardiac Risk Factor 2.6 0.0 - 4.4 12/11/2023 10:45 AM EDT [facility] Blood Venipuncture / Unknown 12/11/2023 7:40 AM EDT 12/11/2023 9:50 AM EDT Narrative [facility] - 12/11/2023 10:45 AM EDT Cardiac Risk Factor: Males Females 2x Average Risk 9.6 7.1 3x Average Risk 23.4 11.0 Radha Noble NP LAB BLOOD ORDERABLES Final Resul t [facility] [address] [place] [phone] * (ABNORMAL) Comprehensive metabolic panel (12/11/2023 7:40 AM EDT) Sodium 141 136 - 145 mEq/L 12/11/2023 10:45 AM EDT [facility] Potassium 4.4 3.5 - 5.1 mEq/L 12/11/2023 10:45 AM EDT [facility] Chloride 105 98 - 107 mEq/L 12/11/2023 10:45 AM EDT [facility] CO2 28 20 - 31 mEq/L 12/11/2023 10:45 AM EDT [facility] Anion Gap 8 4 - 15 mEq/L 12/11/2023 10:45 AM EDT [facility] Glucose 82 70 - 100 mg/dL 12/11/2023 10:45 AM EDT [facility] Creatinine 0.93 0.50 - 1.00 mg/dL 12/11/2023 10:45 AM EDT [facility] eGFR (Female) >60 60 - 115 mL/min 12/11/2023 10:45 AM EDT [facility] BUN 12 9 - 23 mg/dL 12/11/2023 10:45 AM EDT [facility] Calcium 9.6 8.7 - 10.4 mg/dL 12/11/2023 10:45 AM EDT [facility] Total Protein 6.7 5.7 - 8.2 g/dL 12/11/2023 10:45 AM EDT [facility] Albumin 4.2 3.2 - 4.8 g/dL 12/11/2023 10:45 AM EDT [facility] A/G Ratio 1.7 1.0 - 2.3 12/11/2023 10:45 AM EDT [facility] Total Bilirubin 0.8 0.2 - 1.0 mg/dL 12/11/2023 10:45 AM EDT [facility] AST 23 13 - 40 U/L 12/11/2023 10:45 AM EDT [facility] Alkaline Phosphatase 118(H) 46 - 116 IU/L 12/11/2023 10:45 AM EDT [facility] ALT 24 7 - 40 U/L 12/11/2023 10:45 AM EDT [facility] Blood Venipuncture / Unknown 12/11/2023 7:40 AM EDT 12/11/2023 9:50 AM EDT Radha Noble NP LAB BLOOD ORDERABLES Final Resul t [facility] [address] [place] [address] documented in this encounter Visit Diagnoses Diagnosis Major depressive disorder, recurrent, severe with psychotic symptoms (HCC) Post-traumatic stress disorder, chronic documented in this encounter Additional Health Concerns Infection Onset Date Last Indicated Resolved Time PUI COVID 01/23/2025 01/24/2025 01/24/2025 12:4 2 AM EDT documented as of this encounter Care Teams Peoplesoft Functional Analyst Relationship Specialty Start Date End Date Ha-Jaylyn Saunders MD PCP - Family Medicine 03/01/14 Grupo Goncalves NP [address] [place] [address] PCP - General Nurse Practitioner 11/10/23 03/22/25 Krysta Wilcox NP [address] [place] [address] PCP - General Family Medicine 03/23/25 Irena Rodriguez MD [address] [place] [address] Cancer [facility] [place] [address] Physician Hematology and Oncology 12/27/21 Ashtyn Love, RN Registered Nurse 12/27/21 documented as of this encounter
--- OUTSIDE RECORDS SUMMARY | 2025-04-22 00:15 | XMS_ITS | Encounter Summary ---
Author Organization [employer] Address [address] [facility] 7t [place] [address] Care Team Providers Care Biscuit Maker Name Role Phone Krysta Wilcox [facility] Primary Care Provider [phone] Reason for Visit * Reason Comments Med Refill Encounter Details Date Type Department Care Team (Late st Contact Info) Description 08/29/2024 Refill HF [facility] PRIMARY/PEDS [address] [facility], [address] [place] [address] Krysta Wilcox [facility] [address] [facility] [address] [place] [address] History of myocardial infarction Social History Tobacco Use Types Packs/Day Years [...] with others, in a hotel, in a jail, living outside on the street, on a [...] as of this encounter Visit Diagnoses Diagnosis History of myocardial infarction documented in this encounter Additional Health Concerns Assessment Noted Time PHQ-9 Depression Total Score: 6 10/31/19 24 11:02 AM EST documented as of this encounter Care Teams Biscuit Maker Relationship Specialty Start Date End Date Krysta Wilcox FNP- [address] [place] [address] PCP - General Family Medicine 06/11/23 documented as of this encounter
--- OUTSIDE RECORDS SUMMARY | 2025-04-22 00:15 | XMS_ITS | Encounter Summary ---
Author Organization [facility] Address [address] [place] [address] Care Team Providers Care Train Master Name Role Phone Jaylyn Andrews MD Unavailable [phone] Irena Rodriguez MD Unavailable Ashtyn Love RN Unavailable Grupo Albarran INSULATION FOREMAN Primary Care Provider [phone] Krysta Wilcox INSULATION FOREMAN Primary Care Provider [phone] Encounter Details Date Type Department Care Team (Late st Contact Info) Description 04/21/2024 Pharmacy Visit [facility] [address] [place] [address] Social History Tobacco Use Types [...] Description 06/25/2025 9:40 AM EDT Office Visit [facility] [address] [place] [address] Arnel Causey MD [address] [place] [address] documented as of this encounter Visit Diagnoses Not on filedocumented in this encounter Additional Health Concerns Infection Onset Date Last Indicated Resolved Time PUI COVID 01/23/2025 01/24/2025 01/24/2025 12:4 2 AM EDT documented as of this encounter Care Teams Train Master Relationship Specialty Start Date End Date Ha-Jaylyn Saunders MD PCP - Family Medicine 03/01/14 Grupo Goncalves NP [address] [place] [address] PCP - General Nurse Practitioner 11/10/23 03/22/25 Krysta Wilcox NP [address] [place] [address] PCP - General Family Medicine 03/23/25 Irena Rodriguez MD [address] [place] [address] [place] [address] Physician Hematology and Oncology 12/27/21 Ashtyn Love, RN Registered Nurse 12/27/21 documented as of this encounter
--- OUTSIDE RECORDS SUMMARY | 2025-04-22 00:15 | XMS_ITS | Encounter Summary ---
Author Organization [employer] Address [address] [facility] 7t [place] [address] Care Team Providers Care Motor Vehicle License Clerk Name Role Phone WilcoxKrysta aldridge [facility] Primary Care Provider Reason for Visit * Reason Onset Date Comments vna services 11/27/2024 Encounter Details Date Type Department Care Team (Late st Contact Info) Description 11/27/[address] [facility] PRIMARY/PEDS [address] [facility], [address] [place] [address] [facility] Wilcox [facility] [address] [facility] [address] [place] [address] vna services Social History Tobacco Use Types Packs/Day Years Used Date Smoking Tobacco: Never Smokeless Tobacco: Never Alcohol Use Standard Drinks/Week Comments Never 0 (1 standard drink = 0.6 oz pur e alcohol) Alcohol Answer Date Recorded Q1: How often do you have a drink containing alc ohol? 1 11/28/2024 Q2: How many drinks containi ng alcohol do you have on a typical day when you are drinking? 0 11/28/2024 Q3: How often do you have six or more drinks on one occasion? 1 11/28/2024 Depression Answer Date Recorded Patient Health Questionnaire-9 Score 6 10/31/2023 Patient Health Questionnaire-9 Score 6 10/31/2023 Last PHQ-9: Questionnaire Data Not on file 0 10/31/2023 Housing Stability Answer Date Recorded What is your housing situation today? I do not have housing (Staying with others, in a hotel, in a snf, living outside on the street, on a [...] PM EST documented as of this encounter Functional Status * Audit-C Score Answer Date of Assessment Author 0 11/28/2024 8:35 AM Tamica Sher MA * Question Answer Date of Assessment Author Q1: How often do you have a drink containing alcohol? Never 11/28/2024 8:35 AM Tamica Sher MA Q2: How many drinks containing alcohol do you have on a typical day when you are drinking? Patient does not drink 11/28/2024 8:35 AM Tamica Sher [place] Q3: How often do you have six or more drinks on one occasion? Never 11/28/2024 8:35 AM Tamica Sher [place] * Over the past 2 weeks, how often have you been bothered by any of the following problems? Question Answer Date of Assessment Author Little interest or pleasure in doing things Not at all 11/28/2024 8:32 AM Tamica Sher MA Feeling down, depressed, or hopeless Several days 11/28/2024 8:32 AM Tamica Sher MA Patient Health Questionnaire-2 Score 1 11/28/2024 8:32 AM EDT Verena Young MA * If you checked off any problems on this questionnaire so far, Question Answer Date of Assessment Author How difficult have these problems made it for you to do your work, take care of things at home, or get along with other people? Somewhat difficult 11/28/2024 8:32 AM EDT Tamica Young [place] documented as of this encounter Miscellaneous Notes * Telephone Encounter - Chelo Dudley - 11/27/2024 11:40 AM EDT [facility]NA Angely calling states that patient has refused med management VNA services at this time, Angely did let pt know she can signed up for services any time in the future documented in this encounter Plan of Treatment Not on file documented as of this encounter Visit Diagnoses Not on filedocumented in this encounter Additional Health Concerns Assessment Noted Time PHQ-9 Depression Total Score: 6 10/31/19 24 11:02 AM EST documented as of this encounter Care Teams Motor Vehicle License Clerk Relationship Specialty Start Date End Date Krysta Wilcox FNP- [address] [place] [address] PCP - General Family Medicine 06/11/23 documented as of this encounter
--- OUTSIDE RECORDS SUMMARY | 2025-04-22 00:15 | XMS_ITS | Encounter Summary ---
Author Organization [facility] Address [address] [place] [address] Care Team Providers Care Behavior Analyst Name Role Phone Jaylyn Andrews MD Unavailable [phone] Irena Rodriguez MD Unavailable Ashtyn Love RN Unavailable Grupo Albarran COUNTY ENGINEER Primary Care Provider [phone] Krysta Wilcox COUNTY ENGINEER Primary Care Provider [phone] Encounter Details Date Type Department Care Team (Late st Contact Info) Description 04/15/2024 Pharmacy Visit [facility] [address] [place] [address] Social History Tobacco Use Types [...] Description 06/25/2025 9:40 AM EDT Office Visit [facility] [address] [place] [address] Arnel Causey MD [address] [place] [address] documented as of this encounter Visit Diagnoses Not on filedocumented in this encounter Additional Health Concerns Infection Onset Date Last Indicated Resolved Time PUI COVID 01/23/2025 01/24/2025 01/24/2025 12:4 2 AM EDT documented as of this encounter Care Teams Behavior Analyst Relationship Specialty Start Date End Date Ha-Jaylyn Saunders MD PCP - Family Medicine 03/01/14 Grupo Goncalves NP [address] [place] [address] PCP - General Nurse Practitioner 11/10/23 03/22/25 Krysta Wilcox NP [address] [place] [address] PCP - General Family Medicine 03/23/25 Irena Rodriguez MD [address] [place] [address] [place] [address] Physician Hematology and Oncology 12/27/21 Ashtyn Love, RN Registered Nurse 12/27/21 documented as of this encounter
--- OUTSIDE RECORDS SUMMARY | 2025-04-22 00:15 | XMS_ITS | Encounter Summary ---
Author Organization [facility] Address [address] [place] [address] Care Team Providers Care Principal Technical Specialist Name Role Phone Jaylyn Andrews MD Unavailable [phone] Irena Rodriguez MD Unavailable Ashtyn Love RN Unavailable Grupo Albarran COLORER MACHINE Primary Care Provider [phone] Krysta Wilcox COLORER MACHINE Primary Care Provider [phone] Encounter Details Date Type Department Care Team (Late st Contact Info) Description 09/02/2024 Lab Requisition [address] [phone] Lio Ruiz MD [address] [place] [phone] Major depressive disorder, recurrent severe without [...] ing 04/11/2024 Do you need help with Housing/Halfway resources? Not on file 04/11/2024 Patient indicated [...] 06/25/2025 9:40 AM EDT Office Visit [facility] [address] [place] [address] Arnel Causey MD [address] [place] [address] documented as of this encounter Procedures Procedure Name Priority Date/Time Associated Diagnosis Comments URINE CULTURE AND COLONY COUNT Routine 09/01/2024 6:00 AM EST Major depressive disorder, recurrent severe without psychotic features (HCC) Post-traumatic stress disorder, chronic documented in this encounter Results * Urine Culture and [place] Count (09/01/2024 6:00 AM EST) Culture 50,000 - 100,000 colonies/ml Mixed Gram Positive Organisms SUSCEPTIBIL ITY TESTING 09/03/2024 2:38 PM EST [facility] Urine Urine specimen obtained by clean catch procedure / Unknown Non-SHG Collection / Unknown 09/01/2024 6:00 AM EST 09/02/2024 8:40 AM EST Narrative [facility] - 09/03/2024 2:38 PM EST Unable to determine if a potential pathogen is present due to the presence of multiple colonizing Organisms. If Clinically indicated, a Repeat Culture is recommended. Lio Ruiz MD MICROBIOLOGY - GENERAL ORDERABLE S Final Result [facility] [address] [place] [address] documented in this encounter Visit Diagnoses Diagnosis Major depressive disorder, recurrent severe without psychotic features (HCC) Post-traumatic stress disorder, chronic documented in this encounter Additional Health Concerns Infection Onset Date Last Indicated Resolved Time PUI COVID 01/23/2025 01/24/2025 01/24/2025 12:4 2 AM EDT documented as of this encounter Care Teams Principal Technical Specialist Relationship Specialty Start Date End Date Bonner-Jaylyn Saunders MD PCP - Family Medicine 03/01/14 Grupo Goncalves NP [address] [place] [address] PCP - General Nurse Practitioner 11/10/23 03/22/25 Krysta Wilcox NP [address] [place] [address] PCP - General Family Medicine 03/23/25 Irena Rodriguez MD [address] [place] [address] [place] [address] Physician Hematology and Oncology 12/27/21 Ashtyn Love, RN Registered Nurse 12/27/21 documented as of this encounter
--- OUTSIDE RECORDS SUMMARY | 2025-04-22 00:15 | XMS_ITS | Encounter Summary ---
Author Organization [facility] [place] Address [address] [place] [address] Care Team Providers Care Speedboat Driver Name Role Phone Jaylyn Andrews MD Unavailable [phone] Irena Rodriguez MD Unavailable Ashtyn Love RN [facility]available [facility] SHALE PLANER OPERATOR Primary Care Provider [phone] Krysta Wilcox SHALE PLANER OPERATOR Primary Care Provider [phone] Encounter Details Date Type Department Care Team (Late st Contact Info) Description 04/11/2024 ED Telemedicine [facility] [address] [place] [address] Hanh Clark MD [address] [place] [address] Social History Tobacco Use Types Packs/Day Years [...] Description 06/25/2025 9:40 AM EDT Office Visit [facility] [address] [place] [address] Arnel Causey MD [address] [place] [address] documented as of this encounter Visit Diagnoses Not on filedocumented in this encounter Additional Health Concerns Infection Onset Date Last Indicated Resolved Time PUI COVID 01/23/2025 01/24/2025 01/24/2025 12:4 2 AM EDT documented as of this encounter Care Teams Speedboat Driver Relationship Specialty Start Date End Date Jaylyn Andrews MD PCP - Family Medicine 03/01/14 Grupo Goncalves NP [address] [place] [address] PCP - General Nurse Practitioner 11/10/23 03/22/25 Krysta Wilcox NP [address] [place] [address] PCP - General Family Medicine 03/23/25 Irena Rodriguez MD [address] [place] [address] Cancer [facility] [place] [address] Physician Hematology and Oncology 12/27/21 Ashtyn Love, RN Registered Nurse 12/27/21 documented as of this encounter
--- OUTSIDE RECORDS SUMMARY | 2025-04-22 00:15 | XMS_ITS | Encounter Summary ---
Author Organization [facility] Address [address] [place] [address] Care Team Providers Care Methane Gas Collection System Operator Name Role Phone Jaylyn Andrews MD Unavailable Irena Rodriguez MD Unavailable Ashtyn Love RN [facility]available [facility] DISTRICT BRANCH MANAGER Primary Care Provider [phone] Krysta Wilcox DISTRICT BRANCH MANAGER Primary Care Provider [phone] Encounter Details Date Type Department Care Team (Late st Contact Info) Description 04/11/2024 Social Work [facility] - [address] [address] Hanh Clark MD [address] [place] [address] Social History Tobacco Use Types Packs/Day Years Used Date Smoking Tobacco: Former Cigarettes Q uit: 12/20/1990 Smokeless Tobacco: Never Alcohol Use Standard Drinks/Week Comments Never 0 (1 standard drink = 0.6 oz pur e alcohol) Housing Stability - SDOH Screener Answer Date Recorded What is your living situation today? Steady hous ing 04/11/2024 Do you need help with Housing/Penitentiary resources? Not on file 04/11/2024 Patient indicated [...] Description 06/25/2025 9:40 AM EDT Office Visit [facility] [address] [place] [address] Arnel Causey MD [address] [place] [address] documented as of this encounter Visit Diagnoses Not on filedocumented in this encounter Additional Health Concerns Infection Onset Date Last Indicated Resolved Time PUI COVID 01/23/2025 01/24/2025 01/24/2025 12:4 2 AM EDT documented as of this encounter Care Teams Methane Gas Collection System Operator Relationship Specialty Start Date End Date Jaylyn Andrews MD PCP - Family Medicine 03/01/14 Grupo Goncalves NP [address] [place] [address] PCP - General Nurse Practitioner 11/10/23 03/22/25 Krysta Wilcox NP [address] [place] [address] PCP - General Family Medicine 03/23/25 Irena Rodriguez MD [address] [place] [address] Cancer [facility] [place] [address] Physician Hematology and Oncology 12/27/21 Ashtyn Love, RN Registered Nurse 12/27/21 documented as of this encounter
--- OUTSIDE RECORDS SUMMARY | 2025-04-22 00:15 | XMS_ITS | Encounter Summary ---
Author Organization [facility] Address [address] [place] [address] Care Team Providers Care Sales Agent Trading Stamps Name Role Phone Jaylyn Andrews MD Unavailable [phone] Irena Rodriguez MD Unavailable Ashtyn Love RN Unavailable [employer] Albarran CRYPTOZOOLOGIST Primary Care Provider [phone] Krysta Wilcox CRYPTOZOOLOGIST Primary Care Provider [phone] Encounter Details Date Type Department Care Team (Late st Contact Info) Description 04/17/2024 Pharmacy Visit [facility] [address] [place] [address] Social History Tobacco Use Types Packs/Day Years Used Date Smoking Tobacco: Former Cigarettes Q uit: 12/20/1990 Smokeless Tobacco: Never Alcohol Use Standard Drinks/Week Comments Never 0 (1 standard drink = 0.6 oz pur e alcohol) Housing Stability - SDOH Screener Answer Date Recorded What is your living situation today? Steady hous ing 04/11/2024 Do you need help with Housing/Custodial resources? Not on file 04/11/2024 Patient indicated [...] Description 06/25/2025 9:40 AM EDT Office Visit [facility] [address] [place] [address] Arnel Causey MD [address] [place] [address] documented as of this encounter Visit Diagnoses Not on filedocumented in this encounter Additional Health Concerns Infection Onset Date Last Indicated Resolved Time PUI COVID 01/23/2025 01/24/2025 01/24/2025 12:4 2 AM EDT documented as of this encounter Care Teams Sales Agent Trading Stamps Relationship Specialty Start Date End Date Ha-Jaylyn Saunders MD PCP - Family Medicine 03/01/14 Grupo Goncalves NP [address] [place] [address] PCP - General Nurse Practitioner 11/10/23 03/22/25 Krysta Wilcox NP [address] [place] [address] PCP - General Family Medicine 03/23/25 Irena Rodriguez MD [address] [place] [address] [place] [address] Physician Hematology and Oncology 12/27/21 Ashtyn Love, RN Registered Nurse 12/27/21 documented as of this encounter
--- OUTSIDE RECORDS SUMMARY | 2025-04-22 00:16 | XMS_ITS | Encounter Summary ---
Author Organization [employer] Address [address] [facility] 7t [place] [address] Care Team Providers Care Human Resources Operations Director Name Role Phone Krysta Wilcox [facility] Primary Care Provider Reason for Visit * Reason Comments Med Refill Encounter Details Date Type Department Care Team (Late st Contact Info) Description 01/17/2025 Refill HF FCC PRIMARY/PEDS [address] [facility], [address] [place] [address] Ijeoma Monteiro [facility] [address] [facility] [address] [place] [address] Social History Tobacco Use Types Packs/Day Years [...] encounter Miscellaneous Notes * Telephone Encounter - DENEEN Rao - 01/23/2025 1:44 PM EDT Approving, but needs appt for additional refills. * Telephone Encounter - Alka Arnold LPN - 01/23/2025 12:32 PM EDT Please review not on current med list. (Any responses send to nurse pod 1). documented in this encounter Plan of Treatment Not on file documented as of this encounter Visit Diagnoses Not on filedocumented in this encounter Additional Health Concerns Assessment Noted Time PHQ-9 Depression Total Score: 6 10/31/19 24 11:02 AM EST documented as of this encounter Care Teams Human Resources Operations Director Relationship Specialty Start Date End Date Krysta Wilcox FNP- [address] [place] [address] PCP - General Family Medicine 06/11/23 documented as of this encounter
--- OUTSIDE RECORDS SUMMARY | 2025-04-22 00:16 | XMS_ITS | Encounter Summary ---
Author Organization [facility] Address [address] [place] [address] Care Team Providers Care Relief Docking Master Name Role Phone Ha-Jaylyn Saunders MD Unavailable Irena Rodriguez MD Unavailable Ashtyn Love RN Unavailable [facility] Gruber MASON LINER Primary Care Provider Krysta Wilcox MASON LINER Primary Care Provider [phone] Encounter Details Date Type Department Care Team (Late st Contact Info) Description 10/22/2024 Orders Only [facility] [address] [place] [address] Irena Rodriguez MD [address] [place] [address] [place] [address] Social History Tobacco Use Types Packs/Day Years Used Date Smoking Tobacco: Former Cigarettes Q uit: 12/20/1990 Smokeless Tobacco: Never Alcohol Use Standard Drinks/Week Comments Never 0 (1 standard drink = 0.6 oz pur e alcohol) Housing Stability - SDOH Screener Answer Date Recorded What is your living situation today? Steady hous ing 04/11/2024 Do you need help with Housing/Correction resources? Not on file 04/11/2024 Patient indicated [...] Description 06/25/2025 9:40 AM EDT Office Visit [facility] [address] [place] [address] [place] [address] [place] [address] documented as of this encounter Visit Diagnoses Not on filedocumented in this encounter Additional Health Concerns Infection Onset Date Last Indicated Resolved Time PUI COVID 01/23/2025 01/24/2025 01/24/2025 12:4 2 AM EDT documented as of this encounter Care Teams Relief Docking Master Relationship Specialty Start Date End Date Jaylyn Andrews MD PCP - Family Medicine 03/01/14 Grupo Goncalves NP [address] [place] [address] PCP - General Nurse Practitioner 11/10/23 03/22/25 Krysta Wilcox NP [address] [place] [address] PCP - General Family Medicine 03/23/25 Irena Rodriguez MD [address] [place] [address] [place] [address] Physician Hematology and Oncology 12/27/21 Ashtyn Love, RN Registered Nurse 12/27/21 documented as of this encounter
--- OUTSIDE RECORDS SUMMARY | 2025-04-22 00:16 | XMS_ITS | Encounter Summary ---
Author Organization [employer] Address [address] [facility] 7t [place] [address] Care Team Providers Care Rack Washer Name Role Phone Krysta Wilcox [facility] Primary Care Provider [phone] Reason for Visit * Reason Comments Med Refill Encounter Details Date Type Department Care Team (Late st Contact Info) Description 12/25/2024 Refill HF FCC PRIMARY/PEDS [address] [facility], [address] [place] [address] Ijeoma Monteiro [facility] [address] [facility] [address] [place] [address] Social History Tobacco Use Types Packs/Day Years [...] with others, in a hotel, in a senior care, living outside on the street, on a [...] * Telephone Encounter - DENEEN Rao - 12/29/2024 10:09 PM EDT Approving, but needs appt for additional refills. * Telephone Encounter - Brandie Orantes LPN - 12/29/2024 12:33 PM EDT KT ok to refill? documented in this encounter Plan of Treatment Not on file documented as of this encounter Visit Diagnoses Not on filedocumented in this encounter Additional Health Concerns Assessment Noted Time PHQ-9 Depression Total Score: 6 10/31/19 24 11:02 AM EST documented as of this encounter Care Teams Rack Washer Relationship Specialty Start Date End Date Krysta Wilcox FNP-BC [address] [place] [address] PCP - General Family Medicine 06/11/23 documented as of this encounter
--- OUTSIDE RECORDS SUMMARY | 2025-04-22 00:16 | XMS_ITS | Encounter Summary ---
Author Organization [facility] Address [address] [place] [address] Care Team Providers Care Presto Log Operator Name Role Phone Ha-Jaylyn Saunders MD Unavailable Estela Oglesby MD Primary Care Provider [phone] Irena Rodriguez MD Unavailable Ashtyn Love RN Unavailable Danie Flores MD Primary Care Provider Estela Oglesby MD Primary Care Provider Krysta Wilcox SNUFF GRINDER AND SCREENER Primary Care Provider [phone] Grupo Goncalves SNUFF GRINDER AND SCREENER Primary Care Provider Krysta Wilcox SNUFF GRINDER AND SCREENER Primary Care Provider Encounter Details Date Type Department Care Team (Late st Contact Info) Description 10/14/2021 Ancillary Orders [facility] - [address] [address] Ovidio Harrison MD [address] [place] [address] - [place], [place] [phone] [place] in situ Social History Tobacco Use Types Packs/Day Years [...] Description 06/25/2025 9:40 AM EDT Office Visit [facility] [address] [place] [address] Arnel Causey MD [address] [place] [address] documented as of this encounter Results * Ultrasound outside imaging (10/14/2021 2:02 PM EST) Narrative SYSTEMGENERATED, DOCUMENTATION - 10/14/2021 2:02 PM EST This order has been auto-finalized and does not contain a result. Ovidio Harrison MD [facility] US ORDERABLES Final Result * Ultrasound outside imaging (10/14/2021 2:02 PM EST) Narrative SYSTEMGENERATED, DOCUMENTATION - 10/14/2021 2:02 PM EST This order has been auto-finalized and does not contain a result. us Ovidio Harrison MD [facility] US ORDERABLES Final Result * Ultrasound outside imaging (10/14/2021 2:01 PM EST) Narrative SYSTEMGENERATED, DOCUMENTATION - 10/14/2021 2:01 PM EST This order has been auto-finalized and does not contain a result. us Ovidio Harrison MD [facility] US ORDERABLES Final Result * Ultrasound outside imaging (10/14/2021 2:01 PM EST) Narrative SYSTEMGENERATED, DOCUMENTATION - 10/14/2021 2:01 PM EST This order has been auto-finalized and does not contain a result. us Ovidio Harrison MD [facility] US ORDERABLES Final Result * Ultrasound outside imaging (10/14/2021 2:01 PM EST) Narrative SYSTEMGENERATED, DOCUMENTATION - 10/14/2021 2:01 PM EST This order has been auto-finalized and does not contain a result. Result [facility] Ovidio Harrison MD [facility] US ORDERABLES Final Result * Ultrasound outside imaging (10/14/2021 2:01 PM EST) Narrative SYSTEMGENERATED, DOCUMENTATION - 10/14/2021 2:01 PM EST This order has been auto-finalized and does not contain a result. Result [facility] Ovidio Harrison MD [facility] US ORDERABLES Final Result * Ultrasound outside imaging (10/14/2021 2:01 PM EST) Narrative SYSTEMGENERATED, DOCUMENTATION - 10/14/2021 2:01 PM EST This order has been auto-finalized and does not contain a result. Result [facility] Ovidio Harrison MD [facility] US ORDERABLES Final Result * ARLEEN outside imaging (10/14/2021 2:00 PM EST) Narrative SYSTEMGENERATED, DOCUMENTATION - 10/14/2021 2:00 PM EST This order has been auto-finalized and does not contain a result. Result [facility] Ovidio Harrison MD [facility] MAMMOGRAPHY ORDERABLES Fin al Result * ARLEEN outside imaging (10/14/2021 2:00 PM EST) Narrative SYSTEMGENERATED, DOCUMENTATION - 10/14/2021 2:00 PM EST This order has been auto-finalized and does not contain a result. Ovidio Harrison MD [facility] MAMMOGRAPHY ORDERABLES Fin al Result * ARLEEN outside imaging (10/14/2021 2:00 PM EST) Narrative SYSTEMGENERATED, DOCUMENTATION - 10/14/2021 2:00 PM EST This order has been auto-finalized and does not contain a result. Ovidio Harrison MD IMG MAMMOGRAPHY ORDERABLES Fin al Result documented in this encounter Visit Diagnoses Diagnosis [place] in situ Carcinoma in situ, site unspecified CA in situ Carcinoma in situ, site unspecified CA in situ Carcinoma in situ, site unspecified CA in situ Carcinoma in situ, site unspecified CA in situ Carcinoma in situ, site unspecified CA in situ Carcinoma in situ, site unspecified CA in situ Carcinoma in situ, site unspecified CA in situ Carcinoma in situ, site unspecified CA in situ Carcinoma in situ, site unspecified CA in situ Carcinoma in situ, site unspecified CA in situ Carcinoma in situ, site unspecified documented in this encounter Additional Health Concerns Infection Onset Date Last Indicated Resolved Time PUI COVID 11/19/2022 11/19/2022 11/19/2022 10:5 4 AM EDT PUI COVID 01/23/2025 01/24/2025 01/24/2025 12:4 2 AM EDT documented as of this encounter Care Teams Presto Log Operator Relationship Specialty Start Date End Date Ha-Jaylyn Saunders MD PCP - Family Medicine 03/01/14 Estela Oglesby MD [address] [place] [address] PCP - General Internal Medicine 12/14/17 12/26/21 Danie Soler MD [facility] [place] [address] PCP - General Internal Medicine 12/27/21 02/02/22 Estela Oglesby MD [address] [place] [address] PCP - General Internal Medicine 02/03/22 02/18/23 Krysta Wilcox NP [address] [place] [address] PCP - General Family Medicine 09/03/23 11/09/23 Grupo Goncalves NP [address] [place] [address] PCP - General Nurse Practitioner 11/10/23 03/22/25 Krysta Wilcox NP [address] [place] [address] PCP - General Family Medicine 03/23/25 Irena Rodriguez MD [address] [place] [address] [place] [address] Physician Hematology and Oncology 12/27/21 Ashtyn Love, RN Registered Nurse 12/27/21 documented as of this encounter
--- OUTSIDE RECORDS SUMMARY | 2025-04-22 00:16 | XMS_ITS | Encounter Summary ---
Author Organization [facility] Address [address] [place] [address] Care Team Providers Care Blunger Loader Name Role Phone Jaylyn Andrews MD Unavailable [phone] Irena Rodriguez MD Unavailable Ashtyn Love RN Unavailable Grupo Albarran NP Primary Care Provider [phone] Krysta Wilcox NP Primary Care Provider [phone] Reason for Referral * Diagnostic Imaging (Routine) - Authorized Specialty Diagnoses / Procedures Referred By Christal edwards Referred To Contact Radiology Diagnoses Encounter for screening mammogram for malignant neoplasm of breast Procedures ARLEEN cezar screening bilateral Krysta Wilcox NP [address] [place] [address] Phone: tel: fax: Referral ID Status Reason Start Date Expiration Date V isits Requested Visits Authorized [id number] Authorized 12/15/2024 12/15/2026 1 1 Encounter Details Date Type Department Care Team (Late st Contact Info) Description 12/15/2024 Ancillary Orders [facility] [address] [facility], [address] [place] [address] Krysta Wilcox NP [address] [place] [address] Encounter for screening mammogram for malignant neoplasm of breast (Primary Dx) Social History Tobacco Use Types Packs/Day Years Used Date Smoking Tobacco: Former Cigarettes Q uit: 12/20/1990 Smokeless Tobacco: Never Alcohol Use Standard Drinks/Week Comments Never 0 (1 standard drink = 0.6 oz pur e alcohol) Housing Stability - SDOH Screener Answer Date Recorded What is your living situation today? Steady hous ing 04/11/2024 Do you need help with Housing/Alf resources? Not on file 04/11/2024 Patient indicated [...] Description 06/25/2025 9:40 AM EDT Office Visit [facility] [address] [place] [address] Arnel Causey MD [address] [place] [address] Scheduled Orders Name Type Priority Associated Diagnoses Orde r Schedule ARLEEN cezar screening bilateral Imaging Routine Encounter for screening mammogram for malignant neoplasm of breast Expected: 12/15/2024, Expires: 12/15/2026 documented as of this encounter Visit Diagnoses Diagnosis Encounter for screening mammogram for malignant neoplasm of breast- Primary documented in this encounter Additional Health Concerns Infection Onset Date Last Indicated Resolved Time PUI COVID 01/23/2025 01/24/2025 01/24/2025 12:4 2 AM EDT documented as of this encounter Care Teams Blunger Loader Relationship Specialty Start Date End Date Jaylyn Andrews MD PCP - Family Medicine 03/01/14 Grupo Goncalves NP [address] [place] [address] PCP - General Nurse Practitioner 11/10/23 03/22/25 Krysta Wilcox NP [address] [place] [address] PCP - General Family Medicine 03/23/25 Irena Rodriguez MD [address] [place] [address] [place] [address] Physician Hematology and Oncology 12/27/21 Ashtyn Love, RN Registered Nurse 12/27/21 documented as of this encounter
--- OUTSIDE RECORDS SUMMARY | 2025-04-22 00:16 | XMS_ITS | Encounter Summary ---
Author Organization [facility] Address [address] [place] [address] Care Team Providers Care Embossing Machine Tender Name Role Phone Ha-Jaylyn Saunders MD Unavailable [phone] Estela Oglesby MD Primary Care Provider [phone] Irena Rodriguez MD Unavailable Ashtyn Love RN Unavailable Danie Flores MD Primary Care Provider Estela Oglesby MD Primary Care Provider Krysta Wilcox SATIN FINISHER Primary Care Provider Grupo Goncalves SATIN FINISHER Primary Care Provider Krysta Wilcox SATIN FINISHER Primary Care Provider Encounter Details Date Type Department Care Team (Late st Contact Info) Description 02/20/2018 [facility] - [address] [address] Social History Tobacco Use Types Packs/Day Years Used Date Smoking Tobacco: Former Cigarettes Q uit: 12/20/1990 Smokeless Tobacco: Never Comments Unknown Sex and Gender [...] Description 06/25/2025 9:40 AM EDT Office Visit [facility] [address] [place] [address] Arnel Causey MD [address] [place] [address] documented as of this encounter Visit Diagnoses Not on filedocumented in this encounter Additional Health Concerns Infection Onset Date Last Indicated Resolved Time PUI COVID 11/19/2022 11/19/2022 11/19/2022 10:5 4 AM EDT PUI COVID 01/23/2025 01/24/2025 01/24/2025 12:4 2 AM EDT documented as of this encounter Care Teams Embossing Machine Tender Relationship Specialty Start Date End Date Jaylyn Andrews MD PCP - Family Medicine 03/01/14 Estela Oglesby MD [address] [place] [address] PCP - General Internal Medicine 12/14/17 12/26/21 Danie Soler MD [address] [place] [address] PCP - General Internal Medicine 12/27/21 02/02/22 Estela Oglesby MD [address] [place] [address] PCP - General Internal Medicine 02/03/22 02/18/23 Krysta Wilcox NP [address] [place] [address] PCP - General Family Medicine 09/03/23 11/09/23 Grupo Goncalves NP [address] [place] [address] PCP - General Nurse Practitioner 11/10/23 03/22/25 Krysta Wilcox, SATIN FINISHER [address] [place] [address] PCP - General Family Medicine 03/23/25 Irena Rodriguez MD [address] [place] [address] [place] [address] Physician Hematology and Oncology 12/27/21 Ashtyn Love, RN Registered Nurse 12/27/21 documented as of this encounter
--- NOTE | 2025-04-22 00:51 | PC.NURSE ---
pt appears to be resting comfortably, respirations even and unlabored, no apparent distress is noted. Continue plan of care for IPLOC
[2025-04-22 06:23] VITALS: BP 117/56; PULSE 97; RESP 17; TEMP 36.4; O2SAT 94
--- NOTE | 2025-04-22 07:43 | ECG_ITS ---
Test Reason : prolong qtc Blood Pressure : */* mmHG Vent. Rate : 100 BPM Atrial Rate : 100 BPM P-R Int : 148 ms QRS Dur : 68 ms QT Int : 356 ms P-R-T Axes : 53 28 36 degrees QTcB Int : 459 ms Normal sinus rhythm Low voltage QRS Borderline ECG No previous ECGs available Referred By: Brenna Cardoso Electronically Signed By: BHARGAV FOWLER
[2025-04-22 08:08] VITALS: BP 121/78; PULSE 94; RESP 18; TEMP 36.5; O2SAT 95
[2025-04-22] MEDS: Aspirin Enteric Coated 81 MG TABLET.DR PO (08:30)
[2025-04-22] MEDS: Albuterol Sulfate 90 MCG 8 GM INHALER 1 PUFF INHALE (09:03)
[2025-04-22] MEDS: SELEGILINE 1 EACH TRANSDERMA (09:03)
[2025-04-22 16:00] VITALS: BP 132/80; PULSE 84; RESP 16; TEMP 36.6; O2SAT 98; BMI 44.6
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
[2025-04-22 19:53] VITALS: BP 118/63; PULSE 99; RESP 18; TEMP 36.6; O2SAT 98
[2025-04-22] MEDS: ARIPiprazole 30 MG TABLET PO (21:42)
[2025-04-23 08:00] VITALS: BP 154/82; PULSE 84; RESP 16; TEMP 36.5; O2SAT 98
[2025-04-23] MEDS: Aspirin Enteric Coated 81 MG TABLET.DR PO (08:38)
[2025-04-23] MEDS: SELEGILINE 1 EACH TRANSDERMA (08:41)
[2025-04-23 08:55] LABS: Alanine Aminotransferase 24 U/L (0-31); Albumin Level 4.0 g/dL (3.5-5.0); Alkaline Phosphatase 127 U/L (39-117); Anion Gap 13 (12-20); Aspartate Amino Transferase 35 U/L (5-31); Blood Urea Nitrogen 18 mg/dL (9-16); Calcium 9.3 mg/dL (8.4-10.2); Carbon Dioxide 29 mmol/L (22-29); Chloride 101 mmol/L (96-108); Cholesterol 203 mg/dL (<200); Creatinine Clr Calc Pharmacy 88.3; Estimated Glomerular Filt Rate > 60; HDL Cholesterol 41 mg/dL (>40); Potassium 3.8 mmol/L (3.3-5.1); Sodium 139 mmol/L (135-145); Total Protein 6.8 g/dL (6.5-8.0); Triglycerides 125 mg/dL (<150)
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
[2025-04-23 09:11] LABS: Free T4 (Free Thyroxine) 1.25 ng/dL (0.71-1.85)
[2025-04-23 09:17] LABS: Hemoglobin A1C 115.1337 umol/L; Total Hemoglobin (HGBA1C) 3307.2655 umol/L
[2025-04-23 20:00] VITALS: BP 129/79; PULSE 95; RESP 16; TEMP 36.8; O2SAT 97
[2025-04-23 21:40] VITALS: BP 131/78; PULSE 91
[2025-04-23] MEDS: ARIPiprazole 30 MG TABLET PO (21:41)
[2025-04-24 08:00] VITALS: BP 164/82; PULSE 94; RESP 16; TEMP 36.8; O2SAT 97
[2025-04-24 08:44] VITALS: BP 164/82; PULSE 94
[2025-04-24] MEDS: Aspirin Enteric Coated 81 MG TABLET.DR PO (08:44)
[2025-04-24] MEDS: SELEGILINE 1 EACH TRANSDERMA (08:47)
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
[2025-04-24 20:00] VITALS: RESP 18; TEMP 36.6; O2SAT 98
[2025-04-24 20:40] VITALS: BP 169/75; PULSE 94
[2025-04-24] MEDS: ARIPiprazole 30 MG TABLET PO (20:40)
[2025-04-25 08:45] VITALS: BP 124/61; PULSE 102; TEMP 36.6; O2SAT 96
[2025-04-25 08:57] VITALS: BP 124/61; PULSE 102
[2025-04-25] MEDS: Aspirin Enteric Coated 81 MG TABLET.DR PO (08:57)
[2025-04-25] MEDS: SELEGILINE 1 EACH TRANSDERMA (08:58)
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
[2025-04-25 20:00] VITALS: BP 145/79; PULSE 84; TEMP 36.4; O2SAT 100
[2025-04-25 21:17] VITALS: BP 154/74; PULSE 100
[2025-04-25] MEDS: ARIPiprazole 30 MG TABLET PO (21:18)
[2025-04-26 08:49] VITALS: BP 138/78; PULSE 85; RESP 16; TEMP 36.5; O2SAT 99
[2025-04-26] MEDS: Aspirin Enteric Coated 81 MG TABLET.DR PO (08:51)
[2025-04-26] MEDS: SELEGILINE 1 EACH TRANSDERMA (08:52)
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
[2025-04-26 19:49] VITALS: BP 123/56; PULSE 92; RESP 16; TEMP 36.3; O2SAT 99
[2025-04-26 21:42] VITALS: BP 123/56; PULSE 92
[2025-04-27 08:00] VITALS: BP 133/66; PULSE 86; TEMP 36.6; O2SAT 100
[2025-04-27] MEDS: Aspirin Enteric Coated 81 MG TABLET.DR PO (08:51)
[2025-04-27] MEDS: SELEGILINE 1 EACH TRANSDERMA (08:52)
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
[2025-04-27] MEDS: ARIPiprazole 30 MG TABLET PO (20:13)
[2025-04-27 20:15] VITALS: BP 122/68; PULSE 85; RESP 20; TEMP 36.8; O2SAT 100
[2025-04-28 08:00] VITALS: BP 145/77; PULSE 85; TEMP 36.4; O2SAT 98
[2025-04-28] MEDS: Aspirin Enteric Coated 81 MG TABLET.DR PO (08:26)
[2025-04-28] MEDS: SELEGILINE 1 EACH TRANSDERMA (08:26)
[2025-04-28] MEDS: Albuterol Sulfate 90 MCG 8 GM INHALER 1 PUFF INHALE (11:09)
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
[2025-04-28 20:00] VITALS: BP 130/84; PULSE 105; TEMP 36.5; O2SAT 97
[2025-04-28 22:10] VITALS: BP 130/84; PULSE 105
[2025-04-29 07:57] VITALS: BP 119/78; PULSE 90; TEMP 36.3; O2SAT 98
[2025-04-29 08:59] VITALS: BP 131/70
[2025-04-29] MEDS: SELEGILINE 1 EACH TRANSDERMA (08:59)
[2025-04-29] MEDS: Albuterol Sulfate 90 MCG 8 GM INHALER 1 PUFF INHALE ×2 (08:59→22:17)
[2025-04-29] MEDS: Aspirin Enteric Coated 81 MG TABLET.DR PO (08:59)
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
[2025-04-29 19:53] VITALS: BP 137/80; PULSE 97; RESP 16; TEMP 36.6; O2SAT 99
[2025-04-29 22:12] VITALS: BP 131/85; PULSE 102
[2025-04-29] MEDS: ARIPiprazole 30 MG TABLET PO (22:14)
[2025-04-30 07:00] VITALS: BMI 46.8
[2025-04-30 08:00] VITALS: BP 124/74; PULSE 85; RESP 16; TEMP 36.3; O2SAT 97
[2025-04-30 08:36] VITALS: BP 124/74; PULSE 85
[2025-04-30] MEDS: Aspirin Enteric Coated 81 MG TABLET.DR PO (08:36)
[2025-04-30] MEDS: SELEGILINE 1 EACH TRANSDERMA (08:40)
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
[2025-04-30 14:51] VITALS: BP 132/80
[2025-04-30] MEDS: Mag&Al/Sim/Diphenhyd/Lidocaine 10 ML ORAL.SUSP PO ×2 (17:37→22:04)
[2025-04-30 20:00] VITALS: BP 167/74; PULSE 98; RESP 20; TEMP 36.8; O2SAT 96
[2025-05-01 08:05] VITALS: BP 140/64; PULSE 95; TEMP 36.1; O2SAT 93
[2025-05-01 09:30] VITALS: BP 140/64
[2025-05-01] MEDS: Aspirin Enteric Coated 81 MG TABLET.DR PO (09:40)
[2025-05-01] MEDS: SELEGILINE 1 EACH TRANSDERMA (09:42)
[2025-05-01 10:00] VITALS: BP 140/64; PULSE 95
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
[2025-05-01 20:00] VITALS: BP 129/59; PULSE 108; RESP 16; TEMP 36.6; O2SAT 98
--- NOTE | 2025-05-01 22:19 | PC.NURSE ---
Pt refused HS Patience Antivkaela @ 2032
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
[2025-05-02 08:49] VITALS: BP 149/71; PULSE 114; RESP 18; TEMP 36.9; O2SAT 97
[2025-05-02] MEDS: Aspirin Enteric Coated 81 MG TABLET.DR PO (08:51)
[2025-05-02] MEDS: SELEGILINE TRANSDERMA (08:51)
[2025-05-02 20:00] VITALS: BP 134/93; PULSE 100; RESP 16; TEMP 37.2; O2SAT 96
[2025-05-03 08:00] VITALS: BP 139/83; PULSE 97; TEMP 36.4; O2SAT 100
[2025-05-03] MEDS: Aspirin Enteric Coated 81 MG TABLET.DR PO (08:34)
[2025-05-03] MEDS: SELEGILINE TRANSDERMA (08:34)
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
[2025-05-03 20:00] VITALS: BP 157/83; PULSE 113; TEMP 36.6; O2SAT 95
[2025-05-03] MEDS: Albuterol Sulfate 90 MCG 8 GM INHALER 1 PUFF INHALE (20:45)
[2025-05-04 08:00] VITALS: BP 150/79; PULSE 96; RESP 16; TEMP 36.7; O2SAT 97
[2025-05-04] MEDS: Aspirin Enteric Coated 81 MG TABLET.DR PO (08:41)
[2025-05-04] MEDS: Mag&Al/Sim/Diphenhyd/Lidocaine 10 ML ORAL.SUSP PO (08:41)
[2025-05-04] MEDS: SELEGILINE TRANSDERMA (08:45)
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
[2025-05-04] MEDS: Albuterol Sulfate 90 MCG 8 GM INHALER 1 PUFF INHALE (14:54)
[2025-05-04 20:00] VITALS: BP 112/67; PULSE 122; RESP 18; TEMP 36.6; O2SAT 94
--- NOTE | 2025-05-04 21:22 | PC.NURSE ---
Patient refused her carvedilol, stating It will bottom me out. This fiction writer explained that the patient is within the parameters for the medication, but the patient continued to decline this medication.
[2025-05-05 08:00] VITALS: BP 124/58; PULSE 97; TEMP 36.5; O2SAT 97
[2025-05-05] MEDS: SELEGILINE TRANSDERMA (08:25)
[2025-05-05] MEDS: Aspirin Enteric Coated 81 MG TABLET.DR PO (08:26)
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
[2025-05-06 09:00] VITALS: BP 129/77; PULSE 102; TEMP 36.8; O2SAT 99
[2025-05-06] MEDS: SELEGILINE TRANSDERMA (09:02)
[2025-05-06] MEDS: Aspirin Enteric Coated 81 MG TABLET.DR PO (09:05)
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
[2025-05-06 20:00] VITALS: BP 119/72; PULSE 108; RESP 16; TEMP 36.7; O2SAT 96
[2025-05-07 08:00] VITALS: BP 132/81; PULSE 107; TEMP 36.3; O2SAT 98
[2025-05-07] MEDS: SELEGILINE TRANSDERMA (08:37)
[2025-05-07] MEDS: Aspirin Enteric Coated 81 MG TABLET.DR PO (08:37)
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
[2025-05-07 14:44] VITALS: BMI 46.2
[2025-05-07 20:00] VITALS: BP 135/67; PULSE 101; RESP 16; TEMP 36.6; O2SAT 96
[2025-05-08 08:00] VITALS: BP 99/51; PULSE 99; RESP 16; TEMP 36.4; O2SAT 99
[2025-05-08] MEDS: SELEGILINE TRANSDERMA (08:49)
[2025-05-08] MEDS: Aspirin Enteric Coated 81 MG TABLET.DR PO (08:51)
[2025-05-08] MEDS: Albuterol Sulfate 90 MCG 8 GM INHALER 1 PUFF INHALE (08:52)
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
[2025-05-08] MEDS: Nystatin Oral Susp 500,000 UNIT/5 ML ORAL.SUSP 100000 UNIT BUCCAL ×2 (15:32→20:08)
[2025-05-08 17:46] LABS: Bacterial Vaginosis PCR NEGATIVE (Negative); Candida Group PCR NOT DETECTED (Not Detect); Candida glab krusei PCR NOT DETECTED (Not Detect); Trichomonas vaginalis PCR NOT DETECTED (Not Detect)
[2025-05-08 20:00] VITALS: BP 120/69; PULSE 98; TEMP 36.7; O2SAT 93
[2025-05-09 08:00] VITALS: BP 114/65; PULSE 90; RESP 16; TEMP 36.4; O2SAT 99
[2025-05-09] MEDS: Aspirin Enteric Coated 81 MG TABLET.DR PO (09:09)
[2025-05-09] MEDS: SELEGILINE TRANSDERMA (09:09)
[2025-05-09] MEDS: Nystatin Oral Susp 500,000 UNIT/5 ML ORAL.SUSP 100000 UNIT BUCCAL ×3 (09:10→20:56)
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
[2025-05-09 20:00] VITALS: BP 122/56; PULSE 104; TEMP 36.1; O2SAT 97
[2025-05-10 08:00] VITALS: BP 135/63; PULSE 102; RESP 16; TEMP 36.9; O2SAT 95
[2025-05-10] MEDS: Aspirin Enteric Coated 81 MG TABLET.DR PO (08:32)
[2025-05-10] MEDS: SELEGILINE TRANSDERMA (08:32)
[2025-05-10] MEDS: Nystatin Oral Susp 500,000 UNIT/5 ML ORAL.SUSP 100000 UNIT BUCCAL ×3 (08:34→20:59)
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
[2025-05-10 20:05] VITALS: BP 125/70; PULSE 93; RESP 16; TEMP 36.8; O2SAT 96
[2025-05-10 21:00] VITALS: BP 125/70; PULSE 93
[2025-05-11 08:00] VITALS: BP 148/71; PULSE 101; TEMP 36.6; O2SAT 96
[2025-05-11] MEDS: Nystatin Oral Susp 500,000 UNIT/5 ML ORAL.SUSP 100000 UNIT BUCCAL ×3 (08:48→21:32)
[2025-05-11] MEDS: SELEGILINE TRANSDERMA (08:49)
[2025-05-11] MEDS: Aspirin Enteric Coated 81 MG TABLET.DR PO (08:50)
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
[2025-05-11 20:15] VITALS: BP 136/86; PULSE 93; RESP 16; TEMP 36.4; O2SAT 97
[2025-05-11 21:33] VITALS: BP 136/86; PULSE 93
[2025-05-12 07:53] VITALS: BP 141/77; PULSE 98; TEMP 36.6; O2SAT 95
[2025-05-12] MEDS: SELEGILINE TRANSDERMA (08:42)
[2025-05-12] MEDS: Nystatin Oral Susp 500,000 UNIT/5 ML ORAL.SUSP 100000 UNIT BUCCAL ×3 (08:43→21:42)
[2025-05-12] MEDS: Aspirin Enteric Coated 81 MG TABLET.DR PO (08:44)
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
[2025-05-12] MEDS: Albuterol Sulfate 90 MCG 8 GM INHALER 1 PUFF INHALE (10:43)
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
[2025-05-12] MEDS: Erythromycin Base 0.5% Oph Oin 1 GM TUBE 1 CM EYE-RIGHT ×2 (15:24→17:35)
--- NOTE | 2025-05-12 19:10 | PM.EVENT ---
Event Note Date of Service: 05/12/25 Event Note: Received message from psychiatry about urine culture growing < 63074 CFU strep alginate. Likely a contaminate noting number of squamous epithelium in UA. Order placed to repeat urine culture only using clean catch method. Will hold on starting ABX at this time as UA low threshold for UA. Notified nursing of the plan and encouraged pt to hydrate as best as possible. Time Spent With Patient Time: Total time managing care of this patient today ____ minutes.
[2025-05-12 20:00] VITALS: BP 132/75; PULSE 98; TEMP 36.4; O2SAT 96
[2025-05-12 21:38] VITALS: BP 132/75; PULSE 98
--- NOTE | 2025-05-12 21:45 | PC.NURSE ---
Patient refused Erythromycin eye ointment, stating It's still in there while pointing at right eye. She further stated you woke me up for this referring to assessment, and I just want to go back to sleep, forget it.
[2025-05-13 08:09] VITALS: BP 147/79; PULSE 98; TEMP 36.8; O2SAT 96
[2025-05-13] MEDS: Erythromycin Base 0.5% Oph Oin 1 GM TUBE 1 CM EYE-RIGHT ×4 (08:47→20:32)
[2025-05-13] MEDS: Aspirin Enteric Coated 81 MG TABLET.DR PO (08:48)
[2025-05-13] MEDS: Nystatin Oral Susp 500,000 UNIT/5 ML ORAL.SUSP 100000 UNIT BUCCAL ×3 (08:51→20:32)
[2025-05-13] MEDS: SELEGILINE TRANSDERMA (09:00)
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
[2025-05-13 14:48] LABS: Appearance Urine Cloudy; Glucose Urine UA Negative (Negative); PH 7.5 (5.0-9.0); Specific Gravity - Urine 1.010 (1.005-1.025); UMIC TRIGGER UA YES
[2025-05-13 16:14] LABS: CT PCR Urine NOT DETECTED (Not Detect.); NG PCR Urine NOT DETECTED (Not Detect.)
[2025-05-13 20:00] VITALS: BP 134/74; PULSE 104; RESP 16; TEMP 36.6; O2SAT 99
[2025-05-13 20:32] VITALS: BP 134/79; PULSE 104
[2025-05-14 07:00] VITALS: BMI 46.3
[2025-05-14 08:00] VITALS: BP 119/78; PULSE 84; RESP 15; TEMP 36.9; O2SAT 96
[2025-05-14] MEDS: Nystatin Oral Susp 500,000 UNIT/5 ML ORAL.SUSP 100000 UNIT BUCCAL ×3 (08:50→20:39)
[2025-05-14] MEDS: SELEGILINE TRANSDERMA (08:52)
[2025-05-14 08:54] VITALS: BP 119/78; PULSE 84
[2025-05-14] MEDS: Aspirin Enteric Coated 81 MG TABLET.DR PO (08:54)
[2025-05-14 08:55] VITALS: BP 119/78
[2025-05-14] MEDS: Erythromycin Base 0.5% Oph Oin 1 GM TUBE 1 CM EYE-RIGHT ×3 (08:55→18:04)
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
--- NOTE | 2025-05-14 12:00 | PC.NURSE ---
Pt was offered and encouraged to provide vaginal smaple for lab. She refuses at this time. Provider aware.
--- NOTE | 2025-05-14 18:07 | PC.NURSE ---
Pt refused 1700 prolixin. Reported to provider.
[2025-05-14 20:00] VITALS: BP 132/70; PULSE 94; RESP 16; TEMP 36.8; O2SAT 99
[2025-05-15 08:00] VITALS: BP 126/80; PULSE 83; RESP 16; TEMP 36.8; O2SAT 98
--- NOTE | 2025-05-15 08:44 | HO.PM.IMPN ---
Subjective Subjective Date of Service: 05/15/25 Interval History: Patient has been reporting symptoms of thrush. Reports that she was taking nystatin swish and spit, she completed a 3 day course. She denies any throat pain, has a white coating on her tongue. Denies any mouth pain, denies any trouble swallowing. She has also recently treated for a bacterial conjunctivitis which is improving. She otherwise feels well denies any shortness of breath, dizziness, lightheadedness fever chills or any other concerning symptoms Review of Systems Denies any shortness of breath, chest pain, dizziness, lightheadedness, abdominal pain or discomfort, nausea vomiting or diarrhea Physical Exam Exam: Exam: CONST: Alert and oriented, in NAD. Well nourished HEENT: Normocephalic, atraumatic, MMM, Eyes clear, Neck supple. White coating on tongue and inner cheeks. RESP: Lungs clear, RRR even and regular HEART:,RRR, S1, S2. No edema GI:Abdomen Soft NT, ND. + BS times four :Deferred SKIN: Warm dry and intact, no visible lesions or rashes NEURO:CN II-XII Intact bilaterally, Sensation intact. Speech clear PSYCH: Normal affect Vital Signs: Vital Signs: Last Vital Signs Temp 98.2 F 05/14/25 20:00 Pulse 94 05/14/25 20:00 Resp 16 05/14/25 20:00 BP 132/70 05/14/25 20:00 Pulse Ox 99 05/14/25 20:00 O2 Del Method Room Air 05/14/25 20:00 BMI result Body Mass Index 46.3 Objective Data Active Medications Al Hydroxide/Mg Hydroxide (Magnesium Hydrox/Alum Hydrox 30 Ml Oral.Susp) 30 ml PO Q6H PRN PRN Reason: Heartburn/Nausea Albuterol Sulfate (Albuterol Sulfate 90 Mcg 8 Gm Inhaler) 1 puff INHALE Q4H PRN PRN Reason: Wheezing Last Admin: 05/12/25 10:43 Dose: 1 puff Documented By: JESSICA Aripiprazole (Aripiprazole Er 400 Mg Suser.Syr) 400 mg IM Q28D [facility] Aripiprazole (Aripiprazole 20 Mg Tablet) 20 mg PO BEDTIME [facility] Last Admin: 05/14/25 21:00 Dose: Not Given Documented By: CARRI Non-Admin Reason: Patient Refused Comments: Reported she had already taken some other meds don't want this one Aspirin (Aspirin Enteric Coated 81 Mg Tablet.) 81 mg PO DAILY [facility] Last Admin: 05/14/25 08:54 Dose: 81 mg Documented By: KAMILAH Bumetanide (Bumetanide 1 Mg Tablet) 2 mg PO DAILY [facility]; Protocol Last Admin: 05/14/25 08:55 Dose: 2 mg Documented By: KAMILAH Carvedilol (Carvedilol 6.25 Mg Tablet) 6.25 mg PO BID [facility]; Protocol Last Admin: 05/14/25 20:39 Dose: 6.25 mg Documented By: CARRI Docusate Sodium (Docusate Sodium 100 Mg Capsule) 100 mg PO BID [facility] Last Admin: 05/14/25 20:40 Dose: 100 mg Documented By: CARRI Erythromycin (Erythromycin Base 0.5% Oph Oin 1 Gm Tube) 1 cm EYE-RIGHT QID [facility] Stop: 05/17/25 12:59 Last Admin: 05/14/25 21:01 Dose: Not Given Documented By: CARRI Non-Admin Reason: Patient Refused Fluphenazine HCl (Fluphenazine Hcl 2.5 Mg Tablet) 7.5 mg PO BID@0900,1700 [facility] Last Admin: 05/14/25 19:13 Dose: 7.5 mg Documented By: KAMILAH Fluticasone Propionate (Fluticasone Propionate Nasal 16 Gm [place]) 1 spray NOSTRIL-B DAILY PRN PRN Reason: Nasal Congestion Last Admin: 05/14/25 09:27 Dose: 1 spray Documented By: KAMILAH Hydroxyzine HCl (Hydroxyzine Hcl 25 Mg Tablet) 25 mg PO Q6H PRN PRN Reason: mild anxiety Ibuprofen (Ibuprofen 600 Mg Tablet) 600 mg PO Q8H PRN PRN Reason: Pain, (Pain Scale 1-10) Last Admin: 05/13/25 13:40 Dose: 600 mg Documented By: GIANNI Lidocaine/Diphenhydr/Alum/Mg/Simeth (Mag&Al/Sim/Diphenhyd/Lidocaine 10 Ml Oral.Susp) 10 ml PO Q4H PRN; Protocol PRN Reason: pain, soreness Last Admin: 05/04/25 08:41 Dose: 10 ml Documented By: JUS Loratadine (Loratadine 10 Mg Tablet) 10 mg PO DAILY PRN PRN Reason: allergy symptoms Last Admin: 05/12/25 08:44 Dose: 10 mg Documented By: JESSICA Magnesium Hydroxide (Milk Of Magnesia 30 Ml Oral.Susp) 30 ml PO DAILY PRN PRN Reason: Constipation Meclizine HCl (Meclizine Hcl 25 Mg Tablet) 25 mg PO TID [facility] Last Admin: 05/14/25 20:40 Dose: 25 mg Documented By: CARRI Nicotine Polacrilex (Nicotine Polacrilex 2 Mg Gum) 4 mg BUCCAL Q2H PRN PRN Reason: Nicotine Cravings Nystatin (Nystatin Oral Susp 500,000 Unit/5 Ml Oral.Susp) 100,000 unit BUCCAL TID [facility]; Protocol Last Admin: 05/14/25 20:39 Dose: 100,000 unit Documented By: CARRI Polyethylene Glycol (Polyethylene Glycol 3350 17 Gm Powd.Pack) 17 gm PO DAILY PRN PRN Reason: Constipation Last Admin: 05/11/25 17:37 Dose: 17 gm Documented By: JESSICA Trazodone HCl (Trazodone Hcl 50 Mg Tablet) 50 mg PO BEDTIME MRX1 PRN PRN Reason: Insomnia Labs 04/21/25 23:11 04/23/25 08:13 Assessment and Plan (1) Oral thrush: Status: Acute Plan 54-year-old female with a past medical history of major depressive disorder, PTSD, psychosis, hypertension is admitted on M5 for further care and treatment. Patient is being seen today for oral thrush. Major depressive disorder/PTSD/psychosis Treatment per psychiatric team Oral Thrush Physical exam consistent with oral thrush we will treat with nystatin swish and spit for 14 days. Bacterial conjunctivitis Physical exam consistent with bacterial conjunctivitis Improving with erythromycin QID for 5 days Abnormal urinalysis Patient with less than 10,000 CFUmL of B strep Asymptomatic aside from reported green discharge to nursing. No indication to treat at this time, repeat urinalysis if patient becomes symptomatic. We will check a urine for GC and chlamydia to rule out STD Recent bacterial vaginosis swab was negative HTN Continue Coreg and ASA Recent A1c 5.3 Thank you for allowing me to participate in the care of this patient. Will follow as needed, please notify medical provider with any changes in condition or concerns. Quality Stroke Does the patient have a stroke diagnosis?: No VTE Prior VTE?: No VTE Risk Level:: Medical - low VTE Device Contraindication: Treatment Not Indicated VTE Drug Contraindication: Treatment Not Indicated
[2025-05-15] MEDS: SELEGILINE TRANSDERMA (08:49)
[2025-05-15] MEDS: Nystatin Oral Susp 500,000 UNIT/5 ML ORAL.SUSP 100000 UNIT BUCCAL (08:50)
[2025-05-15] MEDS: Aspirin Enteric Coated 81 MG TABLET.DR PO (08:51)
[2025-05-15 08:52] VITALS: BP 126/80
[2025-05-15 08:53] VITALS: BP 126/80; PULSE 83
[2025-05-15] MEDS: Erythromycin Base 0.5% Oph Oin 1 GM TUBE 1 CM EYE-RIGHT ×4 (08:53→20:45)
[2025-05-15] MEDS: Nystatin Oral Susp 500,000 UNIT/5 ML ORAL.SUSP 500000 UNIT PO ×3 (13:35→20:45)
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
[2025-05-15 20:00] VITALS: BP 114/66; PULSE 89; RESP 20; TEMP 36.4; O2SAT 95
[2025-05-16 08:00] VITALS: BP 135/88; PULSE 84; TEMP 36.4; O2SAT 97
[2025-05-16] MEDS: SELEGILINE TRANSDERMA (08:42)
[2025-05-16] MEDS: Aspirin Enteric Coated 81 MG TABLET.DR PO (08:42)
[2025-05-16] MEDS: Nystatin Oral Susp 500,000 UNIT/5 ML ORAL.SUSP 500000 UNIT PO ×4 (08:42→20:49)
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
[2025-05-16 19:39] VITALS: BP 144/77; PULSE 61; RESP 18; TEMP 36.4; O2SAT 97
[2025-05-17 08:00] VITALS: BP 131/88; PULSE 85; TEMP 36.6; O2SAT 96
[2025-05-17] MEDS: SELEGILINE TRANSDERMA (08:28)
[2025-05-17] MEDS: Aspirin Enteric Coated 81 MG TABLET.DR PO (08:29)
[2025-05-17] MEDS: Nystatin Oral Susp 500,000 UNIT/5 ML ORAL.SUSP 500000 UNIT PO ×4 (08:29→19:56)
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
[2025-05-17 19:57] VITALS: BP 133/79; PULSE 92
[2025-05-17 20:00] VITALS: BP 133/79; PULSE 92; RESP 18; TEMP 36.7; O2SAT 97
[2025-05-18 08:17] VITALS: BP 153/70; PULSE 99; RESP 16; TEMP 36.4; O2SAT 96
[2025-05-18] MEDS: SELEGILINE TRANSDERMA (08:33)
[2025-05-18] MEDS: Aspirin Enteric Coated 81 MG TABLET.DR PO (08:35)
[2025-05-18] MEDS: Nystatin Oral Susp 500,000 UNIT/5 ML ORAL.SUSP 500000 UNIT PO ×4 (08:38→20:17)
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
[2025-05-18 20:00] VITALS: BP 152/66; PULSE 100; TEMP 36.6; O2SAT 96
[2025-05-18 20:17] VITALS: BP 152/66; PULSE 100
[2025-05-18] MEDS: Albuterol Sulfate 90 MCG 8 GM INHALER 1 PUFF INHALE (20:18)
[2025-05-19 08:00] VITALS: BP 131/63; PULSE 81; TEMP 36.7; O2SAT 98
[2025-05-19] MEDS: SELEGILINE TRANSDERMA (08:48)
[2025-05-19] MEDS: Nystatin Oral Susp 500,000 UNIT/5 ML ORAL.SUSP 500000 UNIT PO ×4 (08:50→22:31)
[2025-05-19] MEDS: Aspirin Enteric Coated 81 MG TABLET.DR PO (08:51)
[2025-05-19] MEDS: Flu Vacc TS2025-26(6mo up)/PF 0.5 ML SYRINGE IM (10:36)
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
[2025-05-19 20:00] VITALS: BP 130/87; PULSE 99; RESP 18; TEMP 36.3; O2SAT 96
[2025-05-20 08:00] VITALS: BP 136/81; PULSE 88; TEMP 36.1; O2SAT 96
[2025-05-20] MEDS: SELEGILINE TRANSDERMA (08:34)
[2025-05-20] MEDS: Nystatin Oral Susp 500,000 UNIT/5 ML ORAL.SUSP 500000 UNIT PO ×4 (08:35→20:43)
[2025-05-20] MEDS: Aspirin Enteric Coated 81 MG TABLET.DR PO (08:37)
[2025-05-20 19:44] VITALS: BP 136/73; PULSE 93; TEMP 36.4; O2SAT 94
[2025-05-20 20:43] VITALS: BP 136/73; PULSE 93
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
[2025-05-21 07:00] VITALS: BMI 45.1
[2025-05-21 08:00] VITALS: BP 136/63; PULSE 94; RESP 16; TEMP 35.9; O2SAT 96
[2025-05-21] MEDS: SELEGILINE TRANSDERMA (08:37)
[2025-05-21] MEDS: Albuterol Sulfate 90 MCG 8 GM INHALER 1 PUFF INHALE (08:37)
[2025-05-21] MEDS: Nystatin Oral Susp 500,000 UNIT/5 ML ORAL.SUSP 500000 UNIT PO ×4 (08:38→21:35)
[2025-05-21 08:39] VITALS: BP 136/63; PULSE 94
[2025-05-21] MEDS: Aspirin Enteric Coated 81 MG TABLET.DR PO (08:39)
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
[2025-05-21 20:20] VITALS: BP 124/67; PULSE 93; RESP 16; TEMP 36.7; O2SAT 97
[2025-05-22 08:00] VITALS: BP 127/58; PULSE 95; RESP 16; TEMP 36.7; O2SAT 96
[2025-05-22] MEDS: Nystatin Oral Susp 500,000 UNIT/5 ML ORAL.SUSP 500000 UNIT PO ×4 (08:50→20:12)
[2025-05-22] MEDS: SELEGILINE TRANSDERMA (08:50)
[2025-05-22] MEDS: Aspirin Enteric Coated 81 MG TABLET.DR PO (08:51)
[2025-05-22] MEDS: Albuterol Sulfate 90 MCG 8 GM INHALER 1 PUFF INHALE (08:57)
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
[2025-05-22 20:00] VITALS: BP 138/66; PULSE 109; TEMP 36.5; O2SAT 96
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
[2025-05-23 08:00] VITALS: BP 117/72; PULSE 101; RESP 18; TEMP 36.5; O2SAT 95
[2025-05-23] MEDS: SELEGILINE TRANSDERMA (08:31)
[2025-05-23] MEDS: Nystatin Oral Susp 500,000 UNIT/5 ML ORAL.SUSP 500000 UNIT PO ×4 (08:33→20:01)
[2025-05-23] MEDS: Aspirin Enteric Coated 81 MG TABLET.DR PO (08:34)
[2025-05-23 19:58] VITALS: BP 128/60; PULSE 93; TEMP 36.3; O2SAT 99
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
[2025-05-24 07:48] VITALS: BP 169/81; PULSE 86; RESP 18; TEMP 36.7; O2SAT 96
[2025-05-24] MEDS: SELEGILINE TRANSDERMA (08:32)
[2025-05-24] MEDS: Aspirin Enteric Coated 81 MG TABLET.DR PO (08:33)
[2025-05-24] MEDS: Nystatin Oral Susp 500,000 UNIT/5 ML ORAL.SUSP 500000 UNIT PO ×4 (08:33→21:06)
[2025-05-25 07:53] VITALS: BP 156/84; PULSE 109; TEMP 36.3; O2SAT 96
[2025-05-25] MEDS: Aspirin Enteric Coated 81 MG TABLET.DR PO (08:12)
[2025-05-25] MEDS: Nystatin Oral Susp 500,000 UNIT/5 ML ORAL.SUSP 500000 UNIT PO ×4 (08:12→21:35)
[2025-05-25] MEDS: SELEGILINE TRANSDERMA (08:13)
[2025-05-25] MEDS: Albuterol Sulfate 90 MCG 8 GM INHALER 1 PUFF INHALE (11:37)
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
[2025-05-25 22:53] VITALS: BP 95/55; PULSE 99; RESP 16; TEMP 35.9; O2SAT 99
[2025-05-26 08:00] VITALS: BP 140/94; PULSE 101; TEMP 36.4; O2SAT 98
[2025-05-26] MEDS: Nystatin Oral Susp 500,000 UNIT/5 ML ORAL.SUSP 500000 UNIT PO ×3 (08:31→20:54)
[2025-05-26] MEDS: SELEGILINE TRANSDERMA (08:32)
[2025-05-26] MEDS: Aspirin Enteric Coated 81 MG TABLET.DR PO (08:33)
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
[2025-05-26 20:00] VITALS: BP 142/60; PULSE 98; TEMP 36.4; O2SAT 94
[2025-05-26 20:55] VITALS: BP 142/60; PULSE 98
[2025-05-27 08:12] VITALS: BP 166/89; PULSE 97; TEMP 36.4; O2SAT 95
[2025-05-27] MEDS: Nystatin Oral Susp 500,000 UNIT/5 ML ORAL.SUSP 500000 UNIT PO ×4 (08:56→20:35)
[2025-05-27] MEDS: SELEGILINE TRANSDERMA (08:57)
[2025-05-27] MEDS: Aspirin Enteric Coated 81 MG TABLET.DR PO (08:57)
[2025-05-27] MEDS: Albuterol Sulfate 90 MCG 8 GM INHALER 1 PUFF INHALE (09:02)
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
[2025-05-28 08:00] VITALS: BP 130/73; PULSE 88; RESP 18; TEMP 35.7; O2SAT 98
[2025-05-28] MEDS: SELEGILINE TRANSDERMA (08:43)
[2025-05-28] MEDS: Nystatin Oral Susp 500,000 UNIT/5 ML ORAL.SUSP 500000 UNIT PO ×4 (08:43→20:04)
[2025-05-28] MEDS: Aspirin Enteric Coated 81 MG TABLET.DR PO (08:44)
[2025-05-28] MEDS: Albuterol Sulfate 90 MCG 8 GM INHALER 1 PUFF INHALE (08:52)
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
[2025-05-28 19:52] VITALS: BP 139/90; PULSE 99; TEMP 36.5; O2SAT 95
[2025-05-28 20:04] VITALS: BP 139/90; PULSE 99
[2025-05-29 08:06] VITALS: BP 128/71; PULSE 88; TEMP 35.8; O2SAT 96
[2025-05-29] MEDS: Aspirin Enteric Coated 81 MG TABLET.DR PO (08:57)
[2025-05-29] MEDS: SELEGILINE TRANSDERMA (08:57)
[2025-05-29] MEDS: Nystatin Oral Susp 500,000 UNIT/5 ML ORAL.SUSP 500000 UNIT PO (08:58)
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
[2025-05-29 20:27] VITALS: BP 147/67; PULSE 100; RESP 16; TEMP 36.4; O2SAT 95
[2025-05-29 20:46] VITALS: BP 147/67; PULSE 100
[2025-05-30 08:00] VITALS: BP 129/71; PULSE 99; TEMP 35.6; O2SAT 94
[2025-05-30] MEDS: Aspirin Enteric Coated 81 MG TABLET.DR PO (09:03)
[2025-05-30] MEDS: SELEGILINE TRANSDERMA (09:03)
[2025-05-30] MEDS: Albuterol Sulfate 90 MCG 8 GM INHALER 1 PUFF INHALE (15:39)
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
[2025-05-30 20:22] VITALS: BP 119/83; PULSE 98
[2025-05-30 20:28] VITALS: BP 119/83; PULSE 98; RESP 16; TEMP 36.8; O2SAT 95
[2025-05-31 08:00] VITALS: BP 135/90; PULSE 94; TEMP 36; O2SAT 95
[2025-05-31] MEDS: SELEGILINE TRANSDERMA (08:46)
[2025-05-31] MEDS: Aspirin Enteric Coated 81 MG TABLET.DR PO (08:47)
[2025-05-31] MEDS: Albuterol Sulfate 90 MCG 8 GM INHALER 1 PUFF INHALE (08:50)
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
[2025-05-31 20:00] VITALS: BP 140/76; PULSE 83; RESP 16; TEMP 36.7; O2SAT 96
[2025-05-31 21:25] VITALS: BP 140/76; PULSE 83
[2025-06-01 08:42] VITALS: BP 107/59; PULSE 100; RESP 16; TEMP 35.9; O2SAT 98
[2025-06-01] MEDS: SELEGILINE TRANSDERMA (08:44)
[2025-06-01] MEDS: Aspirin Enteric Coated 81 MG TABLET.DR PO (08:48)
[2025-06-01] MEDS: Albuterol Sulfate 90 MCG 8 GM INHALER 1 PUFF INHALE ×2 (08:50→20:53)
--- NOTE | 2025-06-01 10:22 | PM.PSYDC ---
DS: Providers Provider Date of admission: 04/22/25 14:12 Primary care physician: Unknown Physician Consults: 05/12/25 17:43 Consult to Hospitalist Routine Comment: [place] [facility] [place] Reason For Exam: Strep Agalactiae grp B urine; symptomatic. ABx DS: Diagnosis Discharge Diagnosis (1) Schizophrenia: Status: Acute (2) PTSD (post-traumatic stress disorder): Status: Acute DS: Medications Discharge Medications Home Medications: Previous Rx's ?Medication ?Instructions ?Recorded selegiline 9 mg/24 hr transdermal 1 patch transdermal DAILY 05/01/25 24 hour patch (Emsam) depressive disorder #30 ea albuterol sulfate 90 mcg/actuation 1 puff inhalation Q4H PRN wheezing 05/27/25 aerosol inhaler #1 inhaler aripiprazole 5 mg tablet (Abilify) 5 mg PO BEDTIME #15 tabs 05/27/25 aspirin 81 mg tablet,delayed 81 mg PO DAILY #15 tabs 05/27/25 release bumetanide 1 mg tablet 2 mg PO DAILY #15 tabs 05/27/25 carvedilol 12.5 mg tablet 6.25 mg (1/2 x 12.5 mg) PO BID #30 05/27/25 tabs fluticasone propionate 50 1 spray intranasal DAILY PRN Nasal 05/27/25 mcg/actuation nasal Congestion #1 inhaler spray,suspension loratadine 10 mg tablet 10 mg PO DAILY #15 tabs 05/27/25 meclizine 25 mg tablet 25 mg PO TID #45 tabs 05/27/25 selegiline 9 mg/24 hr transdermal 9 mg transdermal DAILY #30 ea 05/27/25 24 hour patch (Emsam) fluphenazine HCl 5 mg tablet 15 mg (3 x 5 mg) PO BID #0 tabs 06/01/25 fluphenazine HCl 5 mg tablet 15 mg (3 x 5 mg) PO BID #90 tabs 06/01/25 Data Data Completed and Pending Completed studies during hospitalization [Text1]: 05/11/25 11:47 Urine clean catch - Clean Catch Midstream Urine Culture - Final Strep agalactiae (Grp B) 04/21/25 Unknown Urine clean catch - Clean Catch Midstream Urine Culture - Final DS: Summary Time Spent with Patient Time attestation: Total time managing care of this patient today ____ minutes. Discharge Plan Discharge Anticipated Discharge Date/Time: 06/01/25 11:00 Patient Disposition: Xfer Other Discharge Diagnosis: PTSD Schizophrenia Referrals: Arnel Clark: [facility] (psychiatry) [Other] - 05/28/25 2:00 pm Referral Note: Hospital discharge appointment Initial psychiatric evaluation to establish for medication management services. Appointment is in person. Ludivina Wilcox: [facility] (primary care) [Other] - 06/08/25 1:20 pm Referral Note: Hospital discharge follow-up with primary care provider. Discharge Medications: New meclizine 25 mg Tablet 25 mg PO TID Qty: 45 1RF bumetanide 1 mg Tablet 2 mg PO DAILY Qty: 15 1RF Protocol: Hold for SBP< HOLD for SBP < : 90 fluticasone propionate 50 mcg/actuation [place],Suspension 1 spray intranasal DAILY PRN (Reason: Nasal Congestion) Qty: 1 0RF loratadine 10 mg Tablet 10 mg PO DAILY Qty: 15 1RF aripiprazole [Abilify] 5 mg Tablet 5 mg PO BEDTIME Qty: 15 1RF Emsam 9 mg/24 hr patch 24 hour 9 mg transdermal DAILY Qty: 30 0RF fluphenazine HCl 5 mg Tablet 15 mg PO BID Qty: 0 1RF fluphenazine HCl 5 mg tablet 15 mg PO BID Qty: 90 1RF Continued Emsam 9 mg/24 hr patch 24 hour 1 patch transdermal DAILY Qty: 30 0RF aspirin 81 mg tablet,delayed release (DR/EC) 81 mg PO DAILY Qty: 15 1RF albuterol sulfate 90 mcg/actuation HFA aerosol inhaler 1 puff inhalation Q4H PRN (Reason: wheezing) Qty: 1 0RF carvedilol 12.5 mg tablet 6.25 mg PO BID Qty: 30 1RF Rx Instructions: hold for SBP less than 100, HR less than 60 Discontinued meclizine 25 mg tablet 25 mg PO TID aripiprazole 30 mg Tablet 30 mg PO BEDTIME Abilify Maintena 400 mg Suspension,Extended Rel Recon 400 mg IM QMONTH Discharge Orders: Discharge Order (Routine); Ordered 06/01/25 Ordered By: Neema Paredes Diet: Advance to usual diet Activity on Discharge: As tolerated Stand Alone Forms: Patient Portal Discharge page, Community Support Print Language: Italian Care Plan Goals: Mood and Behavioral Stabilization Health Concerns: Mood and Behavioral Stabilization Plan of Treatment: Attend scheduled appointments Take medications as directed Assessment: Denies SI,HI,AH, VH Chronic delusional thought process Has refused service referrals through DM Will return to OP provider team and to her home area of [place], [place]
[2025-06-01 20:28] VITALS: BP 120/73; PULSE 110; RESP 17; TEMP 35.8; O2SAT 97
[2025-06-01 20:52] VITALS: BP 120/73; PULSE 110
[2025-06-01 22:49] VITALS: PULSE 90
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
[2025-06-02 08:00] VITALS: BP 136/64; PULSE 93; RESP 15; TEMP 36.6; O2SAT 96
[2025-06-02] MEDS: Aspirin Enteric Coated 81 MG TABLET.DR PO (08:31)
[2025-06-02] MEDS: SELEGILINE TRANSDERMA (08:31)
[2025-06-02 08:32] VITALS: BP 136/64; PULSE 93
[2025-06-02 08:34] VITALS: BP 136/64
[2025-06-02] MEDS: Albuterol Sulfate 90 MCG 8 GM INHALER 1 PUFF INHALE (08:41)
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
== END 2025-06-02 11:00 | disposition other institution (70) | DRG 885 ==
LOC: HO.ED 04-22 00:08 → HO.PM5 04-22 14:12
PROVIDERS: Nurse Practitioner Family; Psychiatry & Neurology Psychiatry; Admitting Provider Nurse Practitioner Family; Emergency Provider Emergency Medicine; Visit Provider Clinical Nurse Specialist Psychiatric/Mental Health, Adult
DX: F33.9 Major depressive disorder, recurrent, unspecified (principal); F43.12 Post-traumatic stress disorder, chronic; H10.9 Unspecified conjunctivitis; Z23 Encounter for immunization; Z79.82 Long term (current) use of aspirin; Z79.899 Other long term (current) drug therapy
CPT/HCPCS: 36415; 80053; 80061; 80307; 81001; 81025; 81515; 83036; 84439; 85025; 87086; 87147; 87491; 87591; 90656; 93005; 99285; S9485

== ENCOUNTER → 2025-04-22 07:43 | Outpatient (BNV) | payer MEDICARE, MEDICAID, SELFPAY | PROVIDERS: Admitting Provider Nurse Practitioner Family; Emergency Provider Emergency Medicine; Visit Provider Internal Medicine | DX: R94.31 Abnormal electrocardiogram [ECG] [EKG] (principal) | CPT/HCPCS: 93010 ==

== ENCOUNTER → 2025-04-22 14:12 | Outpatient (BNV) | payer MEDICARE, SELFPAY | PROVIDERS: Admitting Provider Nurse Practitioner Family; Emergency Provider Emergency Medicine; Visit Provider Nurse Practitioner Family | DX: F33.2 Major depressive disorder, recurrent severe without psychotic features (principal); F43.11 Post-traumatic stress disorder, acute | CPT/HCPCS: 90792; 99231; 99232 ==

== ENCOUNTER → 2025-04-22 14:12 | Outpatient (BNV) | payer MEDICARE, SELFPAY | PROVIDERS: Admitting Provider Nurse Practitioner Family; Emergency Provider Emergency Medicine; Visit Provider Nurse Practitioner Family | DX: B37.0 Candidal stomatitis (principal) | CPT/HCPCS: 99221; 99231; 99499 ==